=== PATIENT | male | born 1950 | race Caucasian/White ===

== ENCOUNTER 2016-08-10 19:35 | Emergency (ER) | payer MEDICARE, BC ==
[2016-08-10 21:35] VITALS: BP 105/64
--- NOTE | 2016-08-11 03:55 | ER ---
DATE SEEN: 08/10/2016 TIME SEEN: 2000 hours. REASON FOR VISIT: Dizziness. HISTORY OF PRESENT ILLNESS: This is a 66-year-old male, who [facility] after feeling dizzy. He states that he has been working out and went to the sauna, stayed there for few minutes. On the locker room, he felt dizzy and lightheaded, but did not faint. By the time I saw him after a few minutes of resting, he stated that he felt better. He denies any chest pain. PAST MEDICAL HISTORY: History of palpitations, hypertension, physical deconditioning. MEDICATIONS: Reviewed. Please see the electronic record. ALLERGIES: Reviewed. Please see the electronic record. PHYSICAL EXAMINATION: VITAL SIGNS: He had a blood pressure 122/96, initial temperature 97.8, pulse 121 beats per minute, oxygenation was 98% on room air. ENT: Negative. HEAD: Normal size. EYES: Normal. CHEST: Clear. CARDIOVASCULAR: Mild tachycardia. No murmurs. EXTREMITIES: No edema. MENTAL STATUS: Alert. Answers questions appropriately. LABORATORY DATA: White cell count was normal. Normal hemoglobin. Sodium 136, CO2 was 22. Electrolytes were normal. EKG: I reviewed the EKG that showed mild junctional tachycardia about 107 beats per minute. FINAL IMPRESSION: Exertion due to over exertion. PLAN: The patient was rested, had something to eat and drink. He felt better. Discharge to home to follow up p.r.n. with his PCP. /[id number] MIKE/TI
--- NOTE | 2016-08-22 05:29 | ER ---
DATE SEEN: 08/10/2016 ADDENDUM: IMPRESSION: Exhaustion due to physical over exertion. /[id number] MIKE/TI [place]
== END 2016-08-10 21:25 | disposition home or self-care (01) ==
LOC: FB.ED 19:35
DX: T73.3XXA Exhaustion due to excessive exertion, initial encounter (principal); I10 Essential (primary) hypertension
CPT/HCPCS: 36415; 80053; 84484; 85025; 93005; 99283; 99284

== ENCOUNTER 2016-08-16 20:01 | Emergency (ER) | payer MEDICARE, BC ==
[2016-08-16 20:54] VITALS: BP 124/69
--- NOTE | 2016-08-17 12:05 | CR ---
INDICATION: Transient chest pain. CHEST: Two AP views of the chest were obtained upright 08/16/2016 and compared with 06/25/2016 and 01/02/2016, revealing what appears to be some fibrotic change at the left costophrenic angle and/or atelectatic change in that area, with a prominent epicardial fat pad. It is difficult to entirely exclude minimal pneumonia in that area. The heart did not appear grossly enlarged, but appeared somewhat prominent. The aorta is tortuous with calcification in the arch. Overlying EKG leads are noted. The lungs appear to be hyperaerated, raising question of COPD. No definite consolidating pneumonia or effusion was seen. IMPRESSION: 1. Linear densities are again noted at the left costophrenic angle, with what appears to be a prominent epicardial fat pad. Findings may be on the basis of linear atelectasis and/or fibrosis in that area, but make it difficult to exclude minimal patchy pneumonia and minimal pleuritis in that area. 2. Probable COPD. 3. Probable ASHD with ASD aorta. MTDD
--- NOTE | 2016-08-21 09:54 | ER ---
DATE SEEN: 08/16/2016 TIME SEEN: The patient was seen at 2115 hours. CHIEF COMPLAINT: Chest pressure, aches, chest pain. The patient was out walking today and he noted that he did not feel good. When seen in the clinic, his blood pressure was 76/56 and was thought to be dehydrated. Dr. Cervantes gave him IV fluids at the clinic and sent him to the hospital for further evaluation. The patient is status post cardiac stent, one cardiac stent placed in 2012. Had atrial fibrillation resulting in ablation, 01/02/2016. His atrial fibrillation has resolved. He is obese and weighs 280 pounds, is now down to 269 pounds, 08/16/2015. On 08/11/2015, his weight was 265.8 pounds. He notes he participate in [place] exercise activity, wellness activity, and swims and walks. Swimming works better for him. He worked quite aggressively at swimming, in the last couple of days, With his swimming against the jets and notes more recently his heart rate has been up to 136 when he is working and swimming. He was seen on 08/10/2016 for nausea, fast heart rate, and had a normal EKG and no evidence for a myocardial infarction. OTHER SIGNIFICANT PAST MEDICAL HISTORY: In 2012, stent placement, 01/02/2016 atrial ablation, obesity, depression, penicillin allergy, hypothyroidism, GERD, dyslipidemia, alcoholism, and stopped drinking in 1983. He would drink up to a quart of Brick cesia a day and he stopped because he was falling daily and alcoholism was disrupting his life. He is able to maintain a job and still drinking excessive alcohol. He has had a gastric bypass. His weight has dropped with that and his meat eating has decreased. Since his laparoscopic bypass, he has lost approximately 50 pounds and he is also engaged in the Wellness exercise activity at the hospital, which involves swimming. Other surgery, he had marked degenerative hip changes abnormalities and because of this, hip was not replaced, but it was fused and he has 15 degrees of flexion, consequently has a waddle to his gait. He notes when he goes out and walks, he has discomfort in the upper body. I think that is what has happened today, it caused chest discomfort after he walked a mile. He is here to have further evaluation of chest discomfort per Dr. Cervantes. When he walks, he notes he has pain in the upper body, his arms, right shoulder which is greater than left shoulder discomfort, interscapular pain, and trapezial pain. Also, he has left parasternal and right inferior parasternal discomfort. MEDICATIONS: 1. Multivitamins. 2. Calcium with vitamin D. 3. Omeprazole 20 mg daily. 4. Metoprolol succinate one tablet at bedtime. 5. Thyroxine 112 mcg daily. 6. Lexapro 30 mg daily. 7. Simvastatin 20 mg daily. 8. Prednisone 20 mg as directed. REVIEW OF SYSTEMS: Negative except as noted above. He has chest discomfort and muscle aches. Denies gastrointestinal symptoms. Denies current issues about depression although he is on medication for his depression. Does not feel helpless or hopeless. GI: Weight gain. Status post gastric bypass (laparoscopic). Right hip fusion with difficulty with his gait. PHYSICAL EXAMINATION: VITAL SIGNS: Blood pressure 113/65, heart rate 106 and regular, respirations 18, oxygen saturation 98%. GENERAL: Alert markedly overweight man with marked increased AP chest mass and abdominal mass. HEENT: PERRLA intact. Pharynx without abnormality. The patient is alert, no acute distress presently. NECK: Without pain or discomfort. LUNGS: Clear to auscultation without rales, rhonchi, or wheezes. HEART: S1, S2. No murmur. No regularly regular rhythm (atrial fibrillation). ABDOMEN: Soft, increased abdominal girth. He has generalized abdominal discomfort, which he relates to his gastric bypass. No focal pain. No area of significant pain. Most of discomfort is mid epigastric and slightly to the left in the mid epigastric area. No CVA percussion tenderness. No back tenderness. Old scars, laparoscopic scars for his gastric bypass (gastric sleeve operation) noted. EXTREMITIES: Lower extremities without edema. His right lower extremity, he has extensive stasis dermatitis (secondary to unusual infection), he has had infection in his thigh, then he had infection in his right lower extremity, and there is a blue indurated stasis dermatitis and also firm hardened soft tissue without pedal edema. Hip scar is noted on the right. NEURO: Gait is abnormal. He walks and lurches slight, but he is able to manage despite the fact he has fusion of 15 degrees in right hip. LABORATORY FINDINGS: White count 6900, PMNs 55, lymphocytes 35, monos 8, platelets 205,000, hemoglobin 12.9. Indices normal. Complete metabolic panel: Normal except for BUN and creatinine ratio, shows dehydration at 25. Creatinine 0.8, BUN 20. Alkaline phosphatase low at 52, CPK is 98, troponin less than 0.01. Remainder of automated chemistry is normal. EKG; sinus bradycardia, first-degree AV block, SD 214 milliseconds. QT is normal at 89 for his age. Nonspecific intraventricular conduction defect, probable anteroseptal infarct with poor R-wave progression across the anterior precordium (lot of reflexes on previous stent placement.) He denies having myocardial infarction, but I think he did with the stent. Moderate cardiomegaly. This suggests an ectatic aorta, possible mild widening of the aorta and the shadow suggests approximately 4 cm. LABORATORY FINDINGS: As noted. ASSESSMENT: Dehydration. No evidence for myocardial infarction. Morbid obesity. Chest discomfort is musculoskeletal secondary to the pain that is reproduced by left parasternal, sternal chondral joints, T3 through T6-7, and also right parasternal discomfort T5-T6. Also interscapular discomfort, mostly trapezoid and rhomboid and also right upper lateral chest discomfort T2 through T4, mid clavicular line at least 10 cm on each side of the midclavicular line. The patient was convinced that his chest discomfort was secondary to walk induced muscle aches. He is dehydrated. Appears to be hydrated in the ED. He received 2 L of fluid. The patient dismissed to home. To follow up with doctor in 7 days or earlier if worse. No pain medications given to the patient. Continue his current medications. /[id number] FRANCISCA/TI PAY[place]
== END 2016-08-16 23:15 | disposition home or self-care (01) ==
LOC: FB.ED 20:01
DX: R07.9 Chest pain, unspecified (principal); E86.0 Dehydration; E66.01 Morbid (severe) obesity due to excess calories; I48.91 Unspecified atrial fibrillation; F32.9 Major depressive disorder, single episode, unspecified; E03.9 Hypothyroidism, unspecified; K21.9 Gastro-esophageal reflux disease without esophagitis; E78.5 Hyperlipidemia, unspecified; Z98.84 Bariatric surgery status; Z68.41 Body mass index [BMI] 40.0-44.9, adult; Z88.0 Allergy status to penicillin; Z88.2 Allergy status to sulfonamides
CPT/HCPCS: 36415; 71010; 80053; 82550; 84484; 85025; 93005; 99285; J7120; 96360; 99284

== ENCOUNTER 2016-09-20 21:52 | Emergency (ER) | payer MEDICARE, BC ==
[2016-09-20 23:27] VITALS: BP 110/70
--- NOTE | 2016-09-21 00:28 | EDM.PDOC ---
ED HPI GENERAL MEDICAL PROBLEM - General Chief Complaint: Cardiovascular Problem Stated Complaint: RAPID PULSE Time Seen by Provider: 09/20/16 22:05 Source of Information: Reports: Patient History Limitations: Reports: No Limitations - History of Present Illness INITIAL COMMENTS - FREE TEXT/NARRATIVE: c/o dizzy pt had gastric sleeve surgery 3m ago, down 52 lbs, was 317 3m ago, now 265 today c/o dizzy with walking to his vehicle, HR 140 transiently, tries to drink 64 oz daily has had a stent x 1 2012 without an WA, had cardioversion for afib 2012, has stayed in [facility] since ablation 12/20 no CP, just dizzy script supervisor is Dr De Leon at [facility], PCP has been Dr Chong who is retiring no alcohol since 1983 Treatments [employer]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 - Related Data Allergies Allergy/AdvReac Type Severity Reaction Status Date / Time Penicillins Allergy Seizure Verified 09/20/16 22:02 Sulfa (Sulfonamide Allergy Rash Verified 09/20/16 22:02 Antibiotics) Home Meds: Home Meds Escitalopram Oxalate 30 mg PO DAILY 03/07/13 [History] Levothyroxine Sodium 112 mcg PO DAILY 03/07/13 [History] Simvastatin 20 mg PO BEDTIME 06/11/13 [History] Metoprolol Succinate 1 tab PO BEDTIME 10/28/15 [History] Omeprazole 20 mg PO DAILY 06/25/16 [History] Calcium Carbonate/Vitamin D3 [Caltrate-600 with Vit D Tab] 1 each PO DAILY 08/16 [History] Multivitamin [Multi-Day Vitamins] 1 tab PO BID 08/16/16 [History] Past Medical History HEENT History: Reports: Impaired Vision Cardiovascular History: Reports: Arrhythmia, Blood Clots/VTE/DVT, Bypass, High Cholesterol, Hypertension, Stents Musculoskeletal History: Reports: Other (See Below) Other Musculoskeletal History: Fracture of right knee with steel and screw placed. 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 Fx or 3 ribs posterior left side. Fx of 3 ribs anterior left side. Psychiatric History: Reports: Anxiety Endocrine/Metabolic History: Reports: Hypothyroidism - Infectious Disease History Infectious Disease History: Reports: Chicken Pox, Measles - Past Surgical History Cardiovascular Surgical History: Reports: Other (See Below) GI Surgical History: Reports: Bariatric Procedure Social & Family History - Family History Family Medical History: Noncontributory - Tobacco Use Smoking Status *Q: Former Smoker Years of Tobacco use: 10 Used Tobacco, but Quit: Yes Month Tobacco Last Used: unknown Second Hand Smoke Exposure: No - Caffeine Use Caffeine Use: Reports: Coffee - Alcohol Use Days Per Week of Alcohol Use: 0 - Recreational Drug Use Recreational Drug Use: No ED ROS GENERAL - Review of Systems Review Of Systems: See Below Constitutional: Reports: No Symptoms HEENT: Reports: No Symptoms Respiratory: Reports: No Symptoms Cardiovascular: Reports: Palpitations Endocrine: Reports: No Symptoms GI/Abdominal: Reports: No Symptoms : Reports: No Symptoms Musculoskeletal: Reports: No Symptoms Skin: Reports: No Symptoms Neurological: Reports: No Symptoms Psychiatric: Reports: No Symptoms Hematologic/Lymphatic: Reports: No Symptoms Immunologic: Reports: No Symptoms ED EXAM, GENERAL - Physical Exam Exam: See Below Exam Limited By: No Limitations General Appearance: Alert, WD/WN, No Apparent Distress, Other (talkative, nonill ) Nose: Normal Inspection, Normal Mucosa, No Blood Throat/Mouth: Normal Inspection, Normal Lips, Normal Teeth, Normal Gums, Normal Oropharynx, Normal Voice, No Airway Compromise Head: Atraumatic, Normocephalic Neck: Normal Inspection, Supple, Non-Tender, Full Range of Motion Respiratory/Chest: No Respiratory Distress, Lungs Clear, Normal Breath Sounds, No Accessory Muscle Use Cardiovascular: Regular Rate, Rhythm, No Edema, No Gallop, No JVD, No Rub, Other (2/6 TASHA at LSB, occasional PB) GI/Abdominal: Normal Bowel Sounds, Soft, Non-Tender, No Distention Back Exam: Normal Inspection, Full Range of Motion, NT Extremities: Normal Inspection, Normal Range of Motion, Non-Tender, Other ( pretib inc'd pigment from VSD with trace edemat o knees b/l) Neurological: Alert, Oriented, CN II-XII Intact, Normal Cognition, No Motor/ Sensory Deficits Psychiatric: Normal Affect, Normal Mood Skin Exam: Warm, Dry, Intact, No Rash Lymphatic: No Adenopathy Course - Vital Signs Last Recorded V/S: Last Vital Signs Temp 36.7 C 09/20/16 23:26 Pulse 77 09/20/16 23:26 Resp 18 09/20/16 23:26 BP 110/70 09/20/16 23:26 Pulse Ox 97 09/20/16 23:26 - Orders/Labs/Meds Orders: Active Orders 24 hr Category Date Time Status EKG Documentation Completion [RC] ASDIRECTED Care 09/20/16 22:18 Active EKG Documentation Completion [RC] ASDIRECTED Care 09/20/16 22:23 Inactive Chest 2V [CR] Stat Exams 09/20/16 22:23 Taken EKG 12 Lead [EK] Routine Ther 09/20/16 22:18 Ordered EKG 12 Lead [EK] Routine Ther 09/20/16 22:22 Stop Req Labs: Laboratory Tests 09/20/16 09/20/16 09/20/16 Range/Units 22:35 22:35 22:35 WBC 6.1 (4.5-12.0) X10-3/uL RBC 4.49 (4.30-5.75) x10(6)uL Hgb 13.5 (11.5-15.5) g/dL Hct 40.7 (30.0-51.3) % MCV 90.5 (80-96) fL MCH 30.1 (27.7-33.6) pg MCHC 33.3 (32.2-35.4) g/dL RDW 12.4 (11.5-15.5) % Plt Count 224 (125-369) X10(3)uL MPV 7.2 L (7.4-10.4) fL Neut % (Auto) 51.1 (46-82) % Lymph % (Auto) 38.3 H (13-37) % [facility] % (Auto) 8.0 (4-12) % Eos % (Auto) 2 (1.0-5.0) % Baso % (Auto) 1 (0-2) % Neut # (Auto) 3.1 (1.6-8.3) # Lymph # (Auto) 2.3 (0.6-5.0) # [facility] # (Auto) 0.5 (0.0-1.3) # Eos # (Auto) 0.1 (0.0-0.8) # Baso # (Auto) 0.1 (0.0-0.2) # Sodium 138 (135-145) mmol/L Potassium 3.9 (3.5-5.3) mmol/L Chloride 104 (100-110) mmol/L Carbon Dioxide 25 (23-29) mmol/L BUN 17 (8-23) mg/dL Creatinine 0.8 (0.6-1.3) mg/dL Est Cr Clr Drug Dosing 91.25 mL/min Estimated GFR (MDRD) > 60 (>60) BUN/Creatinine Ratio 21.3 H (9-20) Glucose 89 (80-116) mg/dL Calcium 9.4 (8.6-10.2) mg/dL Total Bilirubin 0.6 (0.1-1.3) mg/dL AST 24 (5-27) IU/L ALT 21 D (14-26) IU/L Alkaline Phosphatase 63 (56-112) IU/L Troponin I < 0.01 L (0.02-0.06) NG/ML C-Reactive Protein < 0.5 (0.0-1.0) mg/dL B-Natriuretic Peptide (0-100) pg/mL Total Protein 7.2 (6.0-8.0) g/dL Albumin 4.0 (3.2-4.6) g/dL Globulin 3.2 g/dL Albumin/Globulin Ratio 1.3 // Range/Units 22:35 WBC (4.5-12.0) X10-3/uL RBC (4.30-5.75) x10(6)uL Hgb (11.5-15.5) g/dL Hct (30.0-51.3) % MCV (80-96) fL MCH (27.7-33.6) pg MCHC (32.2-35.4) g/dL RDW (11.5-15.5) % Plt Count (125-369) X10(3)uL MPV (7.4-10.4) fL Neut % (Auto) (46-82) % Lymph % (Auto) (13-37) % [facility] % (Auto) (4-12) % Eos % (Auto) (1.0-5.0) % Baso % (Auto) (0-2) % Neut # (Auto) (1.6-8.3) # Lymph # (Auto) (0.6-5.0) # [facility] # (Auto) (0.0-1.3) # Eos # (Auto) (0.0-0.8) # Baso # (Auto) (0.0-0.2) # Sodium (135-145) mmol/L Potassium (3.5-5.3) mmol/L Chloride (100-110) mmol/L Carbon Dioxide (23-29) mmol/L BUN (8-23) mg/dL Creatinine (0.6-1.3) mg/dL Est Cr Clr Drug Dosing mL/min Estimated GFR (MDRD) (>60) BUN/Creatinine Ratio (9-20) Glucose (80-116) mg/dL Calcium (8.6-10.2) mg/dL Total Bilirubin (0.1-1.3) mg/dL AST (5-27) IU/L ALT (14-26) IU/L Alkaline Phosphatase (56-112) IU/L Troponin I (0.02-0.06) NG/ML C-Reactive Protein (0.0-1.0) mg/dL B-Natriuretic Peptide 112 H (0-100) pg/mL Total Protein (6.0-8.0) g/dL Albumin (3.2-4.6) g/dL Globulin g/dL Albumin/Globulin Ratio - Re-Assessments/Exams Free Text/Narrative Re-Assessment/Exam: 09/21/16 00:29 w/u here is neg, sxs appear related to diet and weight loss and a heavy workout in the gym yesterday, no evidence of afib or cardiac issues Departure - Departure Time of Disposition: 00:32 Disposition: Home, Self-Care 01 Condition: good Clinical Impression: Palpitations Forms: ED Department Discharge Additional Instructions: Continue your current meds. Maintain fluids and your current diet. See your doctor later today or tomorrow. Return to ED if you are feeling worse. Call your Physician or Return to Emergency Department if: * Your condition worsens in any way. * You develop fever greater than 100.4. * You have vomitting that does not stop with medications. * You have pain that is not controlled with medications. - My Orders Last 24 Hours: My Active Orders 09/20/16 22:18 EKG Documentation Completion [RC] ASDIRECTED EKG 12 Lead [EK] Routine 09/20/16 22:22 EKG 12 Lead [EK] Routine 09/20/16 22:23 EKG Documentation Completion [RC] ASDIRECTED Chest 2V [CR] Stat - Assessment/Plan Last 24 Hours: My Active Orders 09/20/16 22:18 EKG Documentation Completion [RC] ASDIRECTED EKG 12 Lead [EK] Routine 09/20/16 22:22 EKG 12 Lead [EK] Routine 09/20/16 22:23 EKG Documentation Completion [RC] ASDIRECTED Chest 2V [CR] Stat
--- NOTE | 2016-09-22 09:06 | CR ---
INDICATION: Dizziness, tachycardia. CHEST: PA and lateral views of the chest with two PA views, 09/20/2016, were compared with 08/16/2016 and 06/25/2016, revealing evidence of ASHD with LVE. An anterior compression fracture of indeterminate age is noted at an upper middle thoracic level of mild degree. Diaphragm leaves are flattened with prominent AP diameter, suggesting the possibility of COPD. Linear density at the left lung base most likely is fibrotic in nature with epicardial fat pad adjacent in the lingula. A definite active infiltrate or effusion was not identified. Healed rib fractures are noted posteriorly on the right x4. IMPRESSION: 1. No definite acute process, but difficult to exclude patchy bronchopneumonia versus atelectasis versus scarring at the left lung base. 2. COPD. 3. ASHD with LVE. MTDD
== END 2016-09-21 00:50 | disposition home or self-care (01) ==
LOC: FB.ED 21:52
DX: R00.2 Palpitations (principal); I10 Essential (primary) hypertension; E78.00 Pure hypercholesterolemia, unspecified; E03.9 Hypothyroidism, unspecified; Z87.891 Personal history of nicotine dependence; Z98.890 Other specified postprocedural states; Z95.4 Presence of other heart-valve replacement; Z79.899 Other long term (current) drug therapy; Z88.0 Allergy status to penicillin; Z88.2 Allergy status to sulfonamides
CPT/HCPCS: 36415; 71020; 80053; 83880; 84484; 85025; 86140; 93005; 99283; 99285

== ENCOUNTER 2017-04-13 02:19 | Observation (INO) | payer MEDICARE, BC ==
--- NOTE | 2017-04-13 02:53 | EDM.PDOC ---
ED HPI GENERAL MEDICAL PROBLEM - General Chief Complaint: Neurological Problem Stated Complaint: SYNCOPY EPISODE Time Seen by Provider: 04/13/17 02:19 Source of Information: Reports: Patient History Limitations: Reports: No Limitations - History of Present Illness INITIAL COMMENTS - FREE TEXT/NARRATIVE: 66 years old w m with a h/o HTN came to the ed by EMS due to an episode of lightheadedness and dizziness unable to focus and dial a phone number. He may have passed out for a few sec or a minute. It was not witnessed. Pt was eating Dinner ( end of finishing the meal) and watching TV at that time. This kind of episode never happened before. No trauma, no N/V/D. He has a h/o Vertigo in the past. As a youngster, he had a lot of had traumas. Denied a h/o stroke. No other acute medical issues at this time. Pt take metoprolol for his Hypertension. BP 109/58 Temp 97.4 pulse 55 RR 14 Pulse ox 95% 0n RA Onset: Today Onset Date: 04/13/17 Onset Time: 01:00 Duration: Hour(s):, Improving Location: Reports: Head, Neck Quality: Reports: Other (dizzy) Severity: Mild Improves with: Reports: Rest Worsens with: Reports: Movement Context: Reports: Other (fellt dizzy while eating a meal and watching TV) - Related Data Allergies Allergy/AdvReac Type Severity Reaction Status Date / Time Penicillins Allergy Seizure Verified 04/13/17 02:30 Sulfa (Sulfonamide Allergy Rash Verified 04/13/17 02:30 Antibiotics) Home Meds: Home Meds Escitalopram Oxalate 30 mg PO DAILY 03/07/13 [History] Levothyroxine Sodium 112 mcg PO DAILY 03/07/13 [History] Simvastatin 20 mg PO BEDTIME 06/11/13 [History] Metoprolol Succinate 1 tab PO BEDTIME 10/28/15 [History] Calcium Carbonate/Vitamin D3 [Caltrate-600 with Vit D Tab] 2 each PO BID [History] Multivitamin [Multi-Day Vitamins] 1 tab PO BID 08/16/16 [History] Vitamin E 400 unit PO BEDTIME 04/13/17 [History] Past Medical History HEENT History: Reports: Impaired Vision Cardiovascular History: Reports: Arrhythmia, Blood Clots/VTE/DVT, Bypass, High Cholesterol, Hypertension, Stents Musculoskeletal History: Reports: Other (See Below) Other Musculoskeletal History: Fracture of right knee with steel and screw placed. 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 Fx or 3 ribs posterior left side. Fx of 3 ribs anterior left side. Psychiatric History: Reports: Anxiety Endocrine/Metabolic History: Reports: Hypothyroidism - Infectious Disease History Infectious Disease History: Reports: Chicken Pox, Measles - Past Surgical History Cardiovascular Surgical History: Reports: Other (See Below) GI Surgical History: Reports: Bariatric Procedure Social & Family History - Family History Family Medical History: Noncontributory - Tobacco Use Smoking Status *Q: Former Smoker Years of Tobacco use: 10 Used Tobacco, but Quit: Yes Month Tobacco Last Used: unknown Second Hand Smoke Exposure: No - Caffeine Use Caffeine Use: Reports: Coffee - Alcohol Use Days Per Week of Alcohol Use: 0 - Recreational Drug Use Recreational Drug Use: No ED ROS GENERAL - Review of Systems Review Of Systems: See Below Constitutional: Reports: No Symptoms HEENT: Reports: No Symptoms Respiratory: Reports: No Symptoms Cardiovascular: Reports: No Symptoms Endocrine: Reports: No Symptoms GI/Abdominal: Reports: No Symptoms : Reports: No Symptoms Musculoskeletal: Reports: No Symptoms Skin: Reports: No Symptoms Neurological: Reports: Dizziness Psychiatric: Reports: No Symptoms Hematologic/Lymphatic: Reports: No Symptoms Immunologic: Reports: No Symptoms ED EXAM, NEURO - Physical Exam Exam: See Below Exam Limited By: No Limitations General Appearance: Alert, WD/WN, No Apparent Distress, Obese Eye Exam: Bilateral Eye: EOMI, Nystagmus (bilateral), PERRL Ears: Normal External Exam Nose: Normal Inspection Throat/Mouth: Normal Inspection Head Exam: Atraumatic, Normocephalic Neck: Normal Inspection, Supple, Non-Tender Respiratory/Chest: No Respiratory Distress, Lungs Clear Cardiovascular: Normal Peripheral Pulses, Regular Rate, Rhythm, No Edema GI/Abdominal: Normal Bowel Sounds, Soft, Non-Tender, No Organomegaly (Male) Exam: Deferred Rectal (Males) Exam: Deferred Neurological: Alert, Normal Mood/Affect, CN II-XII Intact, Oriented x 3, Other ( Normal FGF and FN test, holds hand and legs up for more then 10 sec.) Back Exam: Normal Inspection, Full Range of Motion Extremities: Normal Inspection, Normal Range of Motion Psychiatric: Normal Affect, Normal Mood Skin Exam: Warm, Dry, Intact, Normal Color EKG INTERPRETATION EKG Date: 04/13/17 Time: 02:25 Rhythm: NSR Rate (Beats/Min): 56 [place]: LAD-Left [place] Deviation P-Wave: Present QRS: Normal ST-T: Normal QT: Normal Comparison: NA - No Prior EKG Course - Vital Signs Text/Narrative:: 66 years old w m with a h/o HTN came to the ed by EMS due to an episode of lightheadedness and dizziness unable to focus and dial a phone number. He may have passed out for a few sec or a minute. It was not witnessed. Pt was eating Dinner ( end of finishing the meal) and watching TV at that time. This kind of episode never happened before. No trauma, no N/V/D. He has a h/o Vertigo in the past. As a youngster, he had a lot of had traumas. Denied a h/o stroke. No other acute medical issues at this time. Pt take metoprolol for his Hypertension. BP 109/58 Temp 97.4 pulse 55 RR 14 Pulse ox 95% 0n RA PE: Dizzyness with bilateral Nystagmus, bradycardia, dry mucosal membrane Imaging: CT head: Mild defuse cortical atrophy, no acute infarct, hemorrhage ar mass effect. C Spine: No acute changes Labs: CBC and BMP were Nl except BUN was 25 and Cr was 0.8 Impression: TIA vs CVA vs postprandial syncope. H/O benign positional vertigo, Bradycardia, Dehydration (BUN/CR ratio elevated), bilat nystagmus Tx: Antivert, NS Reexam: Pt had no syncopal episode while here in the ed Plan: Hydration, carotis U/S, poss MRI of brain and neck Last Recorded V/S: Last Vital Signs Temp 36.3 C 04/13/17 02:19 Pulse 62 04/13/17 02:19 Resp 16 04/13/17 04:00 BP 112/55 L 04/13/17 04:00 Pulse Ox 98 04/13/17 04:00 Orthostatic Blood Pressure [ 124/67 Standing] Orthostatic Blood Pressure [ 115/71 Sitting] Orthostatic Blood Pressure [ 116/63 Supine] - Orders/Labs/Meds Orders: Active Orders 24 hr Category Date Time Status EKG Documentation Completion [RC] ASDIRECTED Care 04/13/17 02:47 Active Cervical Spine wo Cont [CT] Stat Exams 04/13/17 03:02 Taken Head wo Cont [CT] Stat Exams 04/13/17 03:02 Ordered EKG 12 Lead [EK] Routine Ther 04/13/17 02:46 Ordered Medication Orders Sodium Chloride (Normal Saline) 1,000 mls @ 125 mls/hr IV ASDIRECTED LYNNETTE Sodium Chloride (Saline Flush) 10 ml FLUSH ASDIRECTED PRN PRN Reason: Keep Vein Open Labs: Laboratory Tests 04/13/17 04/13/17 04/13/17 Range/Units 02:35 02:35 02:35 WBC 7.0 (4.5-12.0) X10-3/uL RBC 4.17 L (4.30-5.75) x10(6)uL Hgb 12.8 (11.5-15.5) g/dL Hct 37.7 (30.0-51.3) % MCV 90.4 (80-96) fL MCH 30.7 (27.7-33.6) pg MCHC 33.9 (32.2-35.4) g/dL RDW 12.1 (11.5-15.5) % Plt Count 257 (125-369) X10(3)uL MPV 6.7 L (7.4-10.4) fL Neut % (Auto) 52.8 (46-82) % Lymph % (Auto) 35.8 (13-37) % [place] % (Auto) 7.5 (4-12) % Eos % (Auto) 3 (1.0-5.0) % Baso % (Auto) 1 (0-2) % Neut # (Auto) 3.7 (1.6-8.3) # Lymph # (Auto) 2.5 (0.6-5.0) # [place] # (Auto) 0.5 (0.0-1.3) # Eos # (Auto) 0.2 (0.0-0.8) # Baso # (Auto) 0.1 (0.0-0.2) # PT (8.7-11.1) INR (0.89-1.13) Sodium 141 (135-145) mmol/L Potassium 4.2 (3.5-5.3) mmol/L Chloride 106 (100-110) mmol/L Carbon Dioxide 25 (21-32) mmol/L BUN 25 H (7-18) mg/dL Creatinine 0.8 (0.70-1.30) mg/dL Est Cr Clr Drug Dosing 91.25 mL/min Estimated GFR (MDRD) > 60 (>60) BUN/Creatinine Ratio 31.3 H (9-20) Glucose 107 (80-116) mg/dL Calcium 9.2 (8.6-10.2) mg/dL Total Bilirubin 0.4 (0.1-1.3) mg/dL AST 19 (5-25) IU/L ALT 28 (12-36) U/L Alkaline Phosphatase 68 (56-112) IU/L Troponin I < 0.017 L (<0.017-0.056) ng/mL NT-Pro-B Natriuret Pep (<=125) pg/mL Total Protein 7.1 (6.0-8.0) g/dL Albumin 3.5 (3.2-4.6) g/dL Globulin 3.6 g/dL Albumin/Globulin Ratio 1.0 04/13/17 04/13/17 Range/Units 02:35 02:35 WBC (4.5-12.0) X10-3/uL RBC (4.30-5.75) x10(6)uL Hgb (11.5-15.5) g/dL Hct (30.0-51.3) % MCV (80-96) fL MCH (27.7-33.6) pg MCHC (32.2-35.4) g/dL RDW (11.5-15.5) % Plt Count (125-369) X10(3)uL MPV (7.4-10.4) fL Neut % (Auto) (46-82) % Lymph % (Auto) (13-37) % [place] % (Auto) (4-12) % Eos % (Auto) (1.0-5.0) % Baso % (Auto) (0-2) % Neut # (Auto) (1.6-8.3) # Lymph # (Auto) (0.6-5.0) # [place] # (Auto) (0.0-1.3) # Eos # (Auto) (0.0-0.8) # Baso # (Auto) (0.0-0.2) # PT 10.4 (8.7-11.1) INR 1.03 (0.89-1.13) Sodium (135-145) mmol/L Potassium (3.5-5.3) mmol/L Chloride (100-110) mmol/L Carbon Dioxide (21-32) mmol/L BUN (7-18) mg/dL Creatinine (0.70-1.30) mg/dL Est Cr Clr Drug Dosing mL/min Estimated GFR (MDRD) (>60) BUN/Creatinine Ratio (9-20) Glucose (80-116) mg/dL Calcium (8.6-10.2) mg/dL Total Bilirubin (0.1-1.3) mg/dL AST (5-25) IU/L ALT (12-36) U/L Alkaline Phosphatase (56-112) IU/L Troponin I (<0.017-0.056) ng/mL NT-Pro-B Natriuret Pep 153 H (<=125) pg/mL Total Protein (6.0-8.0) g/dL Albumin (3.2-4.6) g/dL Globulin g/dL Albumin/Globulin Ratio Meds: Medications Generic Name Dose Route Start Last Admin Trade Name Freq PRN Reason Stop Dose Admin Sodium Chloride 1,000 mls @ 125 mls/hr 04/13/17 05:00 Normal Saline IV ASDIRECTED LYNNETTE Sodium Chloride 10 ml 04/13/17 04:22 Saline Flush FLUSH ASDIRECTED PRN Keep Vein Open Discontinued Medications Generic Name Dose Route Start Last Admin Trade Name Freq PRN Reason Stop Dose Admin Meclizine HCl 50 mg 04/13/17 03:03 Antivert PO 04/13/17 03:04 ONETIME STA Departure - Departure Time of Disposition: 04:48 Disposition: Refer to Observation Condition: Fair Clinical Impression: TIA (transient ischemic attack) Qualifiers: Transient cerebral ischemia type: unspecified Qualified Code(s): G45.9 - Transient cerebral ischemic attack, unspecified - Discharge Information - My Orders Last 24 Hours: My Active Orders 04/13/17 02:46 EKG 12 Lead [EK] Routine 04/13/17 02:47 EKG Documentation Completion [RC] ASDIRECTED 04/13/17 03:02 Cervical Spine wo Cont [CT] Stat Head wo Cont [CT] Stat - Assessment/Plan Last 24 Hours: My Active Orders 04/13/17 02:46 EKG 12 Lead [EK] Routine 04/13/17 02:47 EKG Documentation Completion [RC] ASDIRECTED 04/13/17 03:02 Cervical Spine wo Cont [CT] Stat Head wo Cont [CT] Stat
[2017-04-13] MEDS ORDERED: Meclizine 25 MG Tab PO STA (03:03)
[2017-04-13] MEDS ORDERED: Sodium Chloride 0.9% 10 ML Syringe FLUSH PRN (04:22)
[2017-04-13] MEDS ORDERED: Sodium Chloride 0.9% 1,000 ML IV SCH (05:00)
[2017-04-13] MEDS ORDERED: LEVOTHYROXINE SODIUM 112 MCG PO SCH (09:00)
[2017-04-13] MEDS ORDERED: Non-Formulary Medication 1 Each (Calcium Carbonate/Vitamin D3 [Caltrate 600 Plus D3 Tablet PO SCH (09:00)
[2017-04-13] MEDS ORDERED: ESCITALOPRAM OXALATE 30 MG PO SCH (09:00)
[2017-04-13] MEDS ORDERED: MULTIVITAMIN PO SCH (09:00)
--- NOTE | 2017-04-13 09:09 | PCM.HP ---
H&P History of Present Illness - General Date of Service: 04/13/17 Admit Problem/Dx: Admission Diagnosis/Problem Admission Diagnosis/Problem Dizziness Source of Information: Patient, EMS History Limitations: Reports: No Limitations - History of Present Illness Initial Comments - Free Text/Narative: This is a 66-year-old male patient was eating dinner at 11:30 last night. After he ate he felt dizzy and confused with blurred vision and double vision. He says he stood up and walked in the did not have abnormal coordination. This lasted for about 1-2 minutes. He is very scared because nothing like this has ever happened to him before. So he called 911. He says when he first tried to call 911 he couldn't see the phone for about 40 seconds. He came in by ambulance. He did not pass out or hit his head. He has no history of stroke or [place]. He has a history of A. fib with status post ablation. He denied dysphagia, aphasia, lateralizing weakness, paresthesias. Today he feels normal but a little weak. He felt weak after this incident also. - Related Data Allergies/Adverse Reactions: Allergies Allergy/AdvReac Type Severity Reaction Status Date / Time Penicillins Allergy Seizure Verified 04/13/17 02:30 Sulfa (Sulfonamide Allergy Rash Verified 04/13/17 02:30 Antibiotics) Home Medications: Home Meds Escitalopram Oxalate 30 mg PO DAILY 03/07/13 [History] Levothyroxine Sodium 112 mcg PO DAILY 03/07/13 [History] Simvastatin 20 mg PO BEDTIME 06/11/13 [History] Metoprolol Succinate 1 tab PO BEDTIME 10/28/15 [History] Calcium Carbonate/Vitamin D3 [Caltrate-600 with Vit D Tab] 2 each PO BID [History] Multivitamin [Multi-Day Vitamins] 1 tab PO BID 08/16/16 [History] Vitamin E 400 unit PO BEDTIME 04/13/17 [History] Past Medical History HEENT History: Reports: Impaired Vision Cardiovascular History: Reports: Afib, Arrhythmia, Blood Clots/VTE/DVT, High Cholesterol, Hypertension, Stents Other Cardiovascular History: hx a fib, had ablation, had 1 stent. Respiratory History: Reports: Asthma, Sleep Apnea Gastrointestinal History: Reports: GERD Musculoskeletal History: Reports: Other (See Below) Other Musculoskeletal History: Fracture of right knee with steel and screw placed. 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 Fx or 3 ribs posterior left side. Fx of 3 ribs anterior left side. Neurological History: Reports: Concussion, Vertigo Psychiatric History: Reports: Anxiety, Other (See Below) Other Psychiatric History: hx ETOH abuse Endocrine/Metabolic History: Reports: Hypothyroidism, Obesity/BMI 30+ Hematologic History: Reports: Anemia, Blood Transfusion(s), Transfusion Reaction - Infectious Disease History Infectious Disease History: Reports: Chicken Pox, Measles Other Infectious Disease History: hx osteomyelitis R hip. - Past Surgical History HEENT Surgical History: Reports: Oral Surgery, Tonsillectomy Cardiovascular Surgical History: Reports: Cardiac Ablation, Coronary Artery Stent, Other (See Below) Other Cardiovascular Surgeries/Procedures: afib GI Surgical History: Reports: Bariatric Procedure, Cholecystectomy, Hernia Repair/Other, Other (See Below) Other GI Surgeries/Procedures: stomach sleeve Neurological Surgical History: Reports: None Social & Family History - Family History Family Medical History: Noncontributory - Tobacco Use Smoking Status *Q: Never Smoker Years of Tobacco use: 10 Used Tobacco, but Quit: Yes Month Tobacco Last Used: unknown Second Hand Smoke Exposure: No - Caffeine Use Caffeine Use: Reports: None - Alcohol Use Days Per Week of Alcohol Use: 0 - Recreational Drug Use Recreational Drug Use: No H&P Review of Systems - Review of Systems: Review Of Systems: See Below General: Reports: Weakness HEENT: Reports: Other (See history of present illness) Pulmonary: Reports: No Symptoms Gastrointestinal: Reports: No Symptoms Genitourinary: Reports: No Symptoms Musculoskeletal: Reports: No Symptoms Skin: Reports: No Symptoms Psychiatric: Reports: No Symptoms Neurological: Reports: No Symptoms Hematologic/Lymphatic: Reports: No Symptoms Immunologic: Reports: No Symptoms Exam - Exam Exam: See Below - Vital Signs Vital Signs: Last Vital Signs Temp 97.5 F 04/13/17 08:05 Pulse 56 L 04/13/17 08:05 Resp 18 04/13/17 08:05 BP 115/68 04/13/17 08:05 Pulse Ox 94 L 04/13/17 08:05 Weight: 249 lb 14.4 oz - Exam General: Alert, Oriented, Cooperative HEENT: PERRLA, Conjunctiva Clear, EACs Clear, EOMI, Hearing Intact, Mucosa Moist & [place], Nares Patent, Normal Nasal Septum, Posterior Pharynx Clear, Pupils Equal, Pupils Reactive, TMs Clear, Other (Not able to visualize fundus bilateral) Neck: Supple, Trachea Midline, 2 Lungs: Clear to Auscultation, Normal Respiratory Effort. No: Crackles, Rales, Rhonchi Cardiovascular: Regular Rate, Regular Rhythm, Normal S1, Normal S2. No: Irregular Rhythm, Bradycardia, Tachycardia, Systolic Murmur, Diastolic Murmur GI/Abdominal Exam: Normal Bowel Sounds, Soft, Non-Tender, No Organomegaly, No Distention, No Abnormal Bruit, No Mass, Pelvis Stable Back Exam: Normal Inspection, Full Range of Motion, NT Extremities: No Pedal Edema Skin: Warm, Dry, Intact Neurological: Cranial Nerves Intact, Reflexes Equal Bilateral Neuro Extensive - Mental Status: Alert, Oriented x3, Normal Mood/Affect, Normal Cognition Neuro Extensive - Motor, Sensory, Reflexes: CN II-XII Intact, Normal Gait, Normal Reflexes DTR: 0: Achilles (L), Achilles (R), 1+: Bicep (L), Bicep (R), Tricep (L), Tricep (R), Patella (L), Patella (R) Psychiatric: Alert, Normal Affect, Normal Mood - Patient Data Result Diagrams: 04/13/17 02:35 04/13/17 02:35 *Q Meaningful Use (ADM) - VTE *Q VTE Criteria *Q: - Stroke *Q Stroke Criteria *Q: - AMI *Q AMI Criteria *Q: - Problem List (1) Palliative care status SNOMED Code(s): 406948258 ICD Code: Z51.5 - ENCOUNTER FOR PALLIATIVE CARE Status: Acute Current Visit: Yes (2) TIA (transient ischemic attack) SNOMED Code(s): 071181484 ICD Code: G45.9 - TRANSIENT CEREBRAL ISCHEMIC ATTACK, UNSPECIFIED Status: Acute Current Visit: Yes Qualifiers: Transient cerebral ischemia type: unspecified Qualified Code(s): G45.9 - Transient cerebral ischemic attack, unspecified Problem List Initiated/Reviewed/Updated: No Orders Last 24hrs: Active Orders 24 hr Category Date Time Status Brain wo Cont [MR] Routine Exams 04/13/17 09:00 Ordered Carotid Comp [US] Stat Exams 04/13/17 04:27 Ordered Aspirin Med 04/13/17 09:15 Ordered 81 mg PO DAILY Calcium Carbonate/Vitamin D3 [Caltrate 600 Plus D3 Med 04/13/17 09:00 Ordered Tablet] 2 each PO BID Escitalopram Oxalate [Escitalopram Oxalate] Med 04/13/17 09:00 Ordered 30 mg PO DAILY Levothyroxine Sodium [Levothyroxine Sodium] Med 04/13/17 09:00 Ordered 112 mcg PO DAILY Metoprolol Succinate [Metoprolol Succinate] Med 04/13/17 21:00 Ordered 1 tab PO BEDTIME Multivitamin [Multi-Day Vitamins] Med 04/13/17 09:00 Ordered 1 tab PO BID Simvastatin [Simvastatin] Med 04/13/17 21:00 Ordered 20 mg PO BEDTIME Vitamin E [Vitamin E] Med 04/13/17 21:00 Ordered 400 unit PO BEDTIME Convert IV to Saline Lock [OM.PC] Routine Oth 04/13/17 09:00 Ordered Medication Orders Aspirin (Aspirin) 81 mg PO DAILY LYNNETTE Non-Formulary Medication (Calcium Carbonate/Vitamin D3 [Caltrate 600 Plus D3 Tablet]) 2 each PO BID LYNNETTE Non-Formulary Medication (Escitalopram Oxalate [Escitalopram Oxalate]) 30 mg PO DAILY LYNNETTE Non-Formulary Medication (Levothyroxine Sodium [Levothyroxine Sodium]) 112 mcg PO DAILY LYNNETTE Non-Formulary Medication (Metoprolol Succinate [Metoprolol Succinate]) 1 tab PO BEDTIME LYNNETTE Non-Formulary Medication (Multivitamin [Multi-Day Vitamins]) 1 tab PO BID LYNNETTE Non-Formulary Medication (Simvastatin [Simvastatin]) 20 mg PO BEDTIME LYNNETTE Non-Formulary Medication (Vitamin E [Vitamin E]) 400 unit PO BEDTIME LYNNETTE Assessment/Plan Comment:: This a TIA until proven otherwise. He was monitored for his telemetry Lasix. Telemetry. Stop his IV fluids and give her regular diet. Carotid ultrasound has been ordered. We'll order an MRI outpatient. Patient can take his home medications and will start an 81 mg aspirin a day. Up ad tao.
[2017-04-13] MEDS ORDERED: Aspirin 81 MG Tab.Chew PO SCH (09:15)
--- NOTE | 2017-04-13 15:23 | US ---
INDICATION: CVA versus TIA. DUPLEX ULTRASOUND, CEREBRAL ARTERIES: Utilizing 2-D real time, duplex Doppler spectral analysis, and color flow imaging, examination of the cerebral arteries revealed antegrade vertebral artery flow bilaterally. Mild to moderate intimal thickening is noted, somewhat variable. Smooth, minimally calcified to mildly calcified plaques are noted in the mid to distal CCAs and especially at the bifurcations and branches. However, no significant appearing peak systolic velocity elevation was identified, with ICA/ CCA ratios felt to be in the range of 1-15% - likely toward the upper portion of that range. ICA/CCA ratios were 0.99 and 1.13 on the right and left respectively. IMPRESSION: 1. ICA stenosis is felt to be in the range of 1-15%, most likely at the upper portion of that range. 2. No ulcerations in plaques identified. 3. Antegrade vertebral artery flow is noted bilaterally. Report faxed to Dr. Hollingsworth on 04/13/2017 at 1525 hours. [facility]
[2017-04-13 17:09] VITALS: BP 127/74
--- NOTE | 2017-04-13 18:21 | PCM.SN ---
- Free Text/Narrative Note: Patient is asymptomatic. Carotid ultrasound shows less than 0-15% stenosis. Not able do MRI today. Discharge to home and have new MRI of brain outpatient and recheck.
--- NOTE | 2017-04-13 18:22 | PCM.DCSUM1 ---
Discharge Summary - Hospital Course Free Text/Narrative:: Hospital course-patient had telemetry and there is no reason for his dizzy episode with his heart. CT of the head showed no acute changes. Order the MRI but it's not available today. Did a carotid ultrasound showed 0-15% stenosis. Patient was asymptomatic here so we'll discharge to home and do an MRI outpatient follow-up with his primary provider. Brief History: This is a 66-year-old male patient was eating dinner at 11:30 last night. After he ate he felt dizzy and confused with blurred vision and double vision. He says he stood up and walked in the did not have abnormal coordination. This lasted for about 1-2 minutes. He is very scared because nothing like this has ever happened to him before. So he called 911. He says when he first tried to call 911 he couldn't see the phone for about 40 seconds. He came in by ambulance. He did not pass out or hit his head. He has no history of stroke or [place]. He has a history of A. fib with status post ablation. He denied dysphagia, aphasia, lateralizing weakness, paresthesias. Today he feels normal but a little weak. He felt weak after this incident also. - Discharge Data Discharge Date: 04/13/17 Discharge Disposition: Home, Self-Care 01 Condition: Good - Discharge Diagnosis/Problem(s) (1) Palliative care status SNOMED Code(s): 798025432 ICD Code: Z51.5 - ENCOUNTER FOR PALLIATIVE CARE Status: Acute (2) TIA (transient ischemic attack) SNOMED Code(s): 636002445 ICD Code: G45.9 - TRANSIENT CEREBRAL ISCHEMIC ATTACK, UNSPECIFIED Status: Acute Qualifiers: Transient cerebral ischemia type: unspecified Qualified Code(s): G45.9 - Transient cerebral ischemic attack, unspecified - Patient Instructions Diet: Heart Healthy Diet Activity: As Tolerated Driving: May Drive Today Showering/Bathing: May Shower Other/Special Instructions: 1. Recheck with primary provider in one week. 2. MRI outpatient which is only been ordered. - Discharge Plan Home Medications: Home Meds Escitalopram Oxalate 30 mg PO DAILY 03/07/13 [History] Levothyroxine Sodium 112 mcg PO DAILY 03/07/13 [History] Simvastatin 20 mg PO BEDTIME 06/11/13 [History] Metoprolol Succinate 1 tab PO BEDTIME 10/28/15 [History] Calcium Carbonate/Vitamin D3 [Caltrate 600 Plus D3 Tablet] 2 each PO BID [History] Multivitamin [Multi-Day Vitamins] 1 tab PO BID 08/16/16 [History] Aspirin 81 mg PO DAILY tab.chew 04/13/17 [Rx] Vitamin E 400 unit PO BEDTIME 04/13/17 [History] Forms: ED Department Discharge Referrals: Kesha Branch NP [Primary Care Provider] - - Discharge Summary/Plan Comment DC Time >30 min.: No - Patient Data Vitals - Most Recent: Last Vital Signs Temp 97.3 F 04/13/17 16:30 Pulse 48 L 04/13/17 16:30 Resp 20 04/13/17 16:30 BP 127/74 04/13/17 16:30 Pulse Ox 96 04/13/17 16:30 Weight - Most Recent: 249 lb 14.4 oz I&O - Last 24 hours: Intake & Output 04/13/17 04/13/17 04/13/17 06:59 14:59 22:59 Intake Total 518 Output Total 300 400 Balance -300 118 Med Orders - Current: Current Medications Discontinued Medications Aspirin (Aspirin) 81 mg PO DAILY [facility] Last Admin: 04/13/17 14:02 Dose: 81 mg Sodium Chloride (Normal Saline) 1,000 mls @ 125 mls/hr IV ASDIRECTED LYNNETTE Last Admin: 04/13/17 05:00 Dose: 125 mls/hr Meclizine HCl (Antivert) 50 mg PO ONETIME STA Stop: 04/13/17 03:04 Last Admin: 04/13/17 04:50 Dose: 50 mg Non-Formulary Medication (Calcium Carbonate/Vitamin D3 [Caltrate 600 Plus D3 Tablet]) 2 each PO BID LYNNETTE Non-Formulary Medication (Escitalopram Oxalate [Escitalopram Oxalate]) 30 mg PO DAILY LYNNETTE Non-Formulary Medication (Levothyroxine Sodium [Levothyroxine Sodium]) 112 mcg PO DAILY LYNNETTE Non-Formulary Medication (Metoprolol Succinate [Metoprolol Succinate]) 1 tab PO BEDTIME LYNNETTE Non-Formulary Medication (Multivitamin [Multi-Day Vitamins]) 1 tab PO BID LYNNETTE Non-Formulary Medication (Simvastatin [Simvastatin]) 20 mg PO BEDTIME LYNNETTE Non-Formulary Medication (Vitamin E [Vitamin E]) 400 unit PO BEDTIME LYNNETTE Sodium Chloride (Saline Flush) 10 ml FLUSH ASDIRECTED PRN PRN Reason: Keep Vein Open *Q Meaningful Use (DIS) - VTE *Q VTE Criteria *Q: - Stroke *Q Stroke Criteria *Q: - AMI *Q AMI Criteria *Q:
[2017-04-13] MEDS ORDERED: METOPROLOL SUCCINATE PO SCH (21:00)
[2017-04-13] MEDS ORDERED: Non-Formulary Medication 1 Each (Simvastatin [Simvastatin] 20 MG) PO SCH (21:00)
[2017-04-13] MEDS ORDERED: Non-Formulary Medication 1 Each (Vitamin E [Vitamin E] 400 UNIT) PO SCH (21:00)
== END 2017-04-13 17:15 | disposition home or self-care (01) ==
LOC: FB.ED 02:19 → FB.MS 04:22
PROVIDERS: ADMIT Family Medicine; ATTEND Family Medicine
DX: G45.9 Transient cerebral ischemic attack, unspecified (principal); Z51.5 Encounter for palliative care; E78.00 Pure hypercholesterolemia, unspecified; J45.909 Unspecified asthma, uncomplicated; G47.30 Sleep apnea, unspecified; K21.9 Gastro-esophageal reflux disease without esophagitis; F41.9 Anxiety disorder, unspecified; E03.9 Hypothyroidism, unspecified; E66.9 Obesity, unspecified; Z79.82 Long term (current) use of aspirin; Z79.899 Other long term (current) drug therapy; Z88.0 Allergy status to penicillin; Z88.2 Allergy status to sulfonamides; Z68.30 Body mass index [BMI] 30.0-30.9, adult; Z95.5 Presence of coronary angioplasty implant and graft; Z90.49 Acquired absence of other specified parts of digestive tract; Z98.84 Bariatric surgery status
CPT/HCPCS: 36415; 70450; 72125; 80053; 83880; 84484; 85025; 85610; 93005; 93880; 99285; A9270; G0378; J7040; 93010; 99236

== ENCOUNTER 2017-09-01 10:59 | Emergency (ER) | payer MEDICARE, BC ==
[2017-09-01 11:24] VITALS: BP 123/62
[2017-09-01] MEDS ORDERED: Meclizine 25 MG Tab PO ONE (11:41)
--- NOTE | 2017-09-01 11:46 | EDM.PDOC ---
ED HPI GENERAL MEDICAL PROBLEM - General Chief Complaint: General Stated Complaint: FEEL CRAMPY NAUSEOUS HEADACHE [id number] Time Seen by Provider: 09/01/17 11:00 Source of Information: Reports: Patient History Limitations: Reports: No Limitations - History of Present Illness INITIAL COMMENTS - FREE TEXT/NARRATIVE: 67 y.o.w.m with a h/o HTN came to the ed due to H/A ant ghanshyam and dizzy when he get up from a laying to a sitting or form a sitting to a standing position fast. Pts pulse is usually in the 50s. No trauma, no N/V/D or any other acute medical issues. Pt was seen initially at the urgent care clinic. BP 123/62 Pulse 51 Temp 98.1 O2 sat 98% on RA Onset Date: 08/27/17 Onset Time: 07:00 Duration: Day(s):, Getting Worse, Intermittent Location: Reports: Head, Generalized Quality: Reports: Ache, Dull, Pressure Severity: Mild Improves with: Reports: Rest Worsens with: Reports: Movement Context: Reports: Other Associated Symptoms: Reports: No Other Symptoms head, back of the neck, throat and mid abdomen Pain Score (Numeric/FACES): 5 - Related Data Allergies Allergy/AdvReac Type Severity Reaction Status Date / Time Penicillins Allergy Seizure Verified 09/01/17 11:21 Sulfa (Sulfonamide Allergy Rash Verified 09/01/17 11:21 Antibiotics) Home Meds: Home Meds Escitalopram Oxalate 30 mg PO DAILY 03/07/13 [History] Levothyroxine Sodium 112 mcg PO DAILY 03/07/13 [History] Simvastatin 20 mg PO BEDTIME 06/11/13 [History] Metoprolol Succinate 1 tab PO BEDTIME 10/28/15 [History] Calcium Carbonate/Vitamin D3 [Caltrate 600 Plus D3 Tablet] 2 each PO BID [History] Multivitamin [Multi-Day Vitamins] 2 cap PO BID 08/16/16 [History] Vitamin E 400 unit PO DAILY 04/13/17 [History] Aspirin 81 mg PO BEDTIME 09/01/17 [History] Past Medical History HEENT History: Reports: Impaired Vision Cardiovascular History: Reports: Afib, Arrhythmia, Blood Clots/VTE/DVT, High Cholesterol, Hypertension, Stents Other Cardiovascular History: hx a fib, had ablation, had 1 stent. Respiratory History: Reports: Asthma, Sleep Apnea Gastrointestinal History: Reports: GERD Musculoskeletal History: Reports: Other (See Below) Other Musculoskeletal History: Fracture of right knee with steel and screw placed. 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 Fx or 3 ribs posterior left side. Fx of 3 ribs anterior left side. Neurological History: Reports: Concussion, Vertigo Psychiatric History: Reports: Anxiety, Depression, Other (See Below) Other Psychiatric History: hx ETOH abuse Endocrine/Metabolic History: Reports: Hypothyroidism, Obesity/BMI 30+ Hematologic History: Reports: Anemia, Blood Transfusion(s), Transfusion Reaction - Infectious Disease History Infectious Disease History: Reports: Chicken Pox, Measles Other Infectious Disease History: hx osteomyelitis R hip. - Past Surgical History HEENT Surgical History: Reports: Oral Surgery, Tonsillectomy Cardiovascular Surgical History: Reports: Cardiac Ablation, Coronary Artery Stent, Other (See Below) Other Cardiovascular Surgeries/Procedures: afib GI Surgical History: Reports: Bariatric Procedure, Cholecystectomy, Hernia Repair/Other, Other (See Below) Other GI Surgeries/Procedures: stomach sleeve Neurological Surgical History: Reports: None Social & Family History - Family History Family Medical History: Noncontributory - Tobacco Use Smoking Status *Q: Never Smoker Years of Tobacco use: 10 Used Tobacco, but Quit: Yes Month/Year Tobacco Last Used: unknown Second Hand Smoke Exposure: No - Caffeine Use Caffeine Use: Reports: Coffee - Alcohol Use Days Per Week of Alcohol Use: 0 - Recreational Drug Use Recreational Drug Use: No ED ROS GENERAL - Review of Systems Review Of Systems: See Below Constitutional: Reports: No Symptoms HEENT: Reports: No Symptoms Respiratory: Reports: No Symptoms Cardiovascular: Reports: Lightheadedness (when getting up fast from a sitting to a standing position) Endocrine: Reports: No Symptoms GI/Abdominal: Reports: No Symptoms : Reports: No Symptoms Musculoskeletal: Reports: Neck Pain (chronic) Skin: Reports: Other (H/O cellulitis right lower leg) Neurological: Reports: No Symptoms Psychiatric: Reports: No Symptoms Hematologic/Lymphatic: Reports: No Symptoms Immunologic: Reports: No Symptoms ED EXAM, GENERAL - Physical Exam Exam: See Below Exam Limited By: No Limitations General Appearance: Alert, WD/WN, No Apparent Distress Eye Exam: Bilateral Eye: Normal Inspection Ears: Normal External Exam Ear Exam: Bilateral Ear: Auricle Normal Nose: Normal Inspection, Normal Mucosa Throat/Mouth: Normal Inspection, Normal Lips Head: Atraumatic, Normocephalic, Other (frontal head discomfort) Neck: Normal Inspection, Supple, Non-Tender, Full Range of Motion Respiratory/Chest: No Respiratory Distress, Lungs Clear, Normal Breath Sounds, No Accessory Muscle Use, Chest Non-Tender Cardiovascular: Normal Peripheral Pulses, Regular Rate, Rhythm, No Edema, No Gallop, No JVD, No Murmur, No Rub Peripheral Pulses: 1+: Radial (L) GI/Abdominal: Normal Bowel Sounds, Soft, Non-Tender, No Organomegaly, No Abnormal Bruit, No Mass (Male) Exam: No Hernia Rectal (Males) Exam: Deferred Back Exam: Normal Inspection, Full Range of Motion Extremities: Normal Inspection, Normal Range of Motion, Non-Tender, No Pedal Edema, Normal Capillary Refill Neurological: Alert, Oriented, CN II-XII Intact, Normal Cognition, Normal Gait, Normal Reflexes, No Motor/Sensory Deficits Psychiatric: Normal Affect, Normal Mood Skin Exam: Warm, Dry, Intact, Normal Color, No Rash Lymphatic: No Adenopathy Course - Vital Signs Text/Narrative:: 67 y.o.w.m with a h/o HTN came to the ed due to H/A ant ghanshyam and dizzy when he get up from a laying to a sitting or form a sitting to a standing position fast. Pts pulse is usually in the 50s. No trauma, no N/V/D or any other acute medical issues. Pt was seen initially at the urgent care clinic. BP 123/62 Pulse 51 Temp 98.1 O2 sat 98% on RA PE: 67 y.o.w.f came to the ed deu to dizziness with fast body movement and headache. vertigo (Nystagmus) Imaging: CT head: NAD Labs: WBC, H/H and electrolytes were nl BUN/CR was increased to 24.7 Orthostatics were neg as per clinic report Impression: Bradycardia (on Metoprolol), Vertigo, Dehydration Tx: Antivert, 1/2 does of Metoprorl was recommended Reexam: Improved. His BP was 106/67 and puls was 56 on D/C Plan: D/C with instructions Last Recorded V/S: Last Vital Signs Temp 36.7 C 09/01/17 11:00 Pulse 51 L 09/01/17 11:00 Resp 15 09/01/17 11:00 BP 123/62 04/28/18 11:00 Pulse Ox 98 09/01/17 11:00 - Orders/Labs/Meds Orders: Active Orders 24 hr Category Date Time Status Orthostatic Vital Signs [RC] ASDIRECTED Care 09/01/17 11:47 Active Head wo Cont [CT] Stat Exams 09/01/17 11:38 Taken UA W/MICROSCOPIC [URIN] Stat Lab 09/01/17 13:45 Ordered EKG 12 Lead [EK] Routine Ther 09/01/17 11:24 Ordered Labs: Laboratory Tests 09/01/17 09/01/17 09/01/17 Range/Units 11:46 11:46 11:46 WBC 5.5 (4.5-12.0) X10-3/uL RBC 4.22 L (4.30-5.75) x10(6)uL Hgb 13.3 (11.5-15.5) g/dL Hct 39.1 (30.0-51.3) % MCV 92.6 (80-96) fL MCH 31.5 (27.7-33.6) pg MCHC 34.0 (32.2-35.4) g/dL RDW 11.9 (11.5-15.5) % Plt Count 247 (125-369) X10(3)uL MPV 6.4 L (7.4-10.4) fL Neut % (Auto) 42.6 L (46-82) % Lymph % (Auto) 44.5 H (13-37) % [place] % (Auto) 8.8 (4-12) % Eos % (Auto) 3 (1.0-5.0) % Baso % (Auto) 1 (0-2) % Neut # (Auto) 2.3 (1.6-8.3) # Lymph # (Auto) 2.5 (0.6-5.0) # [place] # (Auto) 0.5 (0.0-1.3) # Eos # (Auto) 0.2 (0.0-0.8) # Baso # (Auto) 0.0 (0.0-0.2) # Sodium 139 (135-145) mmol/L Potassium 4.1 (3.5-5.3) mmol/L Chloride 103 (100-110) mmol/L Carbon Dioxide 29 (21-32) mmol/L BUN 17 (7-18) mg/dL Creatinine 0.8 (0.70-1.30) mg/dL Est Cr Clr Drug Dosing 89.98 mL/min Estimated GFR (MDRD) > 60 (>60) BUN/Creatinine Ratio 21.3 H (9-20) Glucose 91 (80-116) mg/dL Calcium 9.0 (8.6-10.2) mg/dL Creatine Kinase 108 (60-160) IU/L Troponin I < 0.017 L (<0.017-0.056) ng/mL NT-Pro-B Natriuret Pep 196 H (<=125) pg/mL Urine Color (YELLOW) Urine Appearance (CLEAR) Urine pH (5.0-6.5) Ur Specific [place] (1.010-1.025) Urine Protein (NEGATIVE) mg/dL Urine Glucose (UA) (NEGATIVE) mg/dL Urine Ketones (NEGATIVE) mg/dL Urine Occult Blood (NEGATIVE) Urine Nitrite (NEGATIVE) Urine Bilirubin (NEGATIVE) Urine Urobilinogen (NEGATIVE) mg/dL Ur Leukocyte Esterase (NEGATIVE) Urine RBC (0) Urine WBC (0) Ur Squamous Epith Cells (NS,R,O) Urine Bacteria (NS) Urine Mucus (NS) 09/01/17 Range/Units 13:45 WBC (4.5-12.0) X10-3/uL RBC (4.30-5.75) x10(6)uL Hgb (11.5-15.5) g/dL Hct (30.0-51.3) % MCV (80-96) fL MCH (27.7-33.6) pg MCHC (32.2-35.4) g/dL RDW (11.5-15.5) % Plt Count (125-369) X10(3)uL MPV (7.4-10.4) fL Neut % (Auto) (46-82) % Lymph % (Auto) (13-37) % [place] % (Auto) (4-12) % Eos % (Auto) (1.0-5.0) % Baso % (Auto) (0-2) % Neut # (Auto) (1.6-8.3) # Lymph # (Auto) (0.6-5.0) # [place] # (Auto) (0.0-1.3) # Eos # (Auto) (0.0-0.8) # Baso # (Auto) (0.0-0.2) # Sodium (135-145) mmol/L Potassium (3.5-5.3) mmol/L Chloride (100-110) mmol/L Carbon Dioxide (21-32) mmol/L BUN (7-18) mg/dL Creatinine (0.70-1.30) mg/dL Est Cr Clr Drug Dosing mL/min Estimated GFR (MDRD) (>60) BUN/Creatinine Ratio (9-20) Glucose (80-116) mg/dL Calcium (8.6-10.2) mg/dL Creatine Kinase (60-160) IU/L Troponin I (<0.017-0.056) ng/mL NT-Pro-B Natriuret Pep (<=125) pg/mL Urine Color Yellow (YELLOW) Urine Appearance Clear (CLEAR) Urine pH 5.0 (5.0-6.5) Ur Specific [place] 1.020 (1.010-1.025) Urine Protein Negative (NEGATIVE) mg/dL Urine Glucose (UA) Normal (NEGATIVE) mg/dL Urine Ketones Negative (NEGATIVE) mg/dL Urine Occult Blood Negative (NEGATIVE) Urine Nitrite Negative (NEGATIVE) Urine Bilirubin Negative (NEGATIVE) Urine Urobilinogen Normal (NEGATIVE) mg/dL Ur Leukocyte Esterase Negative (NEGATIVE) Urine RBC 0-5 (0) Urine WBC 0-5 (0) Ur Squamous Epith Cells Few H (NS,R,O) Urine Bacteria Few H (NS) Urine Mucus Few H (NS) Meds: Medications Discontinued Medications Generic Name Dose Route Start Last Admin Trade Name Freq PRN Reason Stop Dose Admin Meclizine HCl 50 mg 09/01/17 11:41 09/01/17 11:49 Antivert PO 09/01/17 11:42 50 mg ONETIME ONE Administration Departure - Departure Time of Disposition: 14:19 Disposition: Home, Self-Care 01 Condition: Good Clinical Impression: Dizziness, nonspecific, Bradycardia on ECG - Discharge Information Instructions: Meclizine tablets or capsules, Bradycardia, Adult, Dizziness, [id number] Referrals: Marlon Hollingsworth MD [Primary Care Provider] - Forms: ED Department Discharge Additional Instructions: Please take only 1/2 dose of metoprolol tonight and follow up with your PMD, come back if your symptoms worsen acutely - My Orders Last 24 Hours: My Active Orders 09/01/17 11:24 EKG 12 Lead [EK] Routine 09/01/17 11:38 Head wo Cont [CT] Stat 09/01/17 11:47 Orthostatic Vital Signs [RC] ASDIRECTED 09/01/17 13:45 UA W/MICROSCOPIC [URIN] Stat - Assessment/Plan Last 24 Hours: My Active Orders 09/01/17 11:24 EKG 12 Lead [EK] Routine 09/01/17 11:38 Head wo Cont [CT] Stat 09/01/17 11:47 Orthostatic Vital Signs [RC] ASDIRECTED 09/01/17 13:45 UA W/MICROSCOPIC [URIN] Stat
== END 2017-09-01 14:45 | disposition home or self-care (01) ==
LOC: FB.ED 10:59
DX: R00.1 Bradycardia, unspecified (principal); E86.0 Dehydration; I48.91 Unspecified atrial fibrillation; I10 Essential (primary) hypertension; E78.00 Pure hypercholesterolemia, unspecified; E03.9 Hypothyroidism, unspecified; Z88.0 Allergy status to penicillin; Z88.2 Allergy status to sulfonamides; Z79.899 Other long term (current) drug therapy
CPT/HCPCS: 36415; 70450; 80048; 81001; 82550; 83880; 84484; 85025; 93005; 99284; A9270

== ENCOUNTER 2018-01-14 06:24 | Day surgery (SDC) | payer MEDICARE, BC ==
[2018-01-14] MEDS ORDERED: Lactated Ringers 1,000 ML IV SCH (06:45)
[2018-01-14] MEDS ORDERED: Lidocaine 2% 100 MG/5 ML Syringe IVPUSH ONE (07:45)
[2018-01-14] MEDS ORDERED: Propofol 200 MG/20 ML SDV IV ONE (07:45)
[2018-01-14] MEDS ORDERED: Ondansetron 4 MG/2 ML SDV IVPUSH ONE (07:45)
--- NOTE | 2018-01-14 08:34 | PCM.OPNOTE ---
- General Post-Op/Procedure Note Date of Surgery/Procedure: 01/14/18 Operative Procedure(s): c scope with bx Findings: colon polyps ascending, transverse, descending. sigmoid diverticulosis Pre Op Diagnosis: hx of colon polyps Post-Op Diagnosis: colon polyps ascending, transverse, descending. sigmoid diverticulosis Anesthesia Technique: MAC Primary Surgeon: Timbo Morales Anesthesia Provider: Jono Saucedo Pathology: colon polyps ascending, transverse, descending. Complications: None Condition: Good Free Text/Narrative:: see dictation
[2018-01-14 09:48] VITALS: BP 118/58
--- NOTE | 2018-01-14 11:09 | PREOP ---
ADMISSION DATE: 01/14/2018 CHIEF COMPLAINT: History of colon polyps. HISTORY OF PRESENT ILLNESS: This 67-year-old white male due for followup colonoscopy and last one demonstrated adenomatous polyps of the colon. He is currently without complaints. PAST MEDICAL HISTORY: Significant for anxiety, arthritis, asthma, history of atrial fibrillation with ablation, cataract, chronic venous stasis dermatitis of the lower extremities, depression, diabetes with peripheral vascular disease, glaucoma, histoplasmosis, hyperlipidemia, hypertension, hypothyroidism, morbid obesity, obstructive sleep apnea, and posterior vitreous detachment. PAST SURGICAL HISTORY: Significant for laparoscopic cholecystectomy, coronary artery angioplasty, hernia repair, hydrocele repair, right tibia, laparoscopic sleeve gastrectomy, tonsillectomy. MEDICATIONS:: Include the following; 1. Lexapro 30 mg daily. 2. Levothyroxine 112 mcg daily. 3. Toprol 50 mg SR daily. 4. Zocor 20 mg daily. 5. Calcium. 6. Vitamin D. 7. Vitamin E. 8. Bariatric Advantage Multivitamin. 9. Viagra 100 mg on a p.r.n. basis. ALLERGIES: He is allergic to penicillin and sulfa. FAMILY HISTORY: Significant for heart disease and glaucoma. He is . He stopped smoking in 2001. Does not drink. REVIEW OF SYSTEMS: HEENT, constitutional, respiratory, cardiovascular, gastrointestinal are all negative. PHYSICAL EXAMINATION: VITAL SIGNS: Stable. He is afebrile. HEENT: Grossly within normal limits. LUNGS: Clear to auscultation. HEART: Regular rate and rhythm. ABDOMEN: Soft, nontender. ASSESSMENT: Due for a followup colonoscopy due to history of adenomatous colon polyps. PLAN: C-scope procedure and risks explained to the patient to include bleeding, perforation, and infection. The patient expressed understanding and asked us to proceed. /[id number] /MODL
--- NOTE | 2018-01-14 16:19 | OR ---
DATE OF OPERATION: 01/14/2018 SURGEON: Timbo Morales MD PROCEDURES PERFORMED: Colonoscopy with hot loop and cold forceps and cold loop biopsy. PREOPERATIVE DIAGNOSIS: Personal history of colon polyps. POSTOPERATIVE DIAGNOSES: Polyp of the ascending colon x2, transverse colon polyp in descending colon. INDICATIONS FOR PROCEDURE: This is a 67-year-old white male who presents for a followup colonoscopy. He has a personal history of colon polyps. He was offered and accepted same. DESCRIPTION OF OPERATION: After an excellent IV sedation was administered, digital rectal exam was performed. No marked abnormality was noted. Flexible colonoscope was inserted and advanced to the cecum without difficulty. The prep was excellent. The following findings were noted. Ascending colon, 1.5 cm sessile polyp was encountered, biopsied with a hot loop snare, and retrieved. Just distal to this, another 5 mm polyp, biopsied with cold forceps biopsies and sent for permanent. The base did have some bleeding, which was fulgurated with the tip of the biopsy loop snare. Transverse colon had a flat sessile polyp, which was also biopsied with cold forceps. Descending colon, a small polypoid lesion, biopsied with cold loop. Sigmoid was unremarkable. Rectum and anus, unremarkable. Colon was deflated. The scope was removed. The patient tolerated the procedure well and was taken to recovery in good condition. /[id number] /MARCO ANTONIOL
== END 2018-01-14 09:50 | disposition home or self-care (01) ==
LOC: FB.SDS 06:24
PROVIDERS: ATTEND Surgery
DX: Z12.11 Encounter for screening for malignant neoplasm of colon (principal); D12.2 Benign neoplasm of ascending colon; D12.3 Benign neoplasm of transverse colon; D12.4 Benign neoplasm of descending colon; M19.90 Unspecified osteoarthritis, unspecified site; I10 Essential (primary) hypertension; J45.909 Unspecified asthma, uncomplicated; E11.51 Type 2 diabetes mellitus with diabetic peripheral angiopathy without gangrene; E78.5 Hyperlipidemia, unspecified; E03.9 Hypothyroidism, unspecified; E66.01 Morbid (severe) obesity due to excess calories; Z68.38 Body mass index [BMI] 38.0-38.9, adult; G47.33 Obstructive sleep apnea (adult) (pediatric); Z99.89 Dependence on other enabling machines and devices; F41.9 Anxiety disorder, unspecified; Z79.899 Other long term (current) drug therapy; Z88.0 Allergy status to penicillin; Z88.2 Allergy status to sulfonamides; Z86.010 Personal history of colon polyps; Z87.891 Personal history of nicotine dependence
CPT/HCPCS: 00812; 45380; 45385; 88305; J2001; J2405; J2704; J7120

== ENCOUNTER 2018-01-17 23:18 | Emergency (ER) | payer MEDICARE, BC ==
--- NOTE | 2018-01-17 23:45 | EDM.PDOC ---
ED HPI GENERAL MEDICAL PROBLEM - General Stated Complaint: LEFT SHOULDER PAIN Time Seen by Provider: 01/17/18 23:30 - History of Present Illness INITIAL COMMENTS - FREE TEXT/NARRATIVE: Mr. Rodolfo Valle comes in because of injury to the left shoulder. He was fishing when he accidentally fell his note and supported himself with the left arm. He had minimal pain and feels like he has no power on the arm.He denies any head injury. - Related Data Allergies Allergy/AdvReac Type Severity Reaction Status Date / Time Penicillins Allergy Seizure Verified 01/17/18 23:29 Sulfa (Sulfonamide Allergy Hives Verified 01/17/18 23:29 Antibiotics) Home Meds: Home Meds Escitalopram Oxalate 30 mg PO DAILY 03/07/13 [History] Levothyroxine Sodium 112 mcg PO DAILY 03/07/13 [History] Simvastatin 20 mg PO BEDTIME 06/11/13 [History] Calcium Carbonate/Vitamin D3 [Caltrate 600 Plus D3 Tablet] 1 each PO BID [History] Multivitamin [Multi-Day Vitamins] 1 cap PO BID 08/16/16 [History] Sildenafil Citrate [Sildenafil] 100 mg PO ASDIRECTED PRN 10/02/17 [History] Vitamin E 1,000 unit PO DAILY 01/11/18 [History] Past Medical History HEENT History: Reports: Cataract, Glaucoma, Impaired Vision, Other (See Below) Other HEENT History: DRY EYES, POSTERIOR VITREOUS DETACHMENT Cardiovascular History: Reports: Afib, Arrhythmia, Blood Clots/VTE/DVT, CAD, High Cholesterol, Hypertension, Stents, Other (See Below) Other Cardiovascular History: hx a fib, had ablation, had 1 stent. ASHD, DIABETIC PERIPHERAL VASCULAR DISEASE Respiratory History: Reports: Asthma, Pneumonia, Recurrent, Sleep Apnea, Other ( See Below) Other Respiratory History: HISTOPLASMOSIS PNEUMONIA Gastrointestinal History: Reports: Colon Polyp, GERD Genitourinary History: Reports: None, Urinary Incontinence Musculoskeletal History: Reports: Arthritis, Osteoarthritis, Other (See Below) Other Musculoskeletal History: Fracture of right knee with steel and screw placed. 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 Fx or 3 ribs posterior left side. Fx of 3 ribs anterior left side. Neurological History: Reports: Concussion, Vertigo Psychiatric History: Reports: Anxiety, Depression, Other (See Below) Other Psychiatric History: hx ETOH abuse, DELUSIONAL DISORDER Endocrine/Metabolic History: Reports: Hypothyroidism, Obesity/BMI 30+ Hematologic History: Reports: Anemia, Blood Transfusion(s), Transfusion Reaction Immunologic History: Reports: None Oncologic (Cancer) History: Reports: None Dermatologic History: Reports: Cellulitis, Venous Stasis Dermatitis - Infectious Disease History Infectious Disease History: Reports: Chicken Pox, Measles, Mumps Other Infectious Disease History: hx osteomyelitis R hip. - Past Surgical History Head Surgeries/Procedures: Reports: None HEENT Surgical History: Reports: Adenoidectomy, Oral Surgery, Tonsillectomy Cardiovascular Surgical History: Reports: Cardiac Ablation, Coronary Artery Stent, Other (See Below) Other Cardiovascular Surgeries/Procedures: afib, CORONARY ANGIOPLASTY Respiratory Surgical History: Reports: None GI Surgical History: Reports: Bariatric Procedure, Cholecystectomy, Hernia Repair/Other, Other (See Below) Other GI Surgeries/Procedures: STOMACH SLEEVE Male Surgical History: Reports: Other (See Below) Other Male Surgeries/Procedures: LEFT HYDROCELE SPERMATOCELE Endocrine Surgical History: Reports: None Neurological Surgical History: Reports: None Musculoskeletal Surgical History: Reports: Hip Replacement, ORIF Other Musculoskeletal Surgeries/Procedures:: R hip replacement & fusion. R knee pinning. Fracture of right knee with steel and screw placed. RIGHT TIBIA REPAIR Oncologic Surgical History: Reports: None Social & Family History - Family History Family Medical History: Noncontributory GI: Reports: None - Caffeine Use Caffeine Use: Reports: Coffee, Soda Review of Systems - Review of Systems Review Of Systems: ROS reveals no pertinent complaints other than HPI. ED EXAM, GENERAL - Physical Exam Exam: See Below Free Text/Narrative:: No obvious deformity of the shoulder noted. He has full range of motion. A mildly positive impingement sign. Peripheral pulses are present and strong. Exam Limited By: No Limitations General Appearance: Alert, WD/WN Ears: Normal External Exam Nose: Normal Inspection Respiratory/Chest: No Respiratory Distress Departure - Departure Time of Disposition: 23:44 Disposition: Home, Self-Care 01 Clinical Impression: Injury of shoulder region - Discharge Information Referrals: Marlon Hollingsworth MD [Primary Care Provider] - - Problem List & Annotations (1) Injury of shoulder region SNOMED Code(s): 928384522 Code(s): S49.90XA - UNSP INJURY OF SHOULDER AND UPPER ARM, UNSP ARM, INIT ENCNTR Status: Acute Current Visit: Yes - Problem List Review Problem List Initiated/Reviewed/Updated: Yes - Assessment/Plan Plan: Using [place] Rules,I recommend no imaging. Reassured patient and sent home .Follow up PRN
[2018-01-18 02:57] VITALS: BP 142/82
== END 2018-01-17 23:48 | disposition home or self-care (01) ==
LOC: FB.ED 23:18
DX: S49.92XA Unspecified injury of left shoulder and upper arm, initial encounter (principal); I48.91 Unspecified atrial fibrillation; I25.10 Atherosclerotic heart disease of native coronary artery without angina pectoris; E78.00 Pure hypercholesterolemia, unspecified; I10 Essential (primary) hypertension; Z88.0 Allergy status to penicillin; Z88.2 Allergy status to sulfonamides; Z79.899 Other long term (current) drug therapy; Z87.891 Personal history of nicotine dependence; W18.30XA Fall on same level, unspecified, initial encounter
CPT/HCPCS: 99283

== ENCOUNTER 2018-01-28 18:12 | Emergency (ER) | payer MEDICARE, BC ==
[2018-01-28] MEDS ORDERED: Sodium Chloride 0.9% 10 ML Syringe FLUSH PRN (18:25)
[2018-01-28] MEDS ORDERED: Aspirin 81 MG Tab.Chew PO ONE (18:39)
[2018-01-28] MEDS ORDERED: Morphine 2 MG/ML Syringe IVPUSH ONE (18:43)
--- NOTE | 2018-01-28 18:46 | EDM.PDOC ---
ED HPI GENERAL MEDICAL PROBLEM - General Chief Complaint: Chest Pain Stated Complaint: CHEST PRESSURE Time Seen by Provider: 01/28/18 18:40 Source of Information: Reports: Patient History Limitations: Reports: No Limitations - History of Present Illness INITIAL COMMENTS - FREE TEXT/NARRATIVE: Complains of right sided chest pressure since 0 last night radiating to right jaw associated with generalized weakness and chills. History of coronary stent 06/2012 @[place]. Noncompliant with medications, takes aspirin sporadically. Denies SOB. Onset Date: 01/27/18 Onset Time: 19:00 Location: Reports: Chest Quality: Reports: Pressure Severity: Mild Associated Symptoms: Reports: Weakness, Other (chills) right side of the chest Pain Score (Numeric/FACES): 5 - Related Data Allergies Allergy/AdvReac Type Severity Reaction Status Date / Time Penicillins Allergy Seizure Verified 01/28/18 18:40 Sulfa (Sulfonamide Allergy Hives Verified 01/28/18 18:40 Antibiotics) Home Meds: Home Meds Levothyroxine Sodium 112 mcg PO DAILY 03/07/13 [History] Calcium Carbonate/Vitamin D3 [Caltrate 600 Plus D3 Tablet] 1 each PO BID [History] Multivitamin [Multi-Day Vitamins] 1 cap PO BID 08/16/16 [History] buPROPion [buPROPion XL] 150 mg PO BEDTIME 01/28/18 [History] Past Medical History HEENT History: Reports: Cataract, Glaucoma, Impaired Vision, Other (See Below) Other HEENT History: DRY EYES, POSTERIOR VITREOUS DETACHMENT Cardiovascular History: Reports: Afib, Arrhythmia, Blood Clots/VTE/DVT, CAD, High Cholesterol, Hypertension, Stents, Other (See Below) Other Cardiovascular History: hx a fib, had ablation, had 1 stent. ASHD, DIABETIC PERIPHERAL VASCULAR DISEASE Respiratory History: Reports: Asthma, Pneumonia, Recurrent, Sleep Apnea, Other ( See Below) Other Respiratory History: HISTOPLASMOSIS PNEUMONIA Gastrointestinal History: Reports: Colon Polyp, GERD Genitourinary History: Reports: None, Urinary Incontinence Musculoskeletal History: Reports: Arthritis, Osteoarthritis, Other (See Below) Other Musculoskeletal History: Fracture of right knee with steel and screw placed. 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 Fx or 3 ribs posterior left side. Fx of 3 ribs anterior left side. Neurological History: Reports: Concussion, Vertigo Psychiatric History: Reports: Anxiety, Depression, Other (See Below) Other Psychiatric History: hx ETOH abuse, DELUSIONAL DISORDER Endocrine/Metabolic History: Reports: Hypothyroidism, Obesity/BMI 30+ Hematologic History: Reports: Anemia, Blood Transfusion(s), Transfusion Reaction Immunologic History: Reports: None Oncologic (Cancer) History: Reports: None Dermatologic History: Reports: Cellulitis, Venous Stasis Dermatitis - Infectious Disease History Infectious Disease History: Reports: Chicken Pox, Measles, Mumps Other Infectious Disease History: hx osteomyelitis R hip. - Past Surgical History Head Surgeries/Procedures: Reports: None HEENT Surgical History: Reports: Adenoidectomy, Oral Surgery, Tonsillectomy Cardiovascular Surgical History: Reports: Cardiac Ablation, Coronary Artery Stent, Other (See Below) Other Cardiovascular Surgeries/Procedures: afib, CORONARY ANGIOPLASTY Respiratory Surgical History: Reports: None GI Surgical History: Reports: Bariatric Procedure, Cholecystectomy, Hernia Repair/Other, Other (See Below) Other GI Surgeries/Procedures: STOMACH SLEEVE Male Surgical History: Reports: Other (See Below) Other Male Surgeries/Procedures: LEFT HYDROCELE SPERMATOCELE Endocrine Surgical History: Reports: None Neurological Surgical History: Reports: None Musculoskeletal Surgical History: Reports: Hip Replacement, ORIF Other Musculoskeletal Surgeries/Procedures:: R hip replacement & fusion. R knee pinning. Fracture of right knee with steel and screw placed. RIGHT TIBIA REPAIR Oncologic Surgical History: Reports: None Social & Family History - Family History Family Medical History: Noncontributory GI: Reports: None - Tobacco Use Smoking Status *Q: Former Smoker - Caffeine Use Caffeine Use: Reports: Coffee, Soda - Alcohol Use Alcohol Use History: No ED ROS GENERAL - Review of Systems Review Of Systems: ROS reveals no pertinent complaints other than HPI. ED EXAM, GENERAL - Physical Exam Exam: See Below Exam Limited By: No Limitations General Appearance: Alert, WD/WN, No Apparent Distress Ears: Normal External Exam Nose: Normal Inspection Throat/Mouth: No Airway Compromise Head: Atraumatic, Normocephalic Neck: Full Range of Motion Respiratory/Chest: No Respiratory Distress, Lungs Clear, Normal Breath Sounds Cardiovascular: Regular Rate, Rhythm, No Murmur GI/Abdominal: Normal Bowel Sounds, Soft, Non-Tender, No Distention Back Exam: Full Range of Motion Extremities: Normal Range of Motion Neurological: Alert, Oriented, Normal Cognition, No Motor/Sensory Deficits Psychiatric: Normal Affect, Normal Mood Skin Exam: Warm, Dry, Intact EKG INTERPRETATION EKG Date: 01/28/18 Time: 18:20 Rhythm: NSR Rate (Beats/Min): 75 [place]: Normal P-Wave: Present QRS: LBBB ST-T: Depressed Comparison: Change From Previous EKG (04/13/17) Course - Vital Signs Last Recorded V/S: Last Vital Signs Temp 36.3 C 01/28/18 18:20 Pulse 70 01/28/18 19:00 Resp 13 01/28/18 19:00 BP 111/69 01/28/18 19:00 Pulse Ox 96 01/28/18 19:00 - Orders/Labs/Meds Orders: Active Orders 24 hr Category Date Time Status EKG Documentation Completion [RC] ASDIRECTED Care 01/28/18 18:23 Active CXR [Chest 1V Frontal] [CR] Stat Exams 01/28/18 18:24 Taken CULTURE BLOOD [BC] Urgent Lab 01/28/18 18:39 Received CULTURE BLOOD [BC] Urgent Lab 01/28/18 18:44 Received PTT,PARTIAL THROMBOPLSTIN TIME [COAG] Stat Lab 01/28/18 18:44 Received Heparin Sodium/0.45% NaCl [Heparin 25,000 Units in 1/2 Med 01/28/18 19:45 Ordered NS 500 ML] 500 ml IV ASDIRECTED Sodium Chloride 0.9% [Saline Flush] Med 01/28/18 18:25 Active 10 ml FLUSH ASDIRECTED PRN Blood Culture x2 Reflex Set [OM.PC] Urgent Oth 01/28/18 18:27 Ordered Saline Lock Insert [OM.PC] Routine Oth 01/28/18 18:25 Ordered EKG 12 Lead [EK] Stat Ther 01/28/18 18:23 Ordered Medication Orders Heparin Sodium/Sodium Chloride (Heparin 25,000 Units In 1/2 Ns 500 Ml) 500 mls @ 20 mls/hr IV ASDIRECTED L[place]; Protocol Sodium Chloride (Saline Flush) 10 ml FLUSH ASDIRECTED PRN PRN Reason: Keep Vein Open Labs: Laboratory Tests 01/28/18 01/28/18 01/28/18 Range/Units 18:44 18:44 18:44 WBC 5.3 (4.5-12.0) X10-3/uL RBC 4.09 L (4.30-5.75) x10(6)uL Hgb 13.0 (11.5-15.5) g/dL Hct 38.0 (30.0-51.3) % MCV 92.9 (80-96) fL MCH 31.8 (27.7-33.6) pg MCHC 34.2 (32.2-35.4) g/dL RDW 12.4 (11.5-15.5) % Plt Count 320 (125-369) X10(3)uL MPV 6.8 L (7.4-10.4) fL Neut % (Auto) 52.8 (46-82) % Lymph % (Auto) 36.8 (13-37) % [place] % (Auto) 7.8 (4-12) % Eos % (Auto) 2 (1.0-5.0) % Baso % (Auto) 1 (0-2) % Neut # (Auto) 2.8 (1.6-8.3) # Lymph # (Auto) 2.0 (0.6-5.0) # [place] # (Auto) 0.4 (0.0-1.3) # Eos # (Auto) 0.1 (0.0-0.8) # Baso # (Auto) 0.0 (0.0-0.2) # PT (8.7-11.1) INR (0.89-1.13) D-Dimer, Quantitative (0.0-0.59) mg/LFEU Sodium 138 (135-145) mmol/L Potassium 4.1 (3.5-5.3) mmol/L Chloride 102 (100-110) mmol/L Carbon Dioxide 30 (21-32) mmol/L BUN 16 (7-18) mg/dL Creatinine 0.9 (0.70-1.30) mg/dL Est Cr Clr Drug Dosing TNP Estimated GFR (MDRD) > 60 (>60) BUN/Creatinine Ratio 17.8 (9-20) Glucose 92 (80-116) mg/dL Lactic Acid (0.4-2.2) mmol/L Calcium 9.2 (8.6-10.2) mg/dL Total Bilirubin 0.3 (0.1-1.3) mg/dL AST 25 D (5-25) IU/L ALT 27 (12-36) U/L Alkaline Phosphatase 62 (56-112) IU/L Troponin I 0.307 H* (<0.017-0.056) ng/mL Total Protein 7.1 (6.0-8.0) g/dL Albumin 3.2 (3.2-4.6) g/dL Globulin 3.9 g/dL Albumin/Globulin Ratio 0.8 Urine Color (YELLOW) Urine Appearance (CLEAR) Urine pH (5.0-6.5) Ur Specific [place] (1.010-1.025) Urine Protein (NEGATIVE) mg/dL Urine Glucose (UA) (NEGATIVE) mg/dL Urine Ketones (NEGATIVE) mg/dL Urine Occult Blood (NEGATIVE) Urine Nitrite (NEGATIVE) Urine Bilirubin (NEGATIVE) Urine Urobilinogen (NEGATIVE) mg/dL Ur Leukocyte Esterase (NEGATIVE) Urine RBC (0) Urine WBC (0) Ur Squamous Epith Cells (NS,R,O) Urine Bacteria (NS) 01/28/18 01/28/18 01/28/18 Range/Units 18:44 18:44 18:49 WBC (4.5-12.0) X10-3/uL RBC (4.30-5.75) x10(6)uL Hgb (11.5-15.5) g/dL Hct (30.0-51.3) % MCV (80-96) fL MCH (27.7-33.6) pg MCHC (32.2-35.4) g/dL RDW (11.5-15.5) % Plt Count (125-369) X10(3)uL MPV (7.4-10.4) fL Neut % (Auto) (46-82) % Lymph % (Auto) (13-37) % [place] % (Auto) (4-12) % Eos % (Auto) (1.0-5.0) % Baso % (Auto) (0-2) % Neut # (Auto) (1.6-8.3) # Lymph # (Auto) (0.6-5.0) # [place] # (Auto) (0.0-1.3) # Eos # (Auto) (0.0-0.8) # Baso # (Auto) (0.0-0.2) # PT 10.2 (8.7-11.1) INR 1.05 (0.89-1.13) D-Dimer, Quantitative 0.52 (0.0-0.59) mg/LFEU Sodium (135-145) mmol/L Potassium (3.5-5.3) mmol/L Chloride (100-110) mmol/L Carbon Dioxide (21-32) mmol/L BUN (7-18) mg/dL Creatinine (0.70-1.30) mg/dL Est Cr Clr Drug Dosing Estimated GFR (MDRD) (>60) BUN/Creatinine Ratio (9-20) Glucose (80-116) mg/dL Lactic Acid 1.4 (0.4-2.2) mmol/L Calcium (8.6-10.2) mg/dL Total Bilirubin (0.1-1.3) mg/dL AST (5-25) IU/L ALT (12-36) U/L Alkaline Phosphatase (56-112) IU/L Troponin I (<0.017-0.056) ng/mL Total Protein (6.0-8.0) g/dL Albumin (3.2-4.6) g/dL Globulin g/dL Albumin/Globulin Ratio Urine Color Yellow (YELLOW) Urine Appearance Clear (CLEAR) Urine pH 7.0 H (5.0-6.5) Ur Specific [place] 1.015 (1.010-1.025) Urine Protein Negative (NEGATIVE) mg/dL Urine Glucose (UA) Normal (NEGATIVE) mg/dL Urine Ketones Negative (NEGATIVE) mg/dL Urine Occult Blood Negative (NEGATIVE) Urine Nitrite Negative (NEGATIVE) Urine Bilirubin Negative (NEGATIVE) Urine Urobilinogen Normal (NEGATIVE) mg/dL Ur Leukocyte Esterase Negative (NEGATIVE) Urine RBC 0-5 (0) Urine WBC 0-5 (0) Ur Squamous Epith Cells Rare (NS,R,O) Urine Bacteria Few H (NS) Meds: Medications Generic Name Dose Route Start Last Admin Trade Name Freq PRN Reason Stop Dose Admin Heparin Sodium/Sodium Chloride 500 mls @ 20 mls/hr 01/28/18 19:45 Heparin 25,000 Units In 1/2 Ns 500 Ml IV ASDIRECTED LYNNETTE Protocol Sodium Chloride 10 ml 01/28/18 18:25 Saline Flush FLUSH ASDIRECTED PRN Keep Vein Open Discontinued Medications Generic Name Dose Route Start Last Admin Trade Name Freq PRN Reason Stop Dose Admin Aspirin 324 mg 01/28/18 18:39 01/28/18 19:26 Aspirin PO 01/28/18 18:40 324 mg ONETIME ONE Administration Heparin Sodium (Porcine) 4,000 units 01/28/18 19:35 01/28/18 19:42 Heparin Sodium IVPUSH 01/28/18 19:36 4,000 units ONETIME ONE Administration Morphine Sulfate 2 mg 01/28/18 18:43 01/28/18 19:27 Morphine IVPUSH 01/28/18 18:44 Not Given ONETIME ONE - Radiology Interpretation Free Text/Narrative:: CXR: NAD - Re-Assessments/Exams Free Text/Narrative Re-Assessment/Exam: 01/28/18 19:45 Dr. Mejias (water and fire technician @ [facility]) reviewed the EKG and found no evidence for ST elevation. Dr. Infante accepts patient to [facility] ED per [place] [facility]. 01/28/18 19:48 Chest pain 0/10, patient refused Morphine. Departure - Departure Time of Disposition: 19:48 Disposition: DC/Tfer to Acute Hospital 02 Reason for Transfer *Q: Primary PCI Indicated Condition: Serious Clinical Impression: Non-STEMI (non-ST elevated myocardial infarction) Referrals: Marlon Hollingsworth MD [Primary Care Provider] - Forms: ED Department Discharge - My Orders Last 24 Hours: My Active Orders 01/28/18 18:23 EKG Documentation Completion [RC] ASDIRECTED EKG 12 Lead [EK] Stat 01/28/18 18:24 CXR [Chest 1V Frontal] [CR] Stat 01/28/18 18:25 Sodium Chloride 0.9% [Saline Flush] 10 ml FLUSH ASDIRECTED PRN Saline Lock Insert [OM.PC] Routine 01/28/18 18:27 Blood Culture x2 Reflex Set [OM.PC] Urgent 01/28/18 18:39 CULTURE BLOOD [BC] Urgent 01/28/18 18:44 CULTURE BLOOD [BC] Urgent PTT,PARTIAL THROMBOPLSTIN TIME [COAG] Stat 01/28/18 19:45 Heparin Sodium/0.45% NaCl [Heparin 25,000 Units in 1/2 NS 500 ML] 500 ml IV ASDIRECTED - Assessment/Plan Last 24 Hours: My Active Orders 01/28/18 18:23 EKG Documentation Completion [RC] ASDIRECTED EKG 12 Lead [EK] Stat 01/28/18 18:24 CXR [Chest 1V Frontal] [CR] Stat 01/28/18 18:25 Sodium Chloride 0.9% [Saline Flush] 10 ml FLUSH ASDIRECTED PRN Saline Lock Insert [OM.PC] Routine 01/28/18 18:27 Blood Culture x2 Reflex Set [OM.PC] Urgent 01/28/18 18:39 CULTURE BLOOD [BC] Urgent 01/28/18 18:44 CULTURE BLOOD [BC] Urgent PTT,PARTIAL THROMBOPLSTIN TIME [COAG] Stat 01/28/18 19:45 Heparin Sodium/0.45% NaCl [Heparin 25,000 Units in 1/2 NS 500 ML] 500 ml IV ASDIRECTED
[2018-01-28] MEDS ORDERED: Heparin Sodium 5,000 Units/ML Vial IVPUSH ONE (19:35)
[2018-01-28 19:40] VITALS: BP 111/69
[2018-01-28] MEDS ORDERED: Heparin Sodium/0.45% NaCl 500 ML IV SCH (19:45)
--- NOTE | 2018-01-29 15:17 | CR ---
INDICATION: Chest pain. CHEST: An AP upright portable view of the chest was obtained 01/28/2018 and compared with 09/20/2016 and 08/16/2016. There is an appearance suggesting exogenous obesity. The heart is emphasized by relatively poor inspiration and may be at the upper limits of normal in size or minimally enlarged. The aorta is tortuous with calcification in the arch. Overlying EKG leads are noted. An active infiltrate or effusion was not identified. There is somewhat prominent upper lung field pulmonary vasculature, raising question of a mild degree of CHF or early CHF. This should be correlated clinically. Density at the left costophrenic angle - heart border is most likely an unusual epicardial fat pad. IMPRESSION: Probable ASHD. Possibly mild or early CHF. MTDD
--- OUTSIDE RECORDS SUMMARY | 2018-01-31 08:27 | XMSREPORT | Summary of Care ---
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 Reason for Visit Reason Comments Chest Pain Arrives with [facility]. Pt was fishing yesterday when he began to experience tightness/ pressure in the chest. Pain subsided later in the night. Today pain returned to upper right chest. EKG with mild elevation per EMS. Positve trop. Transferred to [facility]. Received 324 ASA from previous facility. Hx ablation done December 2015. Auth/Cert Status Reason Specialty Diagnoses / Procedures Referred By Contact Referred To Contact Encounter Details Date Type Department Care Team Description 01/28/2018 - Hospital Encounter [facility], Emergency Department [address] [place] [address] [phone] NSTEMI (non-ST 01/30/[address] [place] [address] Mason Vasques MD elevated myocardial [address] Franc Hull MD infarction) [place] [address] Jim Kay MD [phone] Allergies Active Allergy Reactions Severity Noted Date Comments Penicillin Other (Specify in 12/15/2011 Convulsions (age 3, per Comments) pt's mother) Sulfa Drugs Hives (High), Rash High 12/15/2011 Allergy as a child per patient's mother. as of this encounter Medications Prescription Sig. Disp. Refills Start End Date Status Date levothyroxine 112 Take 1 tablet (112 90 tablet 3 Active mcg mcg) by mouth 1 8 tabletIndications: time per day Hypothyroidism due to acquired atrophy of thyroid aspirin 81 mg Take 1 tablet (81 30 tablet 0 Active enteric coated mg) by mouth 1 8 tabletIndications: time per day Coronary artery disease involving [place] coronary artery of [place] heart without angina pectoris buPROPion Take 1 tablet (150 90 tablet 1 Active (WELLBUTRIN XL) 150 mg) by mouth 1 8 mg tablet (24 time per day hr)Indications: Other depression latanoprost Place 1 drop into 1 Bottle 3 Active (XALATAN) 0.005 % both eyes every 8 ophthalmic night at bedtime solutionIndications : Primary open angle glaucoma (POAG) of both eyes, mild stage acetaminophen Take 500-1,000 mg Active (TYLENOL) 500 mg by mouth every 6 tablet hours as needed for mild pain, fever > (indicate temp) or headache DO NOT EXCEED 3000 mg of acetaminophen containing products in any 24 hour period. calcium Take 2 tablets by Active citrate-vitamin D mouth 2 times a (CITRACAL + VIT D) day 315 mg-250 unit tablet HYDROcodone-acetami Take 1 tablet by Active nophen (NORCO) mouth every 6 8 5-325 mg tablet hours as needed for moderate pain atorvaSTATin Take 1 tablet (40 90 tablet 4 02/05/20 Active (LIPITOR) 40 mg mg) by mouth every 8 19 tabletIndications: night at bedtime Dilated cardiomyopathy, Chronic systolic CHF (congestive heart failure), NSTEMI (non-ST elevated myocardial infarction) carVEDilol (COREG) Take 1 tablet 180 tablet 4 02/05/20 Active 3.125 mg (3.125 mg) by 8 19 tabletIndications: mouth 2 times a Dilated day with meals cardiomyopathy, Chronic systolic CHF (congestive heart failure), NSTEMI (non-ST elevated myocardial infarction) nitroglycerin Dissolve 1 tablet 15 tablet 0 02/05/20 Active (NITROSTAT) 0.4 mg (0.4 mg) under the 8 19 sublingual tongue Every 5 tabletIndications: minutes as needed Dilated for chest pain May cardiomyopathy, repeat every 5 Chronic systolic minutes for a CHF (congestive total of 3 doses. heart failure), NSTEMI (non-ST elevated myocardial infarction) sildenafil (VIAGRA) Take 1 tablet (100 6 tablet 1 Active 100 MG mg) by mouth 1 8 tabletIndications: time a day as Drug-induced needed for other erectile (Specify) (as dysfunction needed) Take 1 hour prior to sexual activity. ticagrelor Take 1 tablet (90 60 tablet 11 Active (BRILINTA) 90 mg mg) by mouth 2 8 tabletIndications: times a day Dilated cardiomyopathy, Chronic systolic CHF (congestive heart failure), NSTEMI (non-ST elevated myocardial infarction) furosemide (LASIX) Take 1 tablet (20 30 tablet 0 03/02/20 Active 20 mg mg) by mouth 1 8 18 tabletIndications: time per day Dilated cardiomyopathy, Chronic systolic CHF (congestive heart failure), NSTEMI (non-ST elevated myocardial infarction) sildenafil (VIAGRA) Take 1 tablet by 6 tablet 1 01/31/20 Suspended 100 MG mouth 1 time a day 5 18 tabletIndications: as needed for Drug-induced other (Specify) erectile (as needed). Take dysfunction 1 hour prior to sexual activity. bariatric advantage Take 1 tablet by 0 01/31/20 Suspended advanced multi EA mouth 2 times a 7 18 chewable day multivitaminIndicat ions: Post-operative state vitamin E 1000 Take 1,000 Units 01/29/20 Discontinued UNITS capsule by mouth 1 time 18 per day simvastatin (ZOCOR) Take 1 tablet (20 90 tablet 0 01/31/20 Suspended 20 mg mg) by mouth every 8 18 tabletIndications: night at bedtime Mixed hyperlipidemia levoFLOXacin Take 1 tablet (500 10 tablet 0 01/31/20 Suspended (LEVAQUIN) 500 mg mg) by mouth 1 8 18 tabletIndications: time per day Lower abdominal pain, S/P colonoscopy with polypectomy metroNIDAZOLE Take 1 tablet (500 30 tablet 0 01/31/20 Suspended (FLAGYL) 500 mg mg) by mouth 3 8 18 tabletIndications: times a day Lower abdominal pain, S/P colonoscopy with polypectomy HYDROcodone-acetami Take 1-2 tablets 10 tablet 0 01/29/20 Discontinued nophen (NORCO) by mouth every 4 8 18 5-325 mg to 6 hours as tabletIndications: needed for Lower abdominal moderate pain pain, S/P colonoscopy with polypectomy as of this encounter Active Problems Problem Noted Date NSTEMI (non-ST elevated myocardial infarction) 01/29/2018 Delusional disorder, persecutory type 04/27/2017 Myopia 11/20/2016 Regular astigmatism of both eyes 11/20/2016 Presbyopia 11/20/2016 ASHD (arteriosclerotic heart disease) 10/30/2016 Overview: 2013 Stent to RCA Morbid obesity 05/25/2016 Primary open angle glaucoma of both eyes 01/22/2016 Cataracts, bilateral - Both 01/22/2016 Posterior vitreous detachment 01/22/2016 Anxiety 09/21/2015 CRAIG on CPAP 04/07/2015 Overview: CPAP 14 cmH2O, EPR 3/AHI 38.3 Maladaptive health behaviors affecting medical condition 02/23/2015 Chronic venous stasis dermatitis of both lower extremities 12/15/2014 Open leg wound 12/07/2014 Cellulitis of leg, right 12/07/2014 Overview: improving Morbid obesity with BMI of 45.0-49.9, adult 12/07/2014 Overview: 12/21/2014-BMI 47.65 Encounter for long-term (current) use of other medications 06/18/2013 Atrial fibrillation, persistent 06/21/2012 Overview: Persistent atrial fibrillation in 2016 Ablation for atrial fibrillation 2015 Dr ROMAN NSR to sinus bradycardia Essential hypertension 02/17/2010 Special screening for malignant neoplasms, colon 11/10/2009 Hypothyroidism 10/05/2009 Localized osteoarthrosis, lower leg 05/18/2005 Depression, major, recurrent, moderate 01/23/2003 Hyperlipemia Tear film insufficiency as of this encounter Resolved Problems Problem Noted Date Resolved Date Diabetic peripheral vascular disease 12/15/2014 06/24/2015 as of this encounter Immunizations Name Dates Previously Given Next Due FLU VACCINE TRIVALENT 04/07/2013 MULTIDOSE(Fluvirin,Afluria) FLU VACCINE HIGH DOSE 65YR+ 02/13/2017, 01/31/2016, 02/08/2015, 02/17/2014 Influenza Trivalent w/preserv 04/07/2013, 02/01/2012, 02/01/2012, 01/17/2011, 05/21/2003, 05/21/2003 Influenza Vaccine,unspecified 01/16/2018, 01/20/2009, 05/18/2005, 04/10/2001 Pneumococcal Conj PCV13 05/04/2016 Pneumococcal Polysaccharide PPSV23 09/11/2017, 01/17/2011 TDAP 12/01/2014 Zoster Live(Zostavax) 10/01/2012 as of this encounter Social History Tobacco Use Types Packs/Day Years Used Date Former Smoker Pipe 0 Quit: 02/23/2002 Smokeless Tobacco: Never Used Comments: smoked a pipe but quit in 2001 Alcohol Use Drinks/Week oz/Week Comments No 0.0 Quit in 1983 Sex Assigned at Date Recorded Not on file as of this encounter Last Filed Vital Signs Vital Sign Reading Time Taken Blood Pressure 103/80 01/30/2018 8:27 AM CDT Pulse 61 01/30/2018 8:27 AM CDT Temperature 37.1 C (98.8 F) 01/30/2018 8:27 AM CDT Respiratory Rate 16 01/30/2018 8:27 AM CDT Oxygen Saturation 96% 01/30/2018 8:27 AM CDT Inhaled Oxygen Concentration - - Weight 110.9 kg (244 lb 8 oz) 01/30/2018 6:00 AM CDT Height 177.8 cm (5' 10") 01/29/2018 1:26 AM CDT Body Mass Index 35.08 01/30/2018 6:00 AM CDT in this encounter Functional Status Functional Status Response Date of Assessment Is the person deaf or does he/she have serious difficulty No 01/29/2018 hearing? Is this person blind or does he/she have difficulty No 01/29/2018 seeing even when wearing glasses? Do you have difficulty with walking, balance, climbing No 01/29/2018 stairs, or had a fall in the last 3 months? Does the patient have difficulty dressing or bathing? No 01/29/2018 Because of a physical, mental, or emotional condition; No 01/29/2018 does this person have difficulty doing errands alone such as visiting a doctor's office or shopping? Cognitive Status Response Date of Assessment Because of a physical, mental, or emotional condition; No 01/29/2018 does this person have serious difficulty concentrating, remembering, or making decisions? as of this encounter Discharge Instructions Jeanne Hightower RN - 01/30/2018Hold off on taking any Viagra for the next month. Readdress this at the heart failure clinic The following attachments cannot be sent through Care Everywhere.HEART ATTACK OR ANGINA, RECOGNIZING A ([place])HEART ATTACK, DISCHARGE INSTRUCTIONS FOR ( [place])HEART FAILURE, DISCHARGE INSTRUCTIONS FOR ([place])in this encounter Progress Notes Rachael Bhakta RPh - 01/30/2018 11:11 AM CDTMedication Education by Pharmacy Medication education was completed by pharmacy. The mechanism of action, efficacy, side effects, risks, and monitoring of aspirin, ticagrelor, atorvastatin, sublingual nitroglycerin, carvedilol, furosemide were reviewed with the patient. All questions were answered, and the patient verbalized understanding. Please call #[phone] with any questions. Respectfully, Rachael Bhakta [facility] [phone] Ney Carrizales RPh - 01/28/2018 11:34 PM CDTFormatting of this note may be different from the original. 01/28/2018 23:34 - Patient was seen by pharmacy on the [facility] unit. HOME MEDICATIONS have been reconciled and updated to match the patient's home usage. Ney Carrizales RPh Prior to Admission Medications Prescriptions Last Dose Informant Patient Reported? Taking? HYDROcodone-acetaminophen (NORCO) 5-325 mg tablet Past Week at Unknown time Self Yes Yes Sig: Take 1 tablet by mouth every 6 hours as needed for moderate pain acetaminophen (TYLENOL) 500 mg tablet Past Week at Unknown time Self Yes Yes Sig: Take 500-1,000 mg by mouth every 6 hours as needed for mild pain, fever &gt ; (indicate temp) orheadache DO NOT EXCEED 3000 mg of acetaminophen containing products in any 24 hour period. aspirin 81 mg enteric coated tablet 01/27/2018 at PM Self No Yes Sig: Take 1 tablet (81 mg) by mouth 1 time per day bariatric advantage advanced multi EA chewable multivitamin 01/28/2018 at AM Self No Yes Sig: Take 1 tablet by mouth 2 times a day Patient taking differently: Take 2 tablets by mouth 2 times a day buPROPion (WELLBUTRIN XL) 150 mg tablet (24 hr) 01/28/2018 at AM Self No Yes Sig: Take 1 tablet (150 mg) by mouth 1 time per day calcium citrate-vitamin D (CITRACAL + VIT D) 315 mg-250 unit tablet 01/28/2018 at AM Self Yes Yes Sig: Take 2 tablets by mouth 2 times a day latanoprost (XALATAN) 0.005 % ophthalmic solution 01/27/2018 at PM Self No Yes Sig: Place 1 drop into both eyes every night at bedtime levoFLOXacin (LEVAQUIN) 500 mg tablet 01/28/2018 at AM Self No Yes Sig: Take 1 tablet (500 mg) by mouth 1 time per day levothyroxine 112 mcg tablet 01/27/2018 at AM Self No Yes Sig: Take 1 tablet (112 mcg) by mouth 1 time per day metroNIDAZOLE (FLAGYL) 500 mg tablet 01/28/2018 at AM Self No Yes Sig: Take 1 tablet (500 mg) by mouth 3 times a day sildenafil (VIAGRA) 100 MG tablet Past month at Unknown time Self No Yes Sig: Take 1 tablet by mouth 1 time a day as needed for other (Specify) (as needed). Take 1 hour prior to sexual activity. simvastatin (ZOCOR) 20 mg tablet Past month at Unknown time Self No Yes Sig: Take 1 tablet (20 mg) by mouth every night at bedtime Facility-Administered Medications: None in this encounter Plan of Treatment Date Type Specialty Care Team Description 01/30/2018 Office Visit Neurology Iris Vaca MD [address] [place] [address] [phone] 02/21/2018 Office Visit Neurology Krista Delgadillo, PHD [address] [place] [address] 02/21/2018 Clinical Support Visit Neurology 03/01/2018 Office Visit Ophthalmology Cesar Snow MD [address] [place] [address] [phone] Name Priority Associated Diagnoses Date/Time EKG Routine 01/29/2018 5:04 PM CDT Name Priority Associated Diagnoses Order Schedule URINE DIP, REFLEX TO Routine Once for 1 Occurrences MICROSCOPIC, REFLEX TO starting 01/30/2018 until CULTURE 01/30/2018 Name Priority Associated Diagnoses Order Schedule CLINIC REFERRAL HEART FAILURE Routine Takotsubo cardiomyopathy Ordered: PROGRAM ONE CHART Health Maintenance Due Date Last Done Comments Abdominal Aortic Aneurysm 2013 Screening [facility] 2013 Directive document Zoster Vaccine (2 of 3 - 10/24/2018 10/01/2012 Postponed from Mixed Series (ZVL first) - 12/01/2012 (Patient RZV,Shingrix) Refused) Colonoscopy 01/14/2019 01/14/2018, 06/12/2013 Lipid Screening 01/29/2019 01/29/2018, 09/17/2017, 05/17/2016, Additional history exists Diabetes Screening 01/28/2021 01/28/2018, 01/28/2018, 01/15/2018, Additional history exists Tetanus Vaccine 12/01/2024 12/01/2014 Hepatitis C Screening Completed 02/13/2017 Pneumococcal 65yr+ Low/Med Completed 09/11/2017, 05/04/2016, Risk 01/17/2011 Influenza Vaccine Completed 01/16/2018, 02/13/2017, 01/31/2016, Additional history exists as of this encounter Procedures Procedure Name Priority Date/Time Associated Comments Diagnosis BRAIN NATRIURETIC Routine 01/30/2018 10:41 Results for this PEPTIDE AM CDT procedure are in the results section. PTT Timed Routine 01/30/2018 10:40 Results for this AM CDT procedure are in the results section. PTT Timed Routine 01/30/2018 5:33 Results for this AM CDT procedure are in the results section. COMPLETE BLOOD COUNT Routine 01/30/2018 5:33 Results for this WITHOUT DIFFERENTIAL AM CDT procedure are in the results section. RENAL FUNCTION PANEL Routine 01/30/2018 5:33 Results for this AM CDT procedure are in the results section. PTT Timed Routine 01/29/2018 11:49 Results for this PM CDT procedure are in the results section. PTT CARI 01/29/2018 3:54 Results for this PM CDT procedure are in the results section. PTT Timed Routine 01/29/2018 10:07 Results for this AM CDT procedure are in the results section. TROPONIN I Timed Routine 01/29/2018 10:07 Results for this AM CDT procedure are in the results section. TROPONIN I Timed Routine 01/29/2018 6:55 Results for this AM CDT procedure are in the results section. LIPID PANEL Routine 01/29/2018 4:37 Results for this AM CDT procedure are in the results section. PTT Timed Routine 01/29/2018 4:37 Results for this AM CDT procedure are in the results section. TROPONIN I Timed Routine 01/29/2018 4:37 Results for this AM CDT procedure are in the results section. LAB ONLY-COMPLETE STAT 01/28/2018 10:11 Results for this BLOOD COUNT WITH PM CDT procedure are in DIFFERENTIAL the results section. COLLECT AND HOLD STAT 01/28/2018 10:11 Results for this LAVENDER (EDTA) TOP PM CDT procedure are in TUBE the results section. PTT STAT 01/28/2018 10:11 Results for this PM CDT procedure are in the results section. PROTIME/INR STAT 01/28/2018 10:11 Results for this PM CDT procedure are in the results section. GLYCATED HEMOGLOBIN STAT 01/28/2018 10:11 Results for this PM CDT procedure are in the results section. TROPONIN I STAT 01/28/2018 10:11 Results for this PM CDT procedure are in the results section. MAGNESIUM STAT 01/28/2018 10:11 Results for this PM CDT procedure are in the results section. RENAL FUNCTION PANEL STAT 01/28/2018 10:11 Results for this PM CDT procedure are in the results section. COMPLETE BLOOD COUNT STAT 01/28/2018 10:11 Results for this WITH DIFFERENTIAL PM CDT procedure are in the results section. in this encounter Results BRAIN NATRIURETIC PEPTIDE (01/30/2018 10:41 AM) Component Value Ref Range BNP 368 (H) 0 - 100 pg/mL Specimen Performing Laboratory Blood [place] [address] [address] [address] PTT (01/30/2018 10:40 AM) Component Value Ref Range APTT 67 (H) 24 - 35 secs Specimen Performing Laboratory Blood [address] [address] XRAY CHEST PORTABLE - (01/30/2018 9:09 AM) Specimen Performing Laboratory PS360 Narrative Patient Name: FRANTZ GARCIA Date of :1950 Procedure: XRAY CHEST PORTABLE Date of Service: 01/30/2018 EXAM: XRAY CHEST PORTABLE INDICATION:temp, r/o pulm COMPARISON(S): 01/28/2018 most recent FINDINGS: Lungs clear with granulomatous changes. Heart not enlarged. Tortuous aorta. No pneumothorax. IMPRESSION: 1. No acute process. Finalized by: Jono Calero MD on 01/30/2018 10:25 AM Patient/Procedure Information: [facility] MRN/MARCELINO: [id number] Order Number: [id number] Accession Number: [id number] Ordering Provider: ANAM STANTON Authorizing Provider: JIM KYA Procedure Note Interface, Radiantres - 01/30/2018 10:27 AM CDT Patient Name: FRANTZ GARCIA Date of : 1950 Procedure: XRAY CHEST PORTABLE Date of Service: 01/30/2018 EXAM: XRAY CHEST PORTABLE INDICATION:temp, r/o pulm COMPARISON(S): 01/28/2018 most recent FINDINGS: Lungs clear with granulomatous changes. Heart not enlarged. Tortuous aorta. No pneumothorax. IMPRESSION: 1. No acute process. Finalized by: Jono Calero MD on 01/30/2018 10:25 AM Patient/Procedure Information: [facility] MRN/MARCELINO: [id number] Order Number: [id number] Accession Number: [id number] Ordering Provider: ANAM STANTON Authorizing Provider: JIM KAY PTT (01/30/2018 5:33 AM) Component Value Ref Range APTT 86 (H) 24 - 35 secs Specimen Performing Laboratory Blood [address] [place] [address] RENAL FUNCTION PANEL (01/30/2018 5:33 AM) Component Value Ref Range Glucose 98 70 - 100 mg/dL BUN 10 6 - 22 mg/dL Creatinine 0.70 (L) 0.80 - 1.30 mg/dL BUN/Creatinine Ratio 14.3 10.0 - 25.0 Sodium 139 135 - 145 meq/L Potassium 4.1 3.5 - 5.3 meq/L Chloride 109 99 - 110 meq/L CO2 24 20 - 29 meq/L Anion Gap with K 10 6 - 20 meq/L Calcium 9.1 8.5 - 10.5 mg/dL Phosphorus 3.9 2.5 - 4.5 mg/dL Albumin 3.5 3.5 - 5.0 g/dL Corrected Calcium 9.5 8.5 - 10.5 mg/dL Age 67 Years eGFR Non- >90 >=60 mL/min/1.73m2 eGFR >90 >=60 mL/min/1.73m2 Specimen Performing Laboratory Blood [address] [address] COMPLETE BLOOD COUNT WITHOUT DIFFERENTIAL (01/30/2018 5:33 AM) Component Value Ref Range WBC 7.9 4.0 - 11.0 K/uL RBC 3.86 (L) 4.40 - 5.80 M/uL Hemoglobin 12.0 (L) 13.5 - 17.5 g/dL Hematocrit 35.9 (L) 40.0 - 50.0 % MCV 93.0 80.0 - 98.0 fL MCH 31.1 25.5 - 34.0 pg MCHC 33.4 31.5 - 36.5 g/dL RDW-CV 12.4 11.5 - 15.5 % RDW-SD 42.0 35.5 - 50.0 fl Platelet Count 232 140 - 400 K/uL MPV 8.6 8.5 - 12.0 fL Specimen Performing Laboratory Blood [address] [address] PTT (01/29/2018 11:49 PM) Component Value Ref Range APTT 73 (H) 24 - 35 secs Specimen Performing Laboratory Blood [address] [address] PTT (01/29/2018 3:54 PM) Component Value Ref Range APTT 30 24 - 35 secs Specimen Performing Laboratory Blood [address] [address] ECHO ADULT COMPLETE (01/29/2018 3:29 PM) Narrative Patient: FRANTZ GARCIA MR#: [id number] Exam Date: 01/29/2018 Transthoracic Echocardiogram [address] : 113 /71 mmHg HR:60 bpm : 1950Exam Location:Bedside Height:70.00 "(177.8 cm) Age: 67 year(s)Patient Room: Exam37 37 Weight:244 lbs.(110.68 kg ) Gender:MalePatient Status: Inpatient BSA: 2.27 m2 [employer] Instructor: BRYCE MARTINO RDCS Reading Physician: JOAQUIM COBURN MD Ordering Physician:KRISTA BAEZ CNP Procedure Indication(s):Heart failure Examination:TTE Complete 2D(m-mode) , Complete Spectral Doppler, Color Doppler Conclusions Left Ventricle: Moderately reduced left ventricular systolic function. There is global hypokinesis with sparing of the basal segments. Doppler parameters are consistent with high left ventricular filling pressure. Aortic Valve: Mild aortic regurgitation. Right Ventricle: Normal right ventricular systolic function. Pulmonary Artery: The tricuspid jet envelope definition is inadequate for estimation of RV systolic pressure. Comparison Study Comparison Date: 07/30/2012 Comparison Study: Transthoracic Echocardiogram New RWMA's noted on today's exam, LV overall function has decreased from 55%-35 %, Aortic regurgitation has worsened Findings Left Ventricle: Normal left ventricular size. Normal left ventricular wall thickness. Moderately reduced left ventricular systolic function. The ejection fraction is visually estimated to be 35 %. There is global hypokinesis with sparing of the basal segments. Doppler parameters are consistent with high left ventricular filling pressure. There are left ventricular apical trabeculae. Left Atrium: Jynh-td-lvkjtpcszy dilated left atrium. Aortic Valve: The aortic valve is tricuspid. Mild aortic cuspal thickening. Aortic sclerosis is present. Mild aortic regurgitation. No aortic stenosis. Aorta: The sinus of valsalva is normal in size. Mitral Valve: Mild mitral leaflet thickening. Trivial mitral regurgitation. No mitral stenosis. IAS: No gross evidence of shunt flow seen; however the possibility of a PFO cannot be completely ruled out. Right Ventricle: Normal right ventricular size. Normal right ventricular systolic function. Normal right ventricular wall thickness. TAPSE measures 15 mm. Tricuspid valve lateral annulus peak systolic velocity is 12.3 cm/sec. Pulmonary Artery: The tricuspid jet envelope definition is inadequate for estimation of RV systolic pressure. Right Atrium: The right atrium was upper normal in size. Tricuspid Valve: Normal tricuspid valve structure. Trivial tricuspid regurgitation. Pulmonic Valve: Normal pulmonary valve structure. Mild pulmonary regurgitation. IVC: Normal IVC size with normal respirophasic changes. Pericardium: No significant pericardial effusion. Measurements Left Ventricle Aortic Valve LabelValueNormal Value LabelValueNormal Value LVDd, 2D50.3 mmLVOT Vmax 110 cm/s LVDs, 2D26.6 mmAV Vmax 162 cm/s IVSd, 2D13.9 mmLVOTd 26 mm LVPWd, 2D 9.5 mm LVOT VTI25.4 cm FS, 2D47.12 %LVOT PGmax5 mmHg Cardiac Output8.1 L/minAV Vqdpg291 cm/s Cardiac Index 3.57 AV VTI35.5 cm L/min/m-sq AV PGmax10 mmHg Right Ventricle AV PGmean 6 mmHg LabelValueNormal Value ARIANE (Vmax)3.6 cm-sq TAPSE 15 mmAR Vmax 374 cm/s S' Tissue Doppler 12.3 AR Slope1.5 m/s-sq cm/sec AR PDN356 ms Left Atrium AV Vmax, Dhuarow480 cm/s LabelValueNormal Value Mitral Valve LADs Long.65 mmLabel ValueNormal Value Aorta MV E Vmax 113 cm/s LabelValueNormal Value MV A Vmax 36 cm/s Ao Sinus, MM38 mmMV E/A3.14 Great Vessels MV E/E' lateral 11.1 LabelValueNormal Value MV E/E' deeszg56.4 PVein S 53 cm/sMV Dec Time 150 ms PVein D 70 cm/sMV E' septal0.1 cm/s S/D Ratio 0.8 MV E' lateral 0.1 cm/s Heart Rate Pulmonic Valve LabelValueNormal Value LabelValueNormal Value Heart Rate60 bpm PV Vmax 86 cm/s PV PGmax3 mmHg (No Signature Object) Procedure Note Interface, Inc Results No Pull Forward - 01/29/2018 4:40 PM CDT Patient: FRANTZ GARCIA MR#: [id number] Exam Date: 01/29/2018 Transthoracic Echocardiogram [facility] [address] [place] [address] BP: 113/71 mmHg HR: 60 bpm : 1950 Exam Location: Bedside Height: 70.00 "(177.8 cm) Age: 67 year(s) Patient Room: Exam37 37 Weight: 244 lbs.(110.68 kg) Gender: Male Patient Status: Inpatient BSA: 2.27 m2 Office Systems Technology Instructor: BRYCE MARTINO RDCS Reading Physician: JOAQUIM COBURN MD Ordering Physician: KRISTA BAEZ CNP Procedure Indication(s): Heart failure Examination: TTE Complete 2D(m-mode), Complete Spectral Doppler, Color Doppler Conclusions Left Ventricle: Moderately reduced left ventricular systolic function. There is global hypokinesis with sparing of the basal segments. Doppler parameters are consistent with high left ventricular filling pressure. Aortic Valve: Mild aortic regurgitation. Right Ventricle: Normal right ventricular systolic function. Pulmonary Artery: The tricuspid jet envelope definition is inadequate for estimation of RV systolic pressure. Comparison Study Comparison Date: 07/30/2012 Comparison Study: Transthoracic Echocardiogram New RWMA's noted on today's exam, LV overall function has decreased from 55%-35 %, Aortic regurgitation has worsened Findings Left Ventricle: Normal left ventricular size. Normal left ventricular wall thickness. Moderately reduced left ventricular systolic function. The ejection fraction is visually estimated to be 35 %. There is global hypokinesis with sparing of the basal segments. Doppler parameters are consistent with high left ventricular filling pressure. There are left ventricular apical trabeculae. Left Atrium: Rzmr-ps-wiltcpkpsw dilated left atrium. Aortic Valve: The aortic valve is tricuspid. Mild aortic cuspal thickening. Aortic sclerosis is present. Mild aortic regurgitation. No aortic stenosis. Aorta: The sinus of valsalva is normal in size. Mitral Valve: Mild mitral leaflet thickening. Trivial mitral regurgitation. No mitral stenosis. IAS: No gross evidence of shunt flow seen; however the possibility of a PFO cannot be completely ruled out. Right Ventricle: Normal right ventricular size. Normal right ventricular systolic function. Normal right ventricular wall thickness. TAPSE measures 15 mm. Tricuspid valve lateral annulus peak systolic velocity is 12.3 cm/sec. Pulmonary Artery: The tricuspid jet envelope definition is inadequate for estimation of RV systolic pressure. Right Atrium: The right atrium was upper normal in size. Tricuspid Valve: Normal tricuspid valve structure. Trivial tricuspid regurgitation. Pulmonic Valve: Normal pulmonary valve structure. Mild pulmonary regurgitation. IVC: Normal IVC size with normal respirophasic changes. Pericardium: No significant pericardial effusion. Measurements Left Ventricle Aortic Valve Label Value Normal Value Label Value Normal Value LVDd, 2D 50.3 mm LVOT Vmax 110 cm/s LVDs, 2D 26.6 mm AV Vmax 162 cm/s IVSd, 2D 13.9 mm LVOTd 26 mm LVPWd, 2D 9.5 mm LVOT VTI 25.4 cm FS, 2D 47.12 % LVOT PGmax 5 mmHg Cardiac Output 8.1 L/min AV Vmean 112 cm/s Cardiac Index 3.57 AV VTI 35.5 cm L/min/m-sq AV PGmax 10 mmHg Right Ventricle AV PGmean 6 mmHg Label Value Normal Value ARIANE (Vmax) 3.6 cm-sq TAPSE 15 mm AR Vmax 374 cm/s S' Tissue Doppler 12.3 AR [place] 1.5 m/s-sq cm/sec AR PHT 744 ms Left Atrium AV Vmax, Caliper 162 cm/s Label Value Normal Value Mitral Valve LADs Long. 65 mm Label Value Normal Value Aorta MV E Vmax 113 cm/s Label Value Normal Value MV A Vmax 36 cm/s Ao Sinus, MM 38 mm MV E/A 3.14 Great Vessels MV E/E' lateral 11.1 Label Value Normal Value MV E/E' septal 17.4 PVein S 53 cm/s MV Dec Time 150 ms PVein D 70 cm/s MV E' septal 0.1 cm/s S/D Ratio 0.8 MV E' lateral 0.1 cm/s Heart Rate Pulmonic Valve Label Value Normal Value Label Value Normal Value Heart Rate 60 bpm PV Vmax 86 cm/s PV PGmax 3 mmHg (No Signature Object) TROPONIN I (01/29/2018 10:07 AM) Component Value Ref Range Troponin I 0.217 (H) 0.000 - 0.028 ng/mL Specimen Performing Laboratory Blood [facility] [facility] [address] [place] [address] PTT (01/29/2018 10:07 AM) Component Value Ref Range APTT >150 (HH) 24 - 35 secs Specimen Performing Laboratory Blood [address] [address] ECHO ADULT LIMITED (01/29/2018 9:11 AM) Narrative Patient: FRANTZ GARCIA MR#:[id number] Exam Date:01/29/2018 Transthoracic Echocardiogram [address] :115/ 70 mmHg HR: : 1950Exam Location: Cath LabHeight: 70.00 "(177.8 cm) Age: 67 year(s)Patient Room:Exam37 37 Weight: 244 lbs.(110.68 kg) Gender:MalePatient Status:Inpatient BSA: 2.27 m2 [employer] Technology Instructor:NICK SAWYER Reading Physician:KRISTI CERVANTES MD Ordering Physician: KRISTI CERVANTES MD Procedure Indication(s): Pericardial effusion Examination: TTE 2D Limited without Contrast Conclusions Left Ventricle: The ejection fraction is visually estimated to be 35 %. There is global hypokinesis with sparing of the basal segments. Pericardium: No significant pericardial effusion. Comparison Study Comparison Study: No previous echo was available for comparison Findings Left Ventricle: Markedly reduced left ventricular systolic function. The ejection fraction is visually estimated to be 35 %. There is global hypokinesis with sparing of the basal segments. Pericardium: No significant pericardial effusion. (No Signature Object) Procedure Note Interface, Inc Results No Pull Forward - 01/29/2018 3:37 PM CDT Patient: FRANTZ GARCIA MR#: [id number] Exam Date: 01/29/2018 Transthoracic Echocardiogram [address] [address] BP: 115/70 mmHg HR: : 1950 Exam Location: Senior Consultant Height: 70.00 "(177.8 cm) Age: 67 year(s) Patient Room: Exam37 37 Weight: 244 lbs.(110.68 kg) Gender: Male Patient Status: Inpatient BSA: 2.27 m2 [employer] Technology Instructor: NICK SAWYER Reading Physician: KRISTI CERVANTES MD Ordering Physician: KRISTI CERVANTES MD Procedure Indication(s): Pericardial effusion Examination: TTE 2D Limited without Contrast Conclusions Left Ventricle: The ejection fraction is visually estimated to be 35 %. There is global hypokinesis with sparing of the basal segments. Pericardium: No significant pericardial effusion. Comparison Study Comparison Study: No previous echo was available for comparison Findings Left Ventricle: Markedly reduced left ventricular systolic function. The ejection fraction is visually estimated to be 35 %. There is global hypokinesis with sparing of the basal segments. Pericardium: No significant pericardial effusion. (No Signature Object) Cardiac Cath Possible Angioplasty Stent Senior Consultant - Left (01/29/2018 8:55 AM) Narrative Patient: FRANTZ GARCIA [facility] Exam Date: 01/29/[address]am Time:08:55 AM -09:24 AM (29 [place] [address] min.) Department of Interventional Cardiology Diagnostic Left Heart Catheterization Report :1950Height: 70.08 "(178.0 cm) Patient Status: InpatientAge:67 year(s)Weight:244.49 lbs.( 110.90 kg) Patient Room: Pool Room-NONE Gender: MaleBSA: 2.28 m2 Fluoro Time: 9.8 min.Cath Status: Diagnostic Nc Machinist:KRISTI CERVANTES MD Java Golden Gate Developer:KRISTI CERVANTES MD Indication:Angina/[place]: myocardial infarction without ST elevation (NSTEMI). Diagnostic Conclusions: - There is moderate single vessel coronary artery disease involving LAD which was not significant on IFR. Interventional Conclusions: Interventional Summary Proximal left anterior descending: A successful Pressure Wire was performed using a [employer] VERRATA FFR. Procedures Performed: Fluoro 0.1-60 Minutes. Medication/Infusion/Drip. Art Access - R radial artery. Selective Lt Coronary Angiography. Selective Rt Coronary Angiography. Left Heart Cath No Ventriculogram. Art Access - R femoral artery*. Barb Femoral Artery Injected for Closure Place. Pressure Wire Procedure. Echocardiogram. Hemostasis w/ Angioseal. Radial Artery Compression Device. Diagnostic Findings: Coronary Angiography The coronary circulation is right dominant. Left Main Left main artery: The segment is large. Angiography shows no disease. Left Anterior Descending Left anterior descending artery: The segment is large. Proximal left anterior descending: There is a 30 % stenosis. First diagonal: The segment is moderately sized. Angiography shows no disease. Circumflex Circumflex artery: The segment is moderately sized. There is a 30 % stenosis in the ostial portion of the segment. Right Coronary Right coronary artery: The segment is large. Mid right coronary artery: There is a 30 % stenosis. Right posterior descending artery: The segment is moderately sized. Angiography shows no disease. Right Posterolateral Segment: The segment is moderately sized. Angiography shows no disease. Ramus Ramus intermedius: The segment is large. Angiography shows no disease. Left Heart Cath Left ventricular function was not assessed. Ejection fraction was not calculated. The left ventricular end diastolic pressure was 17 mmHg. Interventional Findings: Interventional Details Proximal left anterior descending: The initial stenosis was 30 %. Instant wave- free ratio was performed using a [employer] VERRATA FFR with a calculated value pre-intervention of 0.92. A successful Pressure Wire was performed using a BMW HC .014 J 190CM [id number] HC during setup, and a [employer]OL[employer] VERRATA FFR During Procedure. The total number of attempt(s) was 1. Procedure Narrative: Access Right radial artery: The puncture site was infiltrated with 1.0 ml of 1% Lidocaine. Vascular access was obtained using modified seldinger technique and a 6FR GLIDESHEATH SLENDER .021 SHORT was advanced into the vessel. Hemostasis/Sheath Status: Hemostasis was successful using mechanical compression (RADIAL TR BAND). Right femoral artery: The puncture site was infiltrated with 5.0 ml of 1% Lidocaine. Vascular access was obtained and a 6FR ACT ULTIMUM 12CM [id number] was advanced into the vessel. Hemostasis/Sheath Status: Hemostasis was successful using a sealant (ANGIO-SEAL VASCULAR CLOSURE DEVICE 6F ). Coronary Angiography Left Coronary System: A catheter was positioned into the Vessel Ostium under fluoroscopic guidance. Contrast injections were performed using hand injection. Angiograms were obtained in multiple views. Right Coronary System: A catheter was positioned into the Vessel Ostium under fluoroscopic guidance. Contrast injections were performed using hand injection. Angiograms were obtained in multiple views. Hemodynamic Impressions General Impressions: Hemodynamic assessment demonstrates No systemic hypertension, Left ventricular end diastolic pressure is mildly elevated. Hemodynamic Findings Pressures: Baseline: LVpressure 103mmHg, EDP 17.Baseline: AO pressure 107/56mmHg, mean 77. Hemodynamic Pressures-Phase: Baseline Location : LV Pressure s : 103 mmHg Pressure ed : 17 mmHg HR : 62 bpm Hemodynamic Pressures-Phase: Baseline Location : Ao Pressure s : 107 mmHg Pressure d : 56 mmHg Pressure m : 77 mmHg HR : 57 bpm Flow Calculations, Phase: Baseline VO2: 284.4 ml/min Shunts Acute complication: No complications Contrast: Description DoseUnit HIS No. Reference No. Serial No. Lot No. [id number] Ordering Physician:KRISTA BAEZ DIRECTOR EDUCATIONAL RADIO CCL Milk Bottling Machine Operator:KAITLIN PALENCIA RN Scrub: [facility] Monitor: MICHELLE FAITH Chief Medical Officer: NICKY SHERIDAN RT(R) Primary Nc Machinist:KRISTI CERVANTES MD Diagnostic Physician Signature: (No Signature Object) Interventional Physician Signature: (No Signature Object) Procedure Note Interface, Inc Results No Pull Forward - 01/29/2018 3:10 PM CDT Patient: FRANTZ GARCIA [facility] Exam Date: 01/29/[address] Exam Time: 08:55 AM-09:24 AM (29 [place] [address] min.) Department of Interventional Cardiology Diagnostic Left Heart Catheterization Report : 1950 Height: 70.08 "(178.0 cm) Patient Status: Inpatient Age: 67 year(s) Weight: 244.49 lbs.(110.90 kg) Patient Room: Superior Room-NONE Gender: Male BSA: 2.28 m2 Fluoro Time: 9.8 min. Cath Status: Diagnostic Nc Machinist: KRISTI CERVANTES MD Java Golden Gate Developer: KRISTI CERVANTES MD Indication: Angina/[place]: myocardial infarction without ST elevation (NSTEMI). Diagnostic Conclusions: - There is moderate single vessel coronary artery disease involving LAD which was not significant on IFR. Interventional Conclusions: Interventional Summary Proximal left anterior descending: A successful Pressure Wire was performed using a SwatchcloudRATA FFR. Procedures Performed: Fluoro 0.1-60 Minutes. Medication/Infusion/Drip. Art Access - R radial artery. Selective Lt Coronary Angiography. Selective Rt Coronary Angiography. Left Heart Cath No Ventriculogram. Art Access - R femoral artery*. Barb Femoral Artery Injected for Closure Place. Pressure Wire Procedure. Echocardiogram. Hemostasis w/ Angioseal. Radial Artery Compression Device. Diagnostic Findings: Coronary Angiography The coronary circulation is right dominant. Left Main Left main artery: The segment is large. Angiography shows no disease. Left Anterior Descending Left anterior descending artery: The segment is large. Proximal left anterior descending: There is a 30 % stenosis. First diagonal: The segment is moderately sized. Angiography shows no disease. Circumflex Circumflex artery: The segment is moderately sized. There is a 30 % stenosis in the ostial portion of the segment. Right Coronary Right coronary artery: The segment is large. Mid right coronary artery: There is a 30 % stenosis. Right posterior descending artery: The segment is moderately sized. Angiography shows no disease. Right Posterolateral Segment: The segment is moderately sized. Angiography shows no disease. Ramus Ramus intermedius: The segment is large. Angiography shows no disease. Left Heart Cath Left ventricular function was not assessed. Ejection fraction was not calculated. The left ventricular end diastolic pressure was 17 mmHg. Interventional Findings: Interventional Details Proximal left anterior descending: The initial stenosis was 30 %. Instant wave- free ratio was performed using a VOLCANO VERRATA FFR with a calculated value pre-intervention of 0.92. A successful Pressure Wire was performed using a BMW HC .014 J 190CM [id number] HC during setup, and a VOLCANO VERRATA FFR During Procedure. The total number of attempt(s) was 1. Procedure Narrative: Access Right radial artery: The puncture site was infiltrated with 1.0 ml of 1% Lidocaine. Vascular access was obtained using modified seldinger technique and a 6FR GLIDESHEATH SLENDER .021 SHORT was advanced into the vessel. Hemostasis/Sheath Status: Hemostasis was successful using mechanical compression (RADIAL TR BAND). Right femoral artery: The puncture site was infiltrated with 5.0 ml of 1% Lidocaine. Vascular access was obtained and a 6FR ACT ULTIMUM 12CM [id number] was advanced into the vessel. Hemostasis/Sheath Status: Hemostasis was successful using a sealant (ANGIO- SEAL VASCULAR CLOSURE DEVICE 6F ). Coronary Angiography Left Coronary System: A catheter was positioned into the Vessel Ostium under fluoroscopic guidance. Contrast injections were performed using hand injection. Angiograms were obtained in multiple views. Right Coronary System: A catheter was positioned into the Vessel Ostium under fluoroscopic guidance. Contrast injections were performed using hand injection. Angiograms were obtained in multiple views. Hemodynamic Impressions General Impressions: Hemodynamic assessment demonstrates No systemic hypertension, Left ventricular end diastolic pressure is mildly elevated. Hemodynamic Findings Pressures: Baseline: LV pressure 103mmHg, EDP 17. Baseline: AO pressure 107/ 56mmHg, mean 77. Hemodynamic Pressures-Phase: Baseline Location : LV Pressure s : 103 mmHg Pressure ed : 17 mmHg HR : 62 bpm Hemodynamic Pressures-Phase: Baseline Location : Ao Pressure s : 107 mmHg Pressure d : 56 mmHg Pressure m : 77 mmHg HR : 57 bpm Flow Calculations, Phase: Baseline VO2: 284.4 ml/min Shunts Acute complication: No complications Contrast: Description Dose Unit HIS No. Reference No. Serial No. Lot No. Omnipaque [id number] [id number] Ordering Physician: KRISTA BAEZ CNP CCL Milk Bottling Machine Operator: KAITLIN PALENCIA RN Scrub: NICK MANZANO Monitor: MICHELLE FAITH Chief Medical Officer: NICKY SHERIDAN RT(R) Primary Nc Machinist: KRISTI CERVANTES MD Diagnostic Physician Signature: (No Signature Object) Interventional Physician Signature: (No Signature Object) TROPONIN I (01/29/2018 6:55 AM) Component Value Ref Range Troponin I 0.260 (H) 0.000 - 0.028 ng/mL Specimen Performing Laboratory Blood [address] [address] TROPONIN I (01/29/2018 4:37 AM) Component Value Ref Range Troponin I 0.309 (H) 0.000 - 0.028 ng/mL Specimen Performing Laboratory Blood [address] [address] PTT (01/29/2018 4:37 AM) Component Value Ref Range APTT 86 (H) 24 - 35 secs Specimen Performing Laboratory Blood [address] [address] LIPID PANEL (01/29/2018 4:37 AM) Component Value Ref Range Cholesterol 149 100 - 200 mg/dL Triglyceride 90 50 - 150 mg/dL HDL 48 40 - 80 mg/dL LDL 83 0 - 129 mg/dL Specimen Performing Laboratory Blood [facility] [address] [facility] [place] [address] EKG 12 LEAD (01/29/2018 4:20 AM)Only the most recent of2 resultswithin the time period is included. Component Value Ref Range EKG WAVEFORM Sinus bradycardia with sinus arrhythmia with 1st degree A-V block Left axis deviation Left bundle branch block Abnormal ECG When compared with ECG of 28-JAN-2018 20:55, Premature atrial complexes are no longer Present T wave inversion more evident in Anterior leads Ventricular Rate: 54 BPM Atrial Rate: 54 BPM P-R Interval: 230 ms QRS Duration: 144 ms Q-T Interval: 524 ms QTc Calculation(Bazett): 496 ms Calculated P [place]: 73 degrees Calculated R [place]: -73 degrees Calculated T [place]: -92 degrees PROTIME/INR (01/28/2018 10:11 PM) Component Value Ref Range Protime 14.2 12.0 - 14.5 secs INR 1.1 (L) 2.0 - 3.5 Specimen Performing Laboratory Blood [address] [address] Narrative Normal INR reference range (patients not on oral anticoagulants)0.9-1.1. INR Standard Intensity=(2.0 - 3.0) INR Higher Intensity=(2.5 - 3.5) MAGNESIUM (01/28/2018 10:11 PM) Component Value Ref Range Magnesium 2.4 1.8 - 2.4 mg/dL Specimen Performing Laboratory Blood [address] [address] COLLECT AND HOLD LAVENDER (EDTA) TOP TUBE (01/28/2018 10:11 PM) Component Value Ref Range Collect and Hold Specimen Status Comment: RECEIVED Specimen Performing Laboratory Blood [address] [address] LAB ONLY-COMPLETE BLOOD COUNT WITH DIFFERENTIAL (01/28/2018 10:11 PM) Component Value Ref Range WBC 6.2 4.0 - 11.0 K/uL RBC 4.04 (L) 4.40 - 5.80 M/uL Hemoglobin 12.6 (L) 13.5 - 17.5 g/dL Hematocrit 37.6 (L) 40.0 - 50.0 % MCV 93.1 80.0 - 98.0 fL MCH 31.2 25.5 - 34.0 pg MCHC 33.5 31.5 - 36.5 g/dL RDW-CV 12.2 11.5 - 15.5 % RDW-SD 41.5 35.5 - 50.0 fl Platelet Count 269 140 - 400 K/uL MPV 8.6 8.5 - 12.0 fL Seg Neut Absolute 2.7 1.8 - 8.0 K/uL Lymphocytes Absolute 2.8 0.8 - 4.1 K/uL Monocytes Absolute 0.5 0.0 - 1.0 K/uL Eosinophils Absolute 0.2 0.0 - 0.7 K/uL Basophil Absolute 0.0 0.0 - 0.2 K/uL Immature Granulocyte Absolute 0.02 0.00 - 0.06 K/uL Neutrophils Abs. (Segs and Bands) 2700 /uL Neutrophils Percent 44.5 % Lymphocytes Percent 45.0 % Monocytes Percent 7.5 % Immature Granulocyte Percent 0.3 % Eosinophils Percent 2.4 % Basophil Percent 0.6 % Specimen Performing Laboratory Blood [address] [address] [facility] [place], [place] [address] GLYCATED HEMOGLOBIN (01/28/2018 10:11 PM) Component Value Ref Range Hgb A1C 5.3 <5.7 % Estimated Average Glucose 105 mg/dL Specimen Performing Laboratory Blood [facility] [address] [place] [address] Narrative ADA Interpretive Guidelines When Using HbA1c for Diagnosis, Prediabetes 5.7 - 6.4% Diabetes >=6.5% When Using HbA1c for Monitoring of Known Diabetics, < 7% is a reasonable goal for many non adults. ADA Standards of Medical Care in Diabetes - 2018 COMPLETE BLOOD COUNT WITH DIFFERENTIAL (01/28/2018 10:11 PM) Specimen Performing Laboratory Blood Narrative The following orders were created for panel order COMPLETE BLOOD COUNT WITH DIFFERENTIAL. Procedure Abnormality Status --------- ------ LAB ONLY-COMPLETE BLOOD ...[[id number]]AbnormalFinal result Please view results for these tests on the individual orders. PTT (01/28/2018 10:11 PM) Component Value Ref Range APTT 42 (H) 24 - 35 secs Specimen Performing Laboratory Blood [address] [address] TROPONIN I (01/28/2018 10:11 PM) Component Value Ref Range Troponin I 0.279 (H) 0.000 - 0.028 ng/mL Specimen Performing Laboratory Blood [address] [address] RENAL FUNCTION PANEL (01/28/2018 10:11 PM) Component Value Ref Range Glucose 86 70 - 100 mg/dL BUN 14 6 - 22 mg/dL Creatinine 0.71 (L) 0.80 - 1.30 mg/dL BUN/Creatinine Ratio 19.7 10.0 - 25.0 Sodium 138 135 - 145 meq/L Potassium 4.1 3.5 - 5.3 meq/L Chloride 105 99 - 110 meq/L CO2 24 20 - 29 meq/L Anion Gap with K 13 6 - 20 meq/L Calcium 9.4 8.5 - 10.5 mg/dL Phosphorus 3.5 2.5 - 4.5 mg/dL Albumin 3.8 3.5 - 5.0 g/dL Corrected Calcium 9.6 8.5 - 10.5 mg/dL Age 67 Years eGFR Non- >90 >=60 mL/min/1.73m2 eGFR >90 >=60 mL/min/1.73m2 Specimen Performing Laboratory Blood [address] [address] in this encounter Visit Diagnoses Diagnosis Non-ST elevation [place] (NSTEMI) - Primary Acute myocardial infarction, unspecified site, episode of care unspecified 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 Dilated cardiomyopathy Other primary cardiomyopathies Chronic systolic CHF (congestive heart failure) Chronic systolic heart failure NSTEMI (non-ST elevated myocardial infarction) Acute myocardial infarction, subendocardial infarction, episode of care unspecified Takotsubo cardiomyopathy Takotsubo syndrome in this encounter Administered Medications Medication Order MAR Action Action Date Dose Rate Site acetaminophen (TYLENOL) tablet 650 mg Given 01/29/2018 01:59 CDT 650 mg 650 mg, Oral, Every four hours prn, Starting 01/28/18 at 2203, Until Discontinued, mild pain, If inadequate response in 60 minutes, may proceed to next choice option or if no other options, contact provider. Given 01/29/2018 18:05 CDT 650 mg Given 01/30/2018 03:09 CDT 650 mg aspirin enteric coated tablet 81 mg Given 01/29/2018 20:38 CDT 81 mg 81 mg, Oral, Bedtime, First dose on Sun01/29/18 at 2100, Until Discontinued, Tablet should be swallowed whole and not be divided, crushed or chewed. atorvaSTATin (LIPITOR) tablet 40 mg Given 01/29/2018 00:44 CDT 40 mg 40 mg, Oral, Bedtime, First dose on Sun01/28/18 at 2215, Until Discontinued Given 01/29/2018 20:38 CDT 40 mg buPROPion (WELLBUTRIN XL) tablet (24 hr) 150 mg Given 01/29/2018 12:33 CDT 150 mg 150 mg, Oral, DAILY, First dose on Sun01/29/18 at 0900, Until Discontinued, Tablet should not be crushed or chewed. Given 01/30/2018 08:30 CDT 150 mg carVEDilol (COREG) tablet 3.125 mg Given 01/30/2018 08:30 CDT 3.125 mg 3.125 mg, Oral, Two times a day with meals, First dose on Sun01/30/18 at 0800, Until Discontinued, Take with food. latanoprost (XALATAN) 0.005 % ophthalmic Given 01/29/2018 01:16 CDT 1 drop solution 1 drop 1 drop, Both eyes, Bedtime, First dose on Sun01/28/18 at 2210, Until Discontinued, 2.5 mL Given 01/29/2018 20:39 CDT 1 drop levothyroxine tablet 112 mcg Given 01/30/2018 06:26 CDT 112 mcg 112 mcg, Oral, DAILY, First dose on Sun01/29/18 at 0700, Until Discontinued nitroglycerin (NITROSTAT) sublingual tablet 0.4 Given 01/29/2018 04:30 CDT 0.4 mg mg 0.4 mg, Sublingual, Every five minutes prn, Starting Sun01/28/18 at 2211, Until Discontinued, chest pain, Sublingual as needed for chest pain every 5 minutes polyethylene glycol (MIRALAX) packet 1 packet Given 01/30/2018 08:30 CDT 1 packet 1 packet, Oral, Daily, First dose on Sun01/30/18 at 0900, Until Discontinued, Dissolve in 8 ounces of water, juice, soda, coffee, tea. senna-docusate sodium (SENOKOT-S;PERICOLACE) Given 01/30/2018 06:26 CDT 2 tablets tablet 2 tablet 2 tablet, Oral, Two times a day prn, Starting Sun01/28/18 at 2204, Until Discontinued, constipation, Use FIRST for constipation unless patient cannot take oral medications. sodium chloride 0.9% flush (adult) 10 mL Given 01/29/2018 00:36 CDT 10 mL 10 mL, IV, Two times a day and prn, First dose on Sun01/28/18 at 2120, Until Discontinued, 10 mL, Flush IV line as scheduled and as often as necessary before and after meds. sodium chloride 0.9% IV solution New Bag 01/29/2018 00:43 CDT 60 mL/hr IV, at 60 mL/hr, Continuous, Starting Sun01/28/18 at 2315, Until Discontinued, 1,000 mL New Bag 01/29/2018 13:18 CDT 60 mL/hr New Bag 01/30/2018 04:13 CDT 60 mL/hr ticagrelor (BRILINTA) tablet 90 mg Given 01/29/2018 12:33 CDT 90 mg 90 mg, Oral, Two times a day, First dose on Sun01/29/18 at 1200, Until Discontinued, Administer first dose 12 hours after Brilinta 180 mg loading dose. If medication is crushed, must be mixed with water for administration. Given 01/29/2018 20:39 CDT 90 mg Given 01/30/2018 08:30 CDT 90 mg Medication Order MAR Action Action Date Dose Rate Site aspirin tablet 325 mg Given 01/29/2018 08:10 CDT 325 mg 325 mg, Oral, One time, 1 dose, Sun01/29/18 at 0855, Prep Orders (Cath) if inpatient - floor RN to release, Patient to receive 325 mg aspirin prior to procedure If patient currently taking aspirin at home and has not taken their dose today prior to procedure: hold this dose and administer 325 mg atropine sulfate (1 mg/10mL) injection solution Given 01/29/2018 09:04 CDT 0.5 mg 0-1 mg 0-1 mg, IV, Administer in Cardiac Senior [facility], 1 dose, Sun01/29/18 at 0910, 10 mL, Under the direction of the provider in CCL. Do not give on the floor. fentaNYL 100 mcg/2 mL preservative free Given 01/29/2018 08:47 CDT 50 mcg injection solution 25-300 mcg 25-300 mcg, IV, PRN per parameter, Starting Sun01/29/18 at 0757, Until Sun01/29/18 at 0950, other (Specify), sedation for cardiac catheterization, 6 mL, Pre-Procedure (Cath), procedural area to release, For sedation under direction provider privileged to perform sedation. Do not give on the floor. Given 01/29/2018 09:08 CDT 50 mcg Given 01/29/2018 09:40 CDT 50 mcg hEParin (50 units/mL) in D5W New Bag 01/28/2018 22:45 CDT 15 Units/kg/hr 33.3 mL/hr premixed IV solution (STANDARD-weight based) 0-50 Units/kg/hr 110.9 kg (0-110.9 mL/hr), IV, at 0-110.9 mL/hr, Titrate, Starting Sun01/28/18 at 2235, Until Sun01/29/18 at 1242, 500 mL, Start initial infusion at 15 units/kg/hr. Notify physician if initial infusion exceeds 1,500 units/hr. Adjust heparin infusion based on sliding scale: aPTT less than 60 sec ------ Give 70 units/kg IV bolus and add 4 units/kg/hr to current rate aPTT 60-69.9 sec Give 35 units/kg IV bolus and add 2 units/kg/hr to current rate aPTT 70-120.9 sec No change (therapeutic) aPTT 121-135.9 sec Subtract 2 units/kg/hr from current rate aPTT 136-149.9 sec --------- Hold heparin for 1 hour and subtract 3 units/kg/hr from current rate aPTT 150 sec or greater - Redraw STAT aPTT and hold heparin. Draw STAT aPTT hourly until less than 150 sec, then restart heparin infusion at 3 units/kg/hr less than previous rate. AFTER PROCEDURE: When restarting infusion after it's been held for a procedure, restart infusion at "starting" dose of 15 units/kg/hr and follow titration orders. IF infusion was running at less than 15 units/kg/hr prior to procedure, restart at that rate and follow titration orders. Rate Verify 01/29/2018 05:32 CDT 15 Units/kg/hr 33.3 mL/hr hEParin (50 units/mL) in D5W New Bag 01/30/2018 06:32 CDT 15 Units/kg/hr 33.3 mL/hr premixed IV solution (STANDARD-weight based) 0-50 Units/kg/hr 110.9 kg (0-110.9 mL/hr), IV, at 0-110.9 mL/hr, Titrate, Starting 01/29/18 at 1645, Until Sun01/30/18 at 0942, 500 mL, Start initial infusion at 15 units/kg/hr. Notify physician if initial infusion exceeds 1,500 units/hr. Adjust heparin infusion based on sliding scale: aPTT less than 60 sec ------ Give 70 units/kg IV bolus and add 4 units/kg/hr to current rate aPTT 60-69.9 sec Give 35 units/kg IV bolus and add 2 units/kg/hr to current rate aPTT 70-120.9 sec No change (therapeutic) aPTT 121-135.9 sec Subtract 2 units/kg/hr from current rate aPTT 136-149.9 sec --------- Hold heparin for 1 hour and subtract 3 units/kg/hr from current rate aPTT 150 sec or greater - Redraw STAT aPTT and hold heparin. Draw STAT aPTT hourly until less than 150 sec, then restart heparin infusion at 3 units/kg/hr less than previous rate. AFTER PROCEDURE: When restarting infusion after it's been held for a procedure, restart infusion at "starting" dose of 15 units/kg/hr and follow titration orders. IF infusion was running at less than 15 units/kg/hr prior to procedure, restart at that rate and follow titration orders. Rate Verify 01/30/2018 06:33 CDT 15 Units/kg/hr 33.3 mL/hr Rate Verify 01/30/2018 07:33 CDT 15 Units/kg/hr 33.3 mL/hr heparin (porcine) injection solution Given 01/29/2018 09:14 CDT 3,000 Units 0-12,000 Units 0-12,000 Units, IV, Administer in Cardiac Senior Consultant, 1 dose, 01/29/18 at 0920, 12 mL, Under the direction of the provider in CCL. Do not give on the floor. iohexol (OMNIPAQUE) 350 mg/mL solution 170 mL Given 01/29/2018 09:33 CDT 170 mL 170 mL, Intra-arterial, One time, 1 dose, 01/29/18 at 0935, 200 mL metoprolol tartrate (LOPRESSOR) tablet 12.5 mg Given 01/29/2018 20:39 CDT 12.5 mg 12.5 mg, Oral, Two times a day, First dose on e 01/29/18 at 2100, Until Discontinued, Hold for SBP less than 100 Hold for HR less than 60 midazolam (VERSED) injection solution 1-20 mg Given 01/29/2018 08:47 CDT 1 mg 1-20 mg, IV, PRN per parameter, Starting e 01/29/18 at 0757, Until 01/29/18 at 0950, other (Specify), sedation for cardiac catheterization, 20 mL, Pre-Procedure (Cath), procedural area to release, For sedation under direction provider privileged to perform sedation Do not give on the floor morphine injection solution (conc: 2 mg/mL) 1 mg Given 01/29/2018 06:22 CDT 1 mg 1 mg, IV, Now, 1 dose, e 01/29/18 at 0620, 1 mL ondansetron (ZOFRAN) injection solution 0-4 mg Given 01/29/2018 09:19 CDT 4 mg 0-4 mg, IV, Administer in Cardiac Senior Consultant, 1 dose, e 01/29/18 at 0920, 2 mL, Under the direction of the provider in CCL. Do not give on the floor. sodium chloride 0.9% IV solution Rate Change 01/29/2018 08:00 CDT 75 mL/hr IV, at 75 mL/hr, Continuous, Starting Sun01/29/18 at 0800, Until Sun01/29/18 at 0950, 1,000 mL, Prep Orders (Cath) if inpatient - floor RN to release sodium chloride 0.9% IV solution Already Infusing 01/29/2018 09:57 CDT 150 mL/hr IV, at 150 mL/hr, Continuous, Starting Sun01/29/18 at 1000, Until Sun01/29/18 at 1159, 1,000 mL, Post-Procedure (Cath) ticagrelor (BRILINTA) tablet 180 mg Given 01/29/2018 00:44 CDT 180 mg 180 mg, Oral, One time, 1 dose, 01/28/18 at 2345, If medication is crushed, must be mixed with water for administration. in this encounter
== END 2018-01-28 20:55 ==
LOC: FB.ED 18:12
DX: I21.4 Non-ST elevation (NSTEMI) myocardial infarction (principal); I10 Essential (primary) hypertension; E11.69 Type 2 diabetes mellitus with other specified complication; E66.9 Obesity, unspecified; Z88.0 Allergy status to penicillin; Z88.2 Allergy status to sulfonamides; Z79.899 Other long term (current) drug therapy; Z87.891 Personal history of nicotine dependence
CPT/HCPCS: 36415; 71045; 80053; 81001; 83605; 84484; 85025; 85379; 85610; 85730; 87040; 93005; 93010; 96374; 96375; 99285; A9270-GY; J1644

== ENCOUNTER 2018-02-01 13:45 | Emergency (ER) | payer MEDICARE, BC ==
--- NOTE | 2018-02-01 14:06 | EDM.PDOC ---
ED HPI GENERAL MEDICAL PROBLEM - General Stated Complaint: CHEST PAIN Time Seen by Provider: 02/01/18 13:45 Source of Information: Reports: Patient History Limitations: Reports: No Limitations - History of Present Illness INITIAL COMMENTS - FREE TEXT/NARRATIVE: c/o twinge of CP pt with afib tx'ed with cardioversion in 2011 and ablation in 2014 had stent x 1 in 2011 had CP 4d ago with trop 0.3 here, dx NSTEMI, sent to [facility], cath done showing 30% blockage one vessel per pt, no stent needed pt given 4 new cardiac meds is supposed to f/u with both cardiology and HF clinic, he is waiting a call with apt times did not take meds today, watching political news on TV this AM and became upset , had several twinges of CP in R upper chest lasting a few seconds took NTG x 2 feels fine now, no other sxs comes via EMS lives with - Related Data Allergies Allergy/AdvReac Type Severity Reaction Status Date / Time Penicillins Allergy Seizure Verified 01/28/18 18:40 Sulfa (Sulfonamide Allergy Hives Verified 01/28/18 18:40 Antibiotics) Home Meds: Home Meds Levothyroxine Sodium 112 mcg PO DAILY 03/07/13 [History] Calcium Carbonate/Vitamin D3 [Caltrate 600 Plus D3 Tablet] 1 each PO BID [History] Multivitamin [Multi-Day Vitamins] 1 cap PO BID 08/16/16 [History] buPROPion [buPROPion XL] 150 mg PO BEDTIME 01/28/18 [History] Past Medical History HEENT History: Reports: Cataract, Glaucoma, Impaired Vision, Other (See Below) Other HEENT History: DRY EYES, POSTERIOR VITREOUS DETACHMENT Cardiovascular History: Reports: Afib, Arrhythmia, Blood Clots/VTE/DVT, CAD, High Cholesterol, Hypertension, Stents, Other (See Below) Other Cardiovascular History: hx a fib, had ablation, had 1 stent. ASHD, DIABETIC PERIPHERAL VASCULAR DISEASE Respiratory History: Reports: Asthma, Pneumonia, Recurrent, Sleep Apnea, Other ( See Below) Other Respiratory History: HISTOPLASMOSIS PNEUMONIA Gastrointestinal History: Reports: Colon Polyp, GERD Genitourinary History: Reports: None, Urinary Incontinence Musculoskeletal History: Reports: Arthritis, Osteoarthritis, Other (See Below) Other Musculoskeletal History: Fracture of right knee with steel and screw placed. 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 Fx or 3 ribs posterior left side. Fx of 3 ribs anterior left side. Neurological History: Reports: Concussion, Vertigo Psychiatric History: Reports: Anxiety, Depression, Other (See Below) Other Psychiatric History: hx ETOH abuse, DELUSIONAL DISORDER Endocrine/Metabolic History: Reports: Hypothyroidism, Obesity/BMI 30+ Hematologic History: Reports: Anemia, Blood Transfusion(s), Transfusion Reaction Immunologic History: Reports: None Oncologic (Cancer) History: Reports: None Dermatologic History: Reports: Cellulitis, Venous Stasis Dermatitis - Infectious Disease History Infectious Disease History: Reports: Chicken Pox, Measles, Mumps Other Infectious Disease History: hx osteomyelitis R hip. - Past Surgical History Head Surgeries/Procedures: Reports: None HEENT Surgical History: Reports: Adenoidectomy, Oral Surgery, Tonsillectomy Cardiovascular Surgical History: Reports: Cardiac Ablation, Coronary Artery Stent, Other (See Below) Other Cardiovascular Surgeries/Procedures: afib, CORONARY ANGIOPLASTY Respiratory Surgical History: Reports: None GI Surgical History: Reports: Bariatric Procedure, Cholecystectomy, Hernia Repair/Other, Other (See Below) Other GI Surgeries/Procedures: STOMACH SLEEVE Male Surgical History: Reports: Other (See Below) Other Male Surgeries/Procedures: LEFT HYDROCELE SPERMATOCELE Endocrine Surgical History: Reports: None Neurological Surgical History: Reports: None Musculoskeletal Surgical History: Reports: Hip Replacement, ORIF Other Musculoskeletal Surgeries/Procedures:: R hip replacement & fusion. R knee pinning. Fracture of right knee with steel and screw placed. RIGHT TIBIA REPAIR Oncologic Surgical History: Reports: None Social & Family History - Family History Family Medical History: Noncontributory GI: Reports: None - Caffeine Use Caffeine Use: Reports: Coffee, Soda ED ROS GENERAL - Review of Systems Review Of Systems: See Below Constitutional: Reports: No Symptoms HEENT: Reports: No Symptoms Respiratory: Reports: No Symptoms Cardiovascular: Reports: Chest Pain Endocrine: Reports: No Symptoms GI/Abdominal: Reports: No Symptoms : Reports: No Symptoms Musculoskeletal: Reports: No Symptoms Skin: Reports: No Symptoms Neurological: Reports: No Symptoms Psychiatric: Reports: No Symptoms Hematologic/Lymphatic: Reports: No Symptoms Immunologic: Reports: No Symptoms ED EXAM, GENERAL - Physical Exam Exam: See Below Exam Limited By: No Limitations General Appearance: Alert, WD/WN, No Apparent Distress Ears: Normal External Exam Nose: Normal Inspection, Normal Mucosa, No Blood Throat/Mouth: Normal Inspection, Normal Lips, Normal Voice, No Airway Compromise Head: Atraumatic, Normocephalic Neck: Normal Inspection, Supple, Non-Tender, Full Range of Motion Respiratory/Chest: No Respiratory Distress, Lungs Clear, Normal Breath Sounds, Chest Non-Tender Cardiovascular: Regular Rate, Rhythm, No Edema, No Gallop, No JVD, No Rub, Other (2/6 TASHA at LSB) GI/Abdominal: Soft, Non-Tender, No Distention Back Exam: Normal Inspection, Full Range of Motion, NT Extremities: Normal Inspection, Normal Range of Motion, Non-Tender, Other ( trace pretib edema b/l) Neurological: Alert, Oriented, CN II-XII Intact, Normal Cognition, No Motor/ Sensory Deficits Psychiatric: Normal Affect, Normal Mood Skin Exam: Warm, Dry, Intact, Normal Color, No Rash Lymphatic: No Adenopathy Course - Orders/Labs/Meds Orders: Active Orders 24 hr Category Date Time Status EKG 12 Lead [EK] Routine Ther 02/01/18 13:58 Ordered Labs: Laboratory Tests 02/01/18 02/01/18 02/01/18 Range/Units 14:20 14:20 14:20 WBC 5.3 (4.5-12.0) X10-3/uL RBC 3.92 L (4.30-5.75) x10(6)uL Hgb 12.7 (11.5-15.5) g/dL Hct 36.4 (30.0-51.3) % MCV 92.8 (80-96) fL MCH 32.3 (27.7-33.6) pg MCHC 34.8 (32.2-35.4) g/dL RDW 12.2 (11.5-15.5) % Plt Count 253 (125-369) X10(3)uL MPV 7.0 L (7.4-10.4) fL Neut % (Auto) 63.9 (46-82) % Lymph % (Auto) 24.3 (13-37) % [place] % (Auto) 8.2 (4-12) % Eos % (Auto) 3 (1.0-5.0) % Baso % (Auto) 1 (0-2) % Neut # (Auto) 3.5 (1.6-8.3) # Lymph # (Auto) 1.3 (0.6-5.0) # [place] # (Auto) 0.4 (0.0-1.3) # Eos # (Auto) 0.1 (0.0-0.8) # Baso # (Auto) 0.0 (0.0-0.2) # Sodium 138 (135-145) mmol/L Potassium 3.6 (3.5-5.3) mmol/L Chloride 103 (100-110) mmol/L Carbon Dioxide 25 (21-32) mmol/L BUN 18 (7-18) mg/dL Creatinine 0.8 (0.70-1.30) mg/dL Est Cr Clr Drug Dosing TNP Estimated GFR (MDRD) > 60 (>60) BUN/Creatinine Ratio 22.5 H (9-20) Glucose 107 (80-116) mg/dL Calcium 9.0 (8.6-10.2) mg/dL Total Bilirubin 0.4 (0.1-1.3) mg/dL AST 27 H (5-25) IU/L ALT 43 H D (12-36) U/L Alkaline Phosphatase 61 (56-112) IU/L Troponin I 0.342 H* (<0.017-0.056) ng/mL Total Protein 7.1 (6.0-8.0) g/dL Albumin 3.0 L (3.2-4.6) g/dL Globulin 4.1 g/dL Albumin/Globulin Ratio 0.7 - Re-Assessments/Exams Free Text/Narrative Re-Assessment/Exam: 02/01/18 16:08 labs neg, trop still inc'd 0.342, c/w prior NSTEMI d/w Dr Rodriguez, [place] [facility] who had cared for pt, pt had trop in [place] of 0.3, 0.2 and 0.2. Continuing current meds recommended. No clinical evidence of a new event. Pt reports he had been more active than he should have been the past 2 weeks, including pulling a boat 1/2 mile through chest deep water. He is planning on not mowing his grass for 3m, as per recommendation of Dr Rodriguez. Departure - Departure Time of Disposition: 16:11 Disposition: Home, Self-Care 01 Condition: Good Clinical Impression: Non-cardiac chest pain Instructions: Chest Wall Pain Additional Instructions: Your heart is doing well. Continue current meds which help protect the heart and increase the circulation of blood to the heart. See Dr Hollingsworth in the next 3-5 days. Call the [facility] in 3 days if you have not heard from them regarding your followup appointment. - My Orders Last 24 Hours: My Active Orders 02/01/18 13:58 EKG 12 Lead [EK] Routine - Assessment/Plan Last 24 Hours: My Active Orders 02/01/18 13:58 EKG 12 Lead [EK] Routine
[2018-02-01 17:05] VITALS: BP 152/82
== END 2018-02-01 16:15 | disposition home or self-care (01) ==
LOC: FB.ED 13:45
DX: R07.89 Other chest pain (principal); I10 Essential (primary) hypertension; I48.91 Unspecified atrial fibrillation; E03.9 Hypothyroidism, unspecified; E66.9 Obesity, unspecified; Z88.0 Allergy status to penicillin; Z88.2 Allergy status to sulfonamides
CPT/HCPCS: 36415; 80053; 84484; 85025; 93005; 99285

== ENCOUNTER 2018-07-23 05:45 | Emergency (ER) | payer MEDICARE, BC ==
[2018-07-23] MEDS ORDERED: Meclizine 25 MG Tab PO ONE (08:32)
--- NOTE | 2018-07-23 09:15 | EDM.PDOC ---
ED HPI GENERAL MEDICAL PROBLEM - General Chief Complaint: Neuro Symptoms/Deficits Stated Complaint: DIZZINESS Time Seen by Provider: 07/23/18 06:10 Source of Information: Reports: Patient - History of Present Illness INITIAL COMMENTS - FREE TEXT/NARRATIVE: pt c/o dizziness everytime he changes his position, this last for few seconds and then resolves on its own , this has been going on for 2 days, pt denies HAs , chest pain neck stiffness, SOB, or any other associated neuro or CV or Resp Sx or Hx of similar problems. pt has Hx of ablationsand cardiac arrhythmia , CAD , stents , denies ear pain or ringing sensation, denies recent medication . Posterior headache Pain Score (Numeric/FACES): 2 - Related Data Allergies Allergy/AdvReac Type Severity Reaction Status Date / Time Penicillins Allergy Seizure Verified 07/23/18 05:54 Sulfa (Sulfonamide Allergy Hives Verified 07/23/18 05:54 Antibiotics) Home Meds: Home Meds Levothyroxine Sodium 112 mcg PO DAILY 03/07/13 [History] Calcium Carbonate/Vitamin D3 [Caltrate 600 Plus D3 Tablet] 2 each PO BID [History] Multivitamin [Multi-Day Vitamins] 2 cap PO BID 08/16/16 [History] buPROPion [buPROPion XL] 150 mg PO DAILY 01/28/18 [History] .Slidenafil 100 mg PO DAILY PRN 02/01/18 [History] Aspirin [Lo-Dose Aspirin EC] 81 mg PO DAILY 02/01/18 [History] Carvedilol [Coreg] 12.5 mg PO BID 02/01/18 [History] Furosemide [Lasix] 20 mg PO DAILY 02/01/18 [History] Nitroglycerin 0.4 mg SL ASDIRECTED PRN 02/01/18 [History] atorvaSTATin [Lipitor] 40 mg PO BEDTIME 02/01/18 [History] traMADol [Ultram] 50 mg PO Q6H PRN 07/23/18 [History] Past Medical History HEENT History: Reports: Cataract, Glaucoma, Impaired Vision, Other (See Below) Other HEENT History: DRY EYES, POSTERIOR VITREOUS DETACHMENT Cardiovascular History: Reports: Afib, Arrhythmia, Blood Clots/VTE/DVT, CAD, High Cholesterol, Hypertension, [place], Stents, Other (See Below) Other Cardiovascular History: hx a fib, had ablation, had 1 stent. ASHD, DIABETIC PERIPHERAL VASCULAR DISEASE Respiratory History: Reports: Asthma, Pneumonia, Recurrent, Sleep Apnea, Other ( See Below) Other Respiratory History: HISTOPLASMOSIS PNEUMONIA Gastrointestinal History: Reports: Colon Polyp, GERD Genitourinary History: Reports: None, Urinary Incontinence Musculoskeletal History: Reports: Arthritis, Osteoarthritis, Other (See Below) Other Musculoskeletal History: Fracture of right knee with steel and screw placed. 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 Fx or 3 ribs posterior left side. Fx of 3 ribs anterior left side. Neurological History: Reports: Concussion, Headaches, Chronic, Vertigo Psychiatric History: Reports: Anxiety, Depression, Panic Attack, Psych Hospitalization(s), Other (See Below) Other Psychiatric History: hx ETOH abuse, DELUSIONAL DISORDER Endocrine/Metabolic History: Reports: Hypothyroidism, Obesity/BMI 30+ Hematologic History: Reports: Anemia, Blood Transfusion(s), Transfusion Reaction Immunologic History: Reports: None Oncologic (Cancer) History: Reports: None Dermatologic History: Reports: Cellulitis, Venous Stasis Dermatitis - Infectious Disease History Infectious Disease History: Reports: Chicken Pox, Measles, Mumps Other Infectious Disease History: hx osteomyelitis R hip. - Past Surgical History Head Surgeries/Procedures: Reports: None HEENT Surgical History: Reports: Adenoidectomy, Laser Surgery, Oral Surgery, Tonsillectomy Other HEENT Surgeries/Procedures: laser surg on tear ducts bilat, Cardiovascular Surgical History: Reports: Cardiac Ablation, Coronary Artery Stent, Other (See Below) Other Cardiovascular Surgeries/Procedures: afib, CORONARY ANGIOPLASTY Respiratory Surgical History: Reports: None GI Surgical History: Reports: Bariatric Procedure, Cholecystectomy, Colonoscopy , Hernia Repair/Other, Other (See Below) Other GI Surgeries/Procedures: STOMACH SLEEVE Male Surgical History: Reports: Other (See Below) Other Male Surgeries/Procedures: LEFT HYDROCELE SPERMATOCELE Endocrine Surgical History: Reports: None Neurological Surgical History: Reports: None Musculoskeletal Surgical History: Reports: Hip Replacement, ORIF Other Musculoskeletal Surgeries/Procedures:: R hip replacement & fusion. R knee pinning. Fracture of right knee with steel and screw placed. RIGHT TIBIA REPAIR Oncologic Surgical History: Reports: None Social & Family History - Family History Family Medical History: Noncontributory GI: Reports: None - Tobacco Use Smoking Status *Q: Former Smoker Years of Tobacco use: 15 Used Tobacco, but Quit: Yes Month/Year Tobacco Last Used: 2011 - Caffeine Use Caffeine Use: Reports: Coffee, Soda - Recreational Drug Use Recreational Drug Use: No ED ROS GENERAL - Review of Systems Review Of Systems: See Below Constitutional: Denies: Fever, Chills, Fatigue HEENT: Reports: No Symptoms Respiratory: Reports: No Symptoms Cardiovascular: Reports: No Symptoms GI/Abdominal: Reports: No Symptoms Musculoskeletal: Reports: No Symptoms Neurological: Reports: Dizziness. Denies: Confusion, Headache, Pre-Existing Deficit, Seizure, Trouble Speaking, Difficulty Walking, Weakness Psychiatric: Reports: No Symptoms ED EXAM, GENERAL - Physical Exam Exam: See Below Exam Limited By: No Limitations General Appearance: Alert, No Apparent Distress Ears: Normal TMs Nose: Normal Inspection Throat/Mouth: Normal Inspection, Normal Oropharynx Head: Atraumatic Neck: Normal Inspection, Supple, Non-Tender Respiratory/Chest: No Respiratory Distress, Lungs Clear, Normal Breath Sounds Cardiovascular: Normal Peripheral Pulses, Regular Rate, Rhythm GI/Abdominal: Normal Bowel Sounds, Soft, Non-Tender Neurological: Alert, Oriented, CN II-XII Intact, Normal Cognition Psychiatric: Normal Affect Course - Vital Signs Text/Narrative:: EKG shows ectopic atrial rhythm and premature complexes , his vitals are WNL , and pt feels better after antivert. unremarkable labs /CT results were explained to pt . there are no orthostatic changes . pt has benign positional vertigo , antivert and supportive mng were recommended. pt to follow with PCP in 2 days for re-check Last Recorded V/S: Last Vital Signs Temp 36.6 C 07/23/18 05:50 Pulse 83 07/23/18 05:50 Resp 18 07/23/18 05:50 BP 135/69 07/23/18 05:50 Pulse Ox 96 07/23/18 05:50 Orthostatic Blood Pressure [ 128/72 Standing] Orthostatic Blood Pressure [ 105/58 Sitting] Orthostatic Blood Pressure [ 119/59 Supine] - Orders/Labs/Meds Orders: Active Orders 24 hr Category Date Time Status EKG Documentation Completion [RC] ASDIRECTED Care 07/23/18 06:37 Active Head wo Cont [CT] Stat Exams 07/23/18 06:37 Taken EKG 12 Lead [EK] Routine Ther 07/23/18 06:37 Ordered Labs: Laboratory Tests 07/23/18 07/23/18 07/23/18 Range/Units 06:43 06:43 06:43 WBC 6.6 (4.5-12.0) X10-3/uL RBC 4.21 L (4.30-5.75) x10(6)uL Hgb 13.0 L (13.5-17.8) g/dL Hct 39.2 (30.0-51.3) % MCV 93.1 (80-96) fL MCH 31.0 (27.7-33.6) pg MCHC 33.3 (32.2-35.4) g/dL RDW 12.8 (11.5-15.5) % Plt Count 258 (125-369) X10(3)uL MPV 6.6 L (7.4-10.4) fL Neut % (Auto) 55.1 (46-82) % Lymph % (Auto) 34.6 (13-37) % Thomas % (Auto) 7.9 (4-12) % Eos % (Auto) 2 (1.0-5.0) % Baso % (Auto) 1 (0-2) % Neut # (Auto) 3.7 (1.6-8.3) # Lymph # (Auto) 2.3 (0.6-5.0) # Thomas # (Auto) 0.5 (0.0-1.3) # Eos # (Auto) 0.1 (0.0-0.8) # Baso # (Auto) 0.0 (0.0-0.2) # Sodium 141 (135-145) mmol/L Potassium 3.7 (3.5-5.3) mmol/L Chloride 103 (100-110) mmol/L Carbon Dioxide 28 (21-32) mmol/L BUN 23 H (7-18) mg/dL Creatinine 0.8 (0.70-1.30) mg/dL Est Cr Clr Drug Dosing 88.72 mL/min Estimated GFR (MDRD) > 60 (>60) BUN/Creatinine Ratio 28.8 H (9-20) Glucose 139 H (80-116) mg/dL Calcium 9.3 (8.6-10.2) mg/dL Total Bilirubin 0.4 (0.1-1.3) mg/dL AST 36 H D (5-25) IU/L ALT 63 H D (12-36) U/L Alkaline Phosphatase 69 (56-112) IU/L Troponin I < 0.017 L (<0.017-0.056) ng/mL Total Protein 6.8 (6.0-8.0) g/dL Albumin 3.6 (3.2-4.6) g/dL Globulin 3.2 g/dL Albumin/Globulin Ratio 1.1 Urine Color (YELLOW) Urine Appearance (CLEAR) Urine pH (5.0-6.5) Ur Specific [place] (1.010-1.025) Urine Protein (NEGATIVE) mg/dL Urine Glucose (UA) (NORMAL) mg/dL Urine Ketones (NEGATIVE) mg/dL Urine Occult Blood (NEGATIVE) Urine Nitrite (NEGATIVE) Urine Bilirubin (NEGATIVE) Urine Urobilinogen (NEGATIVE) mg/dL Ur Leukocyte Esterase (NEGATIVE) Urine WBC (0-5) Ur Squamous Epith Cells (NS,R,O) Urine Bacteria (NS) 07/23/18 Range/Units 07:28 WBC (4.5-12.0) X10-3/uL RBC (4.30-5.75) x10(6)uL Hgb (13.5-17.8) g/dL Hct (30.0-51.3) % MCV (80-96) fL MCH (27.7-33.6) pg MCHC (32.2-35.4) g/dL RDW (11.5-15.5) % Plt Count (125-369) X10(3)uL MPV (7.4-10.4) fL Neut % (Auto) (46-82) % Lymph % (Auto) (13-37) % Thomas % (Auto) (4-12) % Eos % (Auto) (1.0-5.0) % Baso % (Auto) (0-2) % Neut # (Auto) (1.6-8.3) # Lymph # (Auto) (0.6-5.0) # Thomas # (Auto) (0.0-1.3) # Eos # (Auto) (0.0-0.8) # Baso # (Auto) (0.0-0.2) # Sodium (135-145) mmol/L Potassium (3.5-5.3) mmol/L Chloride (100-110) mmol/L Carbon Dioxide (21-32) mmol/L BUN (7-18) mg/dL Creatinine (0.70-1.30) mg/dL Est Cr Clr Drug Dosing mL/min Estimated GFR (MDRD) (>60) BUN/Creatinine Ratio (9-20) Glucose (80-116) mg/dL Calcium (8.6-10.2) mg/dL Total Bilirubin (0.1-1.3) mg/dL AST (5-25) IU/L ALT (12-36) U/L Alkaline Phosphatase (56-112) IU/L Troponin I (<0.017-0.056) ng/mL Total Protein (6.0-8.0) g/dL Albumin (3.2-4.6) g/dL Globulin g/dL Albumin/Globulin Ratio Urine Color Yellow (YELLOW) Urine Appearance Clear (CLEAR) Urine pH 6.0 (5.0-6.5) Ur Specific [place] 1.020 (1.010-1.025) Urine Protein Negative (NEGATIVE) mg/dL Urine Glucose (UA) Normal (NORMAL) mg/dL Urine Ketones Negative (NEGATIVE) mg/dL Urine Occult Blood Negative (NEGATIVE) Urine Nitrite Negative (NEGATIVE) Urine Bilirubin Negative (NEGATIVE) Urine Urobilinogen Normal (NEGATIVE) mg/dL Ur Leukocyte Esterase Negative (NEGATIVE) Urine WBC 0-5 (0-5) Ur Squamous Epith Cells Few H (NS,R,O) Urine Bacteria Few H (NS) Meds: Medications Discontinued Medications Generic Name Dose Route Start Last Admin Trade Name Freq PRN Reason Stop Dose Admin Meclizine HCl 25 mg 07/23/18 08:32 07/23/18 08:39 Antivert PO 07/23/18 08:33 25 mg ONETIME ONE Administration Departure - Departure Time of Disposition: 09:22 Disposition: Home, Self-Care 01 Clinical Impression: Positional vertigo - Discharge Information Referrals: Marlon Hollingsworth MD [Primary Care Provider] - - My Orders Last 24 Hours: My Active Orders 07/23/18 06:37 EKG Documentation Completion [RC] ASDIRECTED Head wo Cont [CT] Stat EKG 12 Lead [EK] Routine - Assessment/Plan Last 24 Hours: My Active Orders 07/23/18 06:37 EKG Documentation Completion [RC] ASDIRECTED Head wo Cont [CT] Stat EKG 12 Lead [EK] Routine
[2018-07-23 10:52] VITALS: BP 111/77
== END 2018-07-23 09:45 | disposition home or self-care (01) ==
LOC: FB.ED 05:45
DX: H81.10 Benign paroxysmal vertigo, unspecified ear (principal); I10 Essential (primary) hypertension; E78.00 Pure hypercholesterolemia, unspecified; F41.9 Anxiety disorder, unspecified; F32.9 Major depressive disorder, single episode, unspecified; I48.91 Unspecified atrial fibrillation; E03.9 Hypothyroidism, unspecified; Z87.891 Personal history of nicotine dependence; Z79.82 Long term (current) use of aspirin; Z79.899 Other long term (current) drug therapy; Z88.0 Allergy status to penicillin; Z88.2 Allergy status to sulfonamides
CPT/HCPCS: 36415; 70450; 80053; 81001; 84484; 85025; 93005; 99284; A9270

== ENCOUNTER 2019-01-30 07:20 | Day surgery (SDC) | payer MEDICARE, BC ==
[2019-01-30] MEDS ORDERED: Lidocaine 2% 100 MG/5 ML Syringe IVPUSH ONE (07:21)
[2019-01-30] MEDS ORDERED: Propofol 200 MG/20 ML SDV IV ONE (07:21)
[2019-01-30] MEDS ORDERED: Lactated Ringers 1,000 ML IV SCH (07:30)
[2019-01-30] MEDS ORDERED: Sodium Chloride 0.9% 10 ML Syringe FLUSH PRN (07:30)
--- NOTE | 2019-01-30 09:00 | PCM.OPNOTE ---
- General Post-Op/Procedure Note Date of Surgery/Procedure: 01/30/19 Operative Procedure(s): c scope with biopsy Findings: transverse colon and rectal polyp sigmoid diverticulosis Pre Op Diagnosis: hx of colon polyps Post-Op Diagnosis: as above Anesthesia Technique: MAC Primary Surgeon: Timbo Morales Anesthesia Provider: Jeanne Pizano Pathology: colon polyps Complications: None Condition: Good Free Text/Narrative:: see dictation
[2019-01-30 10:45] VITALS: BP 146/69; PULSE 52
--- NOTE | 2019-01-30 14:44 | OR ---
DATE OF OPERATION: 01/30/2019 SURGEON: Timbo Morales MD PROCEDURE PERFORMED: Colonoscopy with cold forceps biopsy. PREOPERATIVE DIAGNOSIS: Personal history of colon polyps. POSTOPERATIVE DIAGNOSES: Polyp of the transverse and rectum as well as sigmoid diverticulosis. INDICATIONS FOR PROCEDURE: Mr. Garcia is an individual who underwent a colonoscopy last year, had some adenomatous polyps removed. Due to the number, it was recommended that he followup at this time. DESCRIPTION OF OPERATION: After an excellent IV sedation was administered, digital rectal exam was performed. No marked abnormality was noted. Flexible colonoscope was inserted and advanced to cecum. Prep was excellent. Following findings were noted. Ascending colon, unremarkable. Transverse, small polyp, biopsy was taken. It was about 2 mm in size and had the appearance of hyperplasia. Descending colon, unremarkable. Sigmoid, mild diverticulosis. Rectum, small adenomatous-appearing polyp, again about 3 mm in size, biopsied and sent for permanent. The colon was deflated. Scope was removed. The patient tolerated the procedure well and was taken to recovery room in good condition. Results by letter. /[id number] /MODL
== END 2019-01-30 10:22 | disposition home or self-care (01) ==
LOC: FB.SDS 07:20
PROVIDERS: ATTEND Surgery
DX: D12.3 Benign neoplasm of transverse colon (principal); D12.8 Benign neoplasm of rectum; K57.30 Diverticulosis of large intestine without perforation or abscess without bleeding; K21.9 Gastro-esophageal reflux disease without esophagitis; I25.10 Atherosclerotic heart disease of native coronary artery without angina pectoris; I11.0 Hypertensive heart disease with heart failure; I50.9 Heart failure, unspecified; I48.1 Persistent atrial fibrillation; I25.2 Old myocardial infarction; E03.9 Hypothyroidism, unspecified; E66.9 Obesity, unspecified; J45.909 Unspecified asthma, uncomplicated; F33.9 Major depressive disorder, recurrent, unspecified; F41.9 Anxiety disorder, unspecified; G47.33 Obstructive sleep apnea (adult) (pediatric); H40.1130 Primary open-angle glaucoma, bilateral, stage unspecified; Z88.0 Allergy status to penicillin; Z88.2 Allergy status to sulfonamides; Z68.36 Body mass index [BMI] 36.0-36.9, adult; Z95.5 Presence of coronary angioplasty implant and graft; Z86.010 Personal history of colon polyps; Z79.82 Long term (current) use of aspirin; Z79.02 Long term (current) use of antithrombotics/antiplatelets; Z79.899 Other long term (current) drug therapy
CPT/HCPCS: 00812; 45380; 88305; J2001; J2704; J7120

== ENCOUNTER 2019-08-07 17:32 | Emergency (ER) | payer MEDICARE, BC ==
--- NOTE | 2019-08-07 19:45 | EDM.PDOC ---
ED HPI GENERAL MEDICAL PROBLEM - General Chief Complaint: General Stated Complaint: Chest pain Time Seen by Provider: 08/07/19 17:50 Source of Information: Reports: Patient History Limitations: Reports: No Limitations - History of Present Illness INITIAL COMMENTS - FREE TEXT/NARRATIVE: Patient presented to the ED because of left ant chest pain which occurred at 0930. the pain is sharp and lasted for 5 minutes. there is no associated, Dyspnea,N/V. He is worried that he has a heart attack because he has a stent in 06/2012. - Related Data Allergies Allergy/AdvReac Type Severity Reaction Status Date / Time Penicillins Allergy Seizure Verified 01/30/19 08:04 Sulfa (Sulfonamide Allergy Hives Verified 01/30/19 08:04 Antibiotics) Home Meds: Home Meds Levothyroxine Sodium 112 mcg PO DAILY 03/07/13 [History] Calcium Carbonate/Vitamin D3 [Caltrate 600 Plus D3 Tablet] 2 each PO BID [History] Multivitamin [Multi-Day Vitamins] 1 cap PO DAILY 08/16/16 [History] buPROPion [buPROPion XL] 150 mg PO DAILY 01/28/18 [History] Aspirin [Lo-Dose Aspirin EC] 81 mg PO DAILY 02/01/18 [History] Carvedilol [Coreg] 12.5 mg PO BIDMEALS 02/01/18 [History] Furosemide [Lasix] 20 mg PO DAILY 02/01/18 [History] atorvaSTATin [Lipitor] 40 mg PO BEDTIME 02/01/18 [History] Clopidogrel [Plavix] 75 mg PO DAILY 01/29/19 [History] Ketorolac [Acular 0.5% Ophth Soln] 1 drop OP ASDIRECTED 01/29/19 [History] Mirtazapine [Remeron] 30 mg PO BEDTIME 01/29/19 [History] Ofloxacin [Ocuflox 0.3% Ophth Soln] 1 drop OP ASDIRECTED 01/29/19 [History] prednisoLONE acetate [Pred Forte 1% Ophth Susp] 1 drop OP ASDIRECTED 01/29/19 [ History] Past Medical History HEENT History: Reports: Cataract, Glaucoma, Impaired Vision, Other (See Below) Other HEENT History: DRY EYES, POSTERIOR VITREOUS DETACHMENT Cardiovascular History: Reports: Afib, Arrhythmia, Blood Clots/VTE/DVT, CAD, Heart Failure, High Cholesterol, Hypertension, [place], Stents, Other (See Below) Other Cardiovascular History: hx a fib, had ablation, had 1 stent. ASHD, DIABETIC PERIPHERAL VASCULAR DISEASE. N-STEMI. AV IDALMIS RE-ENTRY TACHY. HYPOTENSION. Stent paced 2012 Respiratory History: Reports: Asthma, Pneumonia, Recurrent, Sleep Apnea, Other ( See Below) Other Respiratory History: HISTOPLASMOSIS PNEUMONIA Gastrointestinal History: Reports: Colon Polyp, GERD Genitourinary History: Reports: Urinary Incontinence Musculoskeletal History: Reports: Arthritis, Osteoarthritis, Other (See Below) Other Musculoskeletal History: Fracture of right knee with steel and screw placed. 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 Fx or 3 ribs posterior left side. Fx of 3 ribs anterior left side. CELLULITIS Neurological History: Reports: Concussion, Headaches, Chronic, Vertigo Psychiatric History: Reports: Anxiety, Depression, Panic Attack, Psych Hospitalization(s), Other (See Below) Other Psychiatric History: hx ETOH abuse, DELUSIONAL DISORDER Endocrine/Metabolic History: Reports: Hypothyroidism, Obesity/BMI 30+ Hematologic History: Reports: Anemia, Blood Transfusion(s), Transfusion Reaction Immunologic History: Reports: None Oncologic (Cancer) History: Reports: None Dermatologic History: Reports: Cellulitis, Venous Stasis Dermatitis - Infectious Disease History Infectious Disease History: Reports: Chicken Pox, Measles, Mumps Other Infectious Disease History: hx osteomyelitis R hip. - Past Surgical History Head Surgeries/Procedures: Reports: None HEENT Surgical History: Reports: Adenoidectomy, Eye Surgery, Laser Surgery, Oral Surgery, Tonsillectomy Other HEENT Surgeries/Procedures: laser surg on tear ducts bilat, Cardiovascular Surgical History: Reports: Cardiac Ablation, Coronary Artery Stent, Other (See Below) Other Cardiovascular Surgeries/Procedures: afib, CORONARY ANGIOPLASTY Respiratory Surgical History: Reports: None GI Surgical History: Reports: Bariatric Procedure, Cholecystectomy, Colonoscopy , Hernia Repair/Other, Other (See Below) Other GI Surgeries/Procedures: STOMACH SLEEVE Male Surgical History: Reports: Other (See Below) Other Male Surgeries/Procedures: LEFT HYDROCELE SPERMATOCELE Endocrine Surgical History: Reports: None Neurological Surgical History: Reports: None Musculoskeletal Surgical History: Reports: Carpal Tunnel, Hip Replacement, ORIF Other Musculoskeletal Surgeries/Procedures:: R hip replacement & fusion. R knee pinning. Fracture of right knee with steel and screw placed. RIGHT TIBIA REPAIR Oncologic Surgical History: Reports: None Social & Family History - Family History Family Medical History: Noncontributory GI: Reports: None - Caffeine Use Caffeine Use: Reports: Coffee - Recreational Drug Use Recreational Drug Use: No ED ROS GENERAL - Review of Systems Review Of Systems: See Below Constitutional: Reports: No Symptoms HEENT: Reports: No Symptoms Respiratory: Reports: No Symptoms Cardiovascular: Reports: Chest Pain Endocrine: Reports: No Symptoms GI/Abdominal: Reports: No Symptoms : Reports: No Symptoms Musculoskeletal: Reports: No Symptoms Skin: Reports: No Symptoms Neurological: Reports: No Symptoms Psychiatric: Reports: No Symptoms ED EXAM, GENERAL - Physical Exam Exam: See Below Exam Limited By: No Limitations General Appearance: Alert, No Apparent Distress Ears: Normal External Exam, Normal Canal Nose: Normal Inspection, Normal Mucosa, No Blood Throat/Mouth: Normal Inspection, Normal Lips, Normal Teeth, Normal Gums Head: Atraumatic, Normocephalic Neck: Normal Inspection, Supple, Non-Tender, Full Range of Motion Respiratory/Chest: No Respiratory Distress, Lungs Clear, Normal Breath Sounds, Chest Non-Tender Cardiovascular: Normal Peripheral Pulses, Regular Rate, Rhythm, No Edema, No Gallop Back Exam: Normal Inspection, Full Range of Motion Extremities: Normal Inspection, Normal Range of Motion Neurological: Oriented, CN II-XII Intact, Normal Cognition Psychiatric: Normal Affect, Normal Mood Skin Exam: Warm Course - Vital Signs Text/Narrative:: Labs/EKG was discussed with patient and verbalized full understanding EKG-NSR Trop-neg ASA 324 mg po x1 Last Recorded V/S: Last Vital Signs Temp 36.6 C 08/07/19 19:56 Pulse 52 L 08/07/19 19:56 Resp 16 08/07/19 19:56 BP 139/86 08/07/19 19:56 Pulse Ox 97 08/07/19 19:56 - Orders/Labs/Meds Orders: Active Orders 24 hr Category Date Time Status EKG Documentation Completion [RC] ASDIRECTED Care 08/07/19 18:31 Active EKG 12 Lead [EK] Routine Ther 08/07/19 18:30 Ordered Labs: Laboratory Tests 08/07/19 08/07/19 08/07/19 Range/Units 18:40 18:40 18:40 WBC 5.5 (4.5-12.0) X10-3/uL RBC 4.19 L (4.30-5.75) x10(6)uL Hgb 13.2 L (13.5-17.8) g/dL Hct 39.1 (30.0-51.3) % MCV 93.3 (80-96) fL MCH 31.5 (27.7-33.6) pg MCHC 33.8 (32.2-35.4) g/dL RDW 12.3 (11.5-15.5) % Plt Count 256 (125-369) X10(3)uL MPV 6.7 L (7.4-10.4) fL Neut % (Auto) 51.7 (46-82) % Lymph % (Auto) 36.9 (13-37) % [place] % (Auto) 8.5 (4-12) % Eos % (Auto) 2 (1.0-5.0) % Baso % (Auto) 1 (0-2) % Neut # (Auto) 2.9 (1.6-8.3) # Lymph # (Auto) 2.0 (0.6-5.0) # [place] # (Auto) 0.5 (0.0-1.3) # Eos # (Auto) 0.1 (0.0-0.8) # Baso # (Auto) 0.0 (0.0-0.2) # Sodium 142 (135-145) mmol/L Potassium 4.3 (3.5-5.3) mmol/L Chloride 104 D (100-110) mmol/L Carbon Dioxide 27 (21-32) mmol/L BUN 17 (7-18) mg/dL Creatinine 0.9 (0.70-1.30) mg/dL Est Cr Clr Drug Dosing TNP Estimated GFR (MDRD) > 60 (>60) BUN/Creatinine Ratio 18.9 (9-20) Glucose 93 (80-116) mg/dL Calcium 9.1 (8.6-10.2) mg/dL Total Bilirubin 0.4 (0.1-1.3) mg/dL AST 22 D (5-25) IU/L ALT 30 D (12-36) U/L Alkaline Phosphatase 67 (56-112) IU/L Troponin I 10.3 (4.0-60.3) pg/mL Total Protein 7.5 (6.0-8.0) g/dL Albumin 3.7 (3.2-4.6) g/dL Globulin 3.8 g/dL Albumin/Globulin Ratio 1.0 Departure - Departure Time of Disposition: 19:35 Disposition: Home, Self-Care 01 Condition: Good Clinical Impression: Chest pain, Stable angina - Discharge Information Instructions: Angina, [id number] Referrals: Marlon Hollingsworth MD [Primary Care Provider] - Forms: ED Department Discharge Additional Instructions: please read discharge instructions on stable angina use your nitroglycerin as directed for chest pain follow up with your doctor if symptoms worsen or persist Sepsis Event Note - Evaluation Sepsis Screening Result: No Definite Risk - Focused Exam Date Exam was Performed: 08/08/19 Time Exam was Performed: 11:14 - My Orders Last 24 Hours: My Active Orders 08/07/19 18:30 EKG 12 Lead [EK] Routine 08/07/19 18:31 EKG Documentation Completion [RC] ASDIRECTED - Assessment/Plan Last 24 Hours: My Active Orders 08/07/19 18:30 EKG 12 Lead [EK] Routine 08/07/19 18:31 EKG Documentation Completion [RC] ASDIRECTED
[2019-08-07 19:57] VITALS: BP 139/86; PULSE 52
== END 2019-08-07 19:55 | disposition home or self-care (01) ==
LOC: FB.ED 17:32
DX: I20.8 Other forms of angina pectoris (principal); Z88.2 Allergy status to sulfonamides; Z88.0 Allergy status to penicillin; Z79.899 Other long term (current) drug therapy; Z79.82 Long term (current) use of aspirin
CPT/HCPCS: 36415; 80053; 84484; 85025; 93005; 99283; 99285-25

== ENCOUNTER 2019-09-13 18:21 | Emergency (ER) | payer MEDICARE, BC ==
[2019-09-13 20:16] VITALS: BP 145/89; PULSE 72
--- NOTE | 2019-09-13 20:17 | EDM.PDOC ---
ED HPI GENERAL MEDICAL PROBLEM - General Time Seen by Provider: 09/13/19 18:30 Source of Information: Reports: Patient History Limitations: Reports: No Limitations - History of Present Illness INITIAL COMMENTS - FREE TEXT/NARRATIVE: Hit on the Rt ferreira by a ladder. Sustained an abrasion. Bleeding,now has stopped. left leg Pain Score (Numeric/FACES): 3 - Related Data Allergies Allergy/AdvReac Type Severity Reaction Status Date / Time Penicillins Allergy Seizure Verified 09/14/19 07:03 Sulfa (Sulfonamide Allergy Hives Verified 09/14/19 07:03 Antibiotics) Home Meds: Home Meds Levothyroxine Sodium 112 mcg PO DAILY 03/07/13 [History] Calcium Carbonate/Vitamin D3 [Caltrate 600 Plus D3 Tablet] 2 each PO BID [History] Multivitamin [Multi-Day Vitamins] 1 cap PO DAILY 08/16/16 [History] buPROPion [buPROPion XL] 150 mg PO DAILY 01/28/18 [History] Aspirin [Lo-Dose Aspirin EC] 81 mg PO DAILY 02/01/18 [History] Furosemide [Lasix] 20 mg PO DAILY 02/01/18 [History] atorvaSTATin [Lipitor] 40 mg PO BEDTIME 02/01/18 [History] carvediloL [Coreg] 12.5 mg PO BIDMEALS 02/01/18 [History] Clopidogrel [Plavix] 75 mg PO DAILY 01/29/19 [History] Ketorolac [Acular 0.5% Ophth Soln] 1 drop OP ASDIRECTED 01/29/19 [History] Mirtazapine [Remeron] 30 mg PO BEDTIME 01/29/19 [History] Past Medical History HEENT History: Reports: Cataract, Glaucoma, Impaired Vision, Other (See Below) Other HEENT History: DRY EYES, POSTERIOR VITREOUS DETACHMENT Cardiovascular History: Reports: Afib, Arrhythmia, Blood Clots/VTE/DVT, CAD, Heart Failure, High Cholesterol, Hypertension, [place], Stents, Other (See Below) Other Cardiovascular History: hx a fib, had ablation, had 1 stent. ASHD, DIABETIC PERIPHERAL VASCULAR DISEASE. N-STEMI. AV IDALMIS RE-ENTRY TACHY. HYPOTENSION. Stent paced 2012 Respiratory History: Reports: Asthma, Pneumonia, Recurrent, Sleep Apnea, Other ( See Below) Other Respiratory History: HISTOPLASMOSIS PNEUMONIA Gastrointestinal History: Reports: Colon Polyp, GERD Genitourinary History: Reports: Urinary Incontinence Musculoskeletal History: Reports: Arthritis, Osteoarthritis, Other (See Below) Other Musculoskeletal History: Fracture of right knee with steel and screw placed. 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 Fx or 3 ribs posterior left side. Fx of 3 ribs anterior left side. CELLULITIS Neurological History: Reports: Concussion, Headaches, Chronic, Vertigo Psychiatric History: Reports: Anxiety, Depression, Panic Attack, Psych Hospitalization(s), Other (See Below) Other Psychiatric History: hx ETOH abuse, DELUSIONAL DISORDER Endocrine/Metabolic History: Reports: Hypothyroidism, Obesity/BMI 30+ Hematologic History: Reports: Anemia, Blood Transfusion(s), Transfusion Reaction Immunologic History: Reports: None Oncologic (Cancer) History: Reports: None Dermatologic History: Reports: Cellulitis, Venous Stasis Dermatitis - Infectious Disease History Infectious Disease History: Reports: Chicken Pox, Measles, Mumps Other Infectious Disease History: hx osteomyelitis R hip. - Past Surgical History Head Surgeries/Procedures: Reports: None HEENT Surgical History: Reports: Adenoidectomy, Eye Surgery, Laser Surgery, Oral Surgery, Tonsillectomy Other HEENT Surgeries/Procedures: laser surg on tear ducts bilat, Cardiovascular Surgical History: Reports: Cardiac Ablation, Coronary Artery Stent, Other (See Below) Other Cardiovascular Surgeries/Procedures: afib, CORONARY ANGIOPLASTY Respiratory Surgical History: Reports: None GI Surgical History: Reports: Bariatric Procedure, Cholecystectomy, Colonoscopy , Hernia Repair/Other, Other (See Below) Other GI Surgeries/Procedures: STOMACH SLEEVE Male Surgical History: Reports: Other (See Below) Other Male Surgeries/Procedures: LEFT HYDROCELE SPERMATOCELE Endocrine Surgical History: Reports: None Neurological Surgical History: Reports: None Musculoskeletal Surgical History: Reports: Carpal Tunnel, Hip Replacement, ORIF Other Musculoskeletal Surgeries/Procedures:: R hip replacement & fusion. R knee pinning. Fracture of right knee with steel and screw placed. RIGHT TIBIA REPAIR Oncologic Surgical History: Reports: None Social & Family History - Family History Family Medical History: Noncontributory GI: Reports: None - Caffeine Use Caffeine Use: Reports: Coffee Review of Systems - Review of Systems Review Of Systems: Comprehensive ROS is negative, except as noted in HPI. ED EXAM, GENERAL - Physical Exam Exam: See Below Exam Limited By: No Limitations General Appearance: Alert, WD/WN, No Apparent Distress Ears: Normal External Exam Nose: Normal Inspection Throat/Mouth: Normal Inspection Head: Atraumatic Neck: Normal Inspection Respiratory/Chest: No Respiratory Distress Extremities: Other (small skin abrasion Left ferreira) Course - Vital Signs Last Recorded V/S: Last Vital Signs Temp 98 F 09/13/19 18:40 Pulse 72 09/13/19 18:40 Resp 18 09/13/19 18:40 BP 145/89 H 09/13/19 18:40 Pulse Ox 97 09/13/19 18:40 Departure - Departure Time of Disposition: 07:09 Disposition: Home, Self-Care 01 Condition: Good Clinical Impression: Abrasion - Discharge Information Referrals: Marlon Hollingsworth MD [Primary Care Provider] - Forms: ED Department Discharge Sepsis Event Note - Focused Exam Date Exam was Performed: 09/15/19 Time Exam was Performed: 07:09 - Problem List & Annotations (1) Abrasion SNOMED Code(s): 652272187 Code(s): T14.8XXA - OTHER INJURY OF UNSPECIFIED BODY REGION, INITIAL ENCOUNTER Status: Acute - Problem List Review Problem List Initiated/Reviewed/Updated: Yes - Assessment/Plan Plan: Local wound care,dressing.Tdap
== END 2019-09-13 18:50 | disposition home or self-care (01) ==
LOC: FB.ED 18:21
DX: S80.812A Abrasion, left lower leg, initial encounter (principal); I25.10 Atherosclerotic heart disease of native coronary artery without angina pectoris; I48.91 Unspecified atrial fibrillation; I11.0 Hypertensive heart disease with heart failure; I50.9 Heart failure, unspecified; I25.2 Old myocardial infarction; E03.9 Hypothyroidism, unspecified; E66.9 Obesity, unspecified; F41.9 Anxiety disorder, unspecified; F32.9 Major depressive disorder, single episode, unspecified; Z79.899 Other long term (current) drug therapy; Z79.02 Long term (current) use of antithrombotics/antiplatelets; Z79.82 Long term (current) use of aspirin; Z95.5 Presence of coronary angioplasty implant and graft; Z88.0 Allergy status to penicillin; Z88.2 Allergy status to sulfonamides; Z68.35 Body mass index [BMI] 35.0-35.9, adult; W22.8XXA Striking against or struck by other objects, initial encounter
CPT/HCPCS: 99282

== ENCOUNTER 2019-10-13 04:34 | Emergency (ER) | payer MEDICARE, BC ==
[2019-10-13 04:56] VITALS: BP 123/87; PULSE 86
[2019-10-13] MEDS ORDERED: Diphtheria,Pertussis(Acell),Tetanus Vaccine 0.5 ML SDV IM ONE (06:16)
--- NOTE | 2019-10-13 06:16 | EDM.PDOC ---
ED HPI GENERAL MEDICAL PROBLEM - General Chief Complaint: General Stated Complaint: glass in foot Time Seen by Provider: 10/13/19 06:10 Source of Information: Reports: Patient - History of Present Illness INITIAL COMMENTS - FREE TEXT/NARRATIVE: presented to the ER with concerns for Foreign body sole of right Foot. Reports that he stepped on a piece of glass and could not get it out. Presented to the ER for further evaluation Onset: Today Duration: Hour(s): (3 hours) Right Foot Pain Score (Numeric/FACES): 3 - Related Data Allergies Allergy/AdvReac Type Severity Reaction Status Date / Time Penicillins Allergy Seizure Verified 10/13/19 04:42 Sulfa (Sulfonamide Allergy Hives Verified 10/13/19 04:42 Antibiotics) Home Meds: Home Meds Levothyroxine Sodium 112 mcg PO DAILY 03/07/13 [History] Calcium Carbonate/Vitamin D3 [Caltrate 600 Plus D3 Tablet] 2 each PO BID [History] Multivitamin [Multi-Day Vitamins] 1 cap PO DAILY 08/16/16 [History] buPROPion [buPROPion XL] 150 mg PO DAILY 01/28/18 [History] Aspirin [Lo-Dose Aspirin EC] 81 mg PO DAILY 02/01/18 [History] Furosemide [Lasix] 20 mg PO DAILY 02/01/18 [History] atorvaSTATin [Lipitor] 40 mg PO BEDTIME 02/01/18 [History] carvediloL [Coreg] 12.5 mg PO BIDMEALS 02/01/18 [History] Clopidogrel [Plavix] 75 mg PO DAILY 01/29/19 [History] Mirtazapine [Remeron] 30 mg PO BEDTIME 01/29/19 [History] Past Medical History HEENT History: Reports: Cataract, Glaucoma, Impaired Vision, Other (See Below) Other HEENT History: DRY EYES, POSTERIOR VITREOUS DETACHMENT Cardiovascular History: Reports: Afib, Arrhythmia, Blood Clots/VTE/DVT, CAD, Heart Failure, High Cholesterol, Hypertension, [place], Stents, Other (See Below) Other Cardiovascular History: hx a fib, had ablation, had 1 stent. ASHD, DIABETIC PERIPHERAL VASCULAR DISEASE. N-STEMI. AV IDALMIS RE-ENTRY TACHY. HYPOTENSION. Stent paced 2012 Respiratory History: Reports: Asthma, Pneumonia, Recurrent, Sleep Apnea, Other ( See Below) Other Respiratory History: HISTOPLASMOSIS PNEUMONIA Gastrointestinal History: Reports: Colon Polyp, GERD Genitourinary History: Reports: Urinary Incontinence Musculoskeletal History: Reports: Arthritis, Osteoarthritis, Other (See Below) Other Musculoskeletal History: Fracture of right knee with steel and screw placed. 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 Fx or 3 ribs posterior left side. Fx of 3 ribs anterior left side. CELLULITIS Neurological History: Reports: Concussion, Headaches, Chronic, Vertigo Psychiatric History: Reports: Anxiety, Depression, Panic Attack, Psych Hospitalization(s), Other (See Below) Other Psychiatric History: hx ETOH abuse, DELUSIONAL DISORDER Endocrine/Metabolic History: Reports: Hypothyroidism, Obesity/BMI 30+ Hematologic History: Reports: Anemia, Blood Transfusion(s), Transfusion Reaction Immunologic History: Reports: None Oncologic (Cancer) History: Reports: None Dermatologic History: Reports: Cellulitis, Venous Stasis Dermatitis - Infectious Disease History Infectious Disease History: Reports: Chicken Pox, Measles, Mumps Other Infectious Disease History: hx osteomyelitis R hip. - Past Surgical History Head Surgeries/Procedures: Reports: None HEENT Surgical History: Reports: Adenoidectomy, Eye Surgery, Laser Surgery, Oral Surgery, Tonsillectomy Other HEENT Surgeries/Procedures: laser surg on tear ducts bilat, Cardiovascular Surgical History: Reports: Cardiac Ablation, Coronary Artery Stent, Other (See Below) Other Cardiovascular Surgeries/Procedures: afib, CORONARY ANGIOPLASTY Respiratory Surgical History: Reports: None GI Surgical History: Reports: Bariatric Procedure, Cholecystectomy, Colonoscopy , Hernia Repair/Other, Other (See Below) Other GI Surgeries/Procedures: STOMACH SLEEVE Male Surgical History: Reports: Other (See Below) Other Male Surgeries/Procedures: LEFT HYDROCELE SPERMATOCELE Endocrine Surgical History: Reports: None Neurological Surgical History: Reports: None Musculoskeletal Surgical History: Reports: Carpal Tunnel, Hip Replacement, ORIF Other Musculoskeletal Surgeries/Procedures:: R hip replacement & fusion. R knee pinning. Fracture of right knee with steel and screw placed. RIGHT TIBIA REPAIR Oncologic Surgical History: Reports: None Social & Family History - Family History Family Medical History: Noncontributory GI: Reports: None - Tobacco Use Smoking Status *Q: Former Smoker Used Tobacco, but Quit: Yes Month/Year Tobacco Last Used: 09/2009 - Caffeine Use Caffeine Use: Reports: Coffee - Recreational Drug Use Recreational Drug Use: No ED ROS GENERAL - Review of Systems Review Of Systems: See Below Constitutional: Reports: No Symptoms HEENT: Reports: No Symptoms Respiratory: Reports: No Symptoms Cardiovascular: Reports: No Symptoms Endocrine: Reports: No Symptoms GI/Abdominal: Reports: No Symptoms : Reports: No Symptoms Musculoskeletal: Reports: Other (right foot pain) Neurological: Reports: No Symptoms Psychiatric: Reports: No Symptoms Hematologic/Lymphatic: Reports: No Symptoms Immunologic: Reports: No Symptoms ED EXAM, GENERAL - Physical Exam Exam: See Below Exam Limited By: No Limitations General Appearance: Alert, WD/WN, No Apparent Distress Eye Exam: Bilateral Eye: EOMI Ears: Normal External Exam, Normal Canal, Hearing Grossly Normal Ear Exam: Bilateral Ear: Auricle Normal, Canal Normal Nose: Normal Inspection Throat/Mouth: Normal Inspection Head: Atraumatic Neck: Normal Inspection Respiratory/Chest: No Respiratory Distress Cardiovascular: Normal Peripheral Pulses, Regular Rate, Rhythm, No JVD GI/Abdominal: Normal Bowel Sounds, Soft, No Distention Back Exam: Normal Inspection, Full Range of Motion Extremities: Normal Inspection, Normal Range of Motion Neurological: Alert, Oriented, CN II-XII Intact, Normal Cognition Psychiatric: Normal Affect, Normal Mood Skin Exam: Warm, Dry, Intact, Normal Color Lymphatic: No Adenopathy ED GENERAL MEDICAL PROCEDURES - Additional/Other Procedure(s) Other (Free Text) Procedure(s): Foreign Body removal sole of right Foot >>>Site was cleaned and irrigated, With the help of tweezers, suspected piece of glass was removed. Patient tolerated procedure very well. Course - Vital Signs Last Recorded V/S: Last Vital Signs Temp 36.6 C 10/13/19 04:54 Pulse 86 10/13/19 04:54 Resp 18 10/13/19 04:54 BP 123/87 10/13/19 04:54 Pulse Ox 96 10/13/19 04:54 - Orders/Labs/Meds Orders: Active Orders 24 hr Category Date Time Status Foot Comp Min 3V Rt [CR] Stat Exams 10/13/19 05:06 Taken Departure - Departure Time of Disposition: 06:15 Disposition: Home, Self-Care 01 Clinical Impression: Foreign body in foot - Discharge Information Referrals: Marlon Hollingsworth MD [Primary Care Provider] - Sepsis Event Note - Evaluation Sepsis Screening Result: No Definite Risk - Focused Exam Vital Signs: Vital Signs Temp Pulse Resp BP Pulse Ox 10/13/19 04:54 36.6 C 86 18 123/87 96 Date Exam was Performed: 10/13/19 Time Exam was Performed: 06:10 - My Orders Last 24 Hours: My Active Orders 10/13/19 05:06 Foot Comp Min 3V Rt [CR] Stat - Assessment/Plan Last 24 Hours: My Active Orders 10/13/19 05:06 Foot Comp Min 3V Rt [CR] Stat
== END 2019-10-13 06:33 | disposition home or self-care (01) ==
LOC: FB.ED 04:34
DX: S90.451A Superficial foreign body, right great toe, initial encounter (principal); I48.91 Unspecified atrial fibrillation; I25.10 Atherosclerotic heart disease of native coronary artery without angina pectoris; I11.0 Hypertensive heart disease with heart failure; I50.9 Heart failure, unspecified; I25.2 Old myocardial infarction; Z79.02 Long term (current) use of antithrombotics/antiplatelets; E11.51 Type 2 diabetes mellitus with diabetic peripheral angiopathy without gangrene; M19.90 Unspecified osteoarthritis, unspecified site; F41.9 Anxiety disorder, unspecified; F32.9 Major depressive disorder, single episode, unspecified; E03.9 Hypothyroidism, unspecified; E66.9 Obesity, unspecified; Z68.28 Body mass index [BMI] 28.0-28.9, adult; J45.909 Unspecified asthma, uncomplicated; Z95.5 Presence of coronary angioplasty implant and graft; Z88.0 Allergy status to penicillin; Z88.2 Allergy status to sulfonamides; Z79.82 Long term (current) use of aspirin; Z79.899 Other long term (current) drug therapy; Z23 Encounter for immunization
CPT/HCPCS: 73630-RT; 90471; 90715; 99283-25

== ENCOUNTER 2020-11-19 17:55 | Emergency (ER) | payer MEDICARE, BC ==
[2020-11-19] MEDS ORDERED: Sodium Chloride 0.9% 10 ML Syringe FLUSH PRN (17:59)
[2020-11-19] MEDS ORDERED: Lidocaine 2% Viscous Solution 15 ML Cup PO ONE (18:04)
[2020-11-19] MEDS ORDERED: Aspirin 81 MG Tab.Chew PO ONE (18:15)
[2020-11-19] MEDS ORDERED: LORazepam 2 MG/ML SDV IM STA (18:30)
[2020-11-19] MEDS ORDERED: LORazepam 1 MG Tab PO STA (19:05)
--- NOTE | 2020-11-19 19:09 | EDM.PDOC ---
ED HPI GENERAL MEDICAL PROBLEM - General Chief Complaint: Chest Pain Stated Complaint: CHEST PAIN Time Seen by Provider: 11/19/20 18:00 Source of Information: Reports: Patient History Limitations: Reports: No Limitations - History of Present Illness INITIAL COMMENTS - FREE TEXT/NARRATIVE: Patient presented to the ED because of Left upper abdominal pain that radiated to the left arm. He c/o of some chest tightness yesterday which went away. Denies any dyspnea, nausea,or diaphoresis. He is worried that he might have another WA. with his previous WA he had chest pressure that never went away. - Related Data Allergies Allergy/AdvReac Type Severity Reaction Status Date / Time Penicillins Allergy Seizure Verified 10/13/19 04:42 Sulfa (Sulfonamide Allergy Hives Verified 10/13/19 04:42 Antibiotics) Home Meds: Home Meds Levothyroxine Sodium 112 mcg PO DAILY 03/07/13 [History] Calcium Carbonate/Vitamin D3 [Caltrate 600 Plus D3 Tablet] 2 each PO BID 08/16/16 [History] Multivitamin [Multi-Day Vitamins] 1 cap PO DAILY 08/16/16 [History] buPROPion [buPROPion XL] 150 mg PO DAILY 01/28/18 [History] Aspirin [Lo-Dose Aspirin EC] 81 mg PO DAILY 02/01/18 [History] Furosemide [Lasix] 20 mg PO DAILY 02/01/18 [History] atorvaSTATin [Lipitor] 40 mg PO BEDTIME 02/01/18 [History] carvediloL [Coreg] 12.5 mg PO BIDMEALS 02/01/18 [History] Clopidogrel [Plavix] 75 mg PO DAILY 01/29/19 [History] Mirtazapine [Remeron] 30 mg PO BEDTIME 01/29/19 [History] Past Medical History HEENT History: Reports: Cataract, Glaucoma, Impaired Vision, Other (See Below) Other HEENT History: DRY EYES, POSTERIOR VITREOUS DETACHMENT Cardiovascular History: Reports: Afib, Arrhythmia, Blood Clots/VTE/DVT, CAD, Heart Failure, High Cholesterol, Hypertension, WA, Stents, Other (See Below) Other Cardiovascular History: hx a fib, had ablation, had 1 stent. ASHD, DIABETIC PERIPHERAL VASCULAR DISEASE. N-STEMI. AV IDALMIS RE-ENTRY TACHY. HYPOTENSION. Stent paced 2012 Respiratory History: Reports: Asthma, Pneumonia, Recurrent, Sleep Apnea, Other (See Below) Other Respiratory History: HISTOPLASMOSIS PNEUMONIA Gastrointestinal History: Reports: Colon Polyp, GERD Genitourinary History: Reports: Urinary Incontinence Musculoskeletal History: Reports: Arthritis, Osteoarthritis, Other (See Below) Other Musculoskeletal History: Fracture of right knee with steel and screw placed. 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 Fx or 3 ribs posterior left side. Fx of 3 ribs anterior left side. CELLULITIS Neurological History: Reports: Concussion, Headaches, Chronic, Vertigo Psychiatric History: Reports: Anxiety, Depression, Panic Attack, Psych Hospitalization(s), Other (See Below) Other Psychiatric History: hx ETOH abuse, DELUSIONAL DISORDER Endocrine/Metabolic History: Reports: Hypothyroidism, Obesity/BMI 30+ Hematologic History: Reports: Anemia, Blood Transfusion(s), Transfusion Reaction Immunologic History: Reports: None Oncologic (Cancer) History: Reports: None Dermatologic History: Reports: Cellulitis, Venous Stasis Dermatitis - Infectious Disease History Infectious Disease History: Reports: Chicken Pox, Measles, Mumps Other Infectious Disease History: hx osteomyelitis R hip. - Past Surgical History Head Surgeries/Procedures: Reports: None HEENT Surgical History: Reports: Adenoidectomy, Eye Surgery, Laser Surgery, Oral Surgery, Tonsillectomy Other HEENT Surgeries/Procedures: laser surg on tear ducts bilat, Cardiovascular Surgical History: Reports: Cardiac Ablation, Coronary Artery Stent, Other (See Below) Other Cardiovascular Surgeries/Procedures: afib, CORONARY ANGIOPLASTY Respiratory Surgical History: Reports: None GI Surgical History: Reports: Bariatric Procedure, Cholecystectomy, Colonoscopy, Hernia Repair/Other, Other (See Below) Other GI Surgeries/Procedures: STOMACH SLEEVE Male Surgical History: Reports: Other (See Below) Other Male Surgeries/Procedures: LEFT HYDROCELE SPERMATOCELE Endocrine Surgical History: Reports: None Neurological Surgical History: Reports: None Musculoskeletal Surgical History: Reports: Carpal Tunnel, Hip Replacement, ORIF Other Musculoskeletal Surgeries/Procedures:: R hip replacement & fusion. R knee pinning. Fracture of right knee with steel and screw placed. RIGHT TIBIA REPAIR Oncologic Surgical History: Reports: None Social & Family History - Family History Family Medical History: No Pertinent Family History GI: Reports: None - Tobacco Use Tobacco Use Status *Q: Never Tobacco User - Caffeine Use Caffeine Use: Reports: Coffee ED ROS GENERAL - Review of Systems Review Of Systems: See Below Constitutional: Reports: No Symptoms HEENT: Reports: No Symptoms Respiratory: Reports: No Symptoms Cardiovascular: Reports: Chest Pain Endocrine: Reports: No Symptoms GI/Abdominal: Reports: No Symptoms : Reports: No Symptoms Musculoskeletal: Reports: No Symptoms Skin: Reports: No Symptoms Neurological: Reports: No Symptoms Psychiatric: Reports: No Symptoms Hematologic/Lymphatic: Reports: No Symptoms ED EXAM, GENERAL - Physical Exam Exam: See Below Exam Limited By: No Limitations General Appearance: Alert, No Apparent Distress Eye Exam: Bilateral Eye: PERRL Ears: Normal External Exam, Normal Canal Nose: Normal Inspection, Normal Mucosa, No Blood Throat/Mouth: Normal Inspection, Normal Lips, Normal Teeth Head: Atraumatic, Normocephalic Neck: Normal Inspection, Supple, Non-Tender, Full Range of Motion Respiratory/Chest: No Respiratory Distress, Lungs Clear, Normal Breath Sounds, No Accessory Muscle Use, Chest Non-Tender Cardiovascular: Normal Peripheral Pulses, Regular Rate, Rhythm, No Edema, No Gallop, No JVD, No Murmur, No Rub GI/Abdominal: Normal Bowel Sounds, Soft, Non-Tender, No Organomegaly, No Distention, No Abnormal Bruit Back Exam: Normal Inspection, Full Range of Motion Extremities: Normal Inspection, Normal Range of Motion, Non-Tender #1 Interpretation EKG Date: 11/19/20 Time: 17:59 Rhythm: NSR Rate (Beats/Min): 64 Dinosaur: Normal P-Wave: Present QRS: Other (LAFB) ST-T: Normal QT: Normal NV/PQ Interval: 239 Comparison: No Change EKG Interpretation Comments: NSR RBBB and LAFB Course - Vital Signs Text/Narrative:: Lab/EKG/CXR result was reviewed and discussed with patient ASA 324 mg PO x1 He was chest pain free all throughout his stay in the ED Last Recorded V/S: Last Vital Signs Temp 37.3 C 11/19/20 17:55 Pulse 55 L 11/19/20 19:00 Resp 12 11/19/20 19:00 BP 134/77 11/19/20 19:00 Pulse Ox 95 11/19/20 19:00 - Orders/Labs/Meds Orders: Active Orders 24 hr Category Date Time Status EKG Documentation Completion [RC] ASDIRECTED Care 11/19/20 18:00 Active Chest 1V Frontal [CR] Stat Exams 11/19/20 17:59 Taken Sodium Chloride 0.9% [Saline Flush] Med 11/19/20 17:59 Active 10 ml FLUSH ASDIRECTED PRN EKG 12 Lead [EK] Routine Ther 11/19/20 17:59 Ordered Medication Orders Sodium Chloride (Sodium Chloride 0.9% 10 Ml Syringe) 10 ml FLUSH ASDIRECTED PRN PRN Reason: Keep Vein Open Labs: Laboratory Tests 11/19/20 11/19/20 11/19/20 Range/Units 18:00 18:05 18:05 WBC 5.8 (3.2-10.1) x10-3/uL RBC 4.15 (3.90-5.90) x10(6)uL Hgb 13.2 (12.9-17.7) g/dL Hct 39.0 (38.3-50.1) % MCV 94.1 (80.8-98.7) fL MCH 31.7 (27.0-33.3) pg MCHC 33.7 (28.7-35.3) g/dL RDW 12.8 (12.4-15.0) % Plt Count 257 (117-477) x10(3)uL MPV 6.9 (6.7-11.0) fL Neut % (Auto) 55.6 (40.3-71.8) % Lymph % (Auto) 33.2 (15.8-45.3) % Antelope % (Auto) 9.1 (5.5-15.2) % Eos % (Auto) 1.5 (0.1-6.8) % Baso % (Auto) 0.6 (0.3-3.8) % Neut # (Auto) 3.2 (1.7-6.9) x10-3/uL Lymph # (Auto) 1.9 (0.5-4.5) x10-3/uL Antelope # (Auto) 0.5 (0.0-1.2) x10-3/uL Eos # (Auto) 0.1 (0.0-0.6) x10-3/uL Baso # (Auto) 0.0 (0.0-0.3) x10-3/uL D-Dimer, Quantitative 0.25 (0.0-0.59) mg/LFEU Sodium (135-145) mmol/L Potassium (3.5-5.3) mmol/L Chloride (100-110) mmol/L Carbon Dioxide (21-32) mmol/L BUN (7-18) mg/dL Creatinine (0.70-1.30) mg/dL Est Cr Clr Drug Dosing Estimated GFR (MDRD) (>60) BUN/Creatinine Ratio (9-20) Glucose (80-116) mg/dL Calcium (8.6-10.2) mg/dL Total Bilirubin (0.1-1.3) mg/dL AST (5-25) IU/L ALT (12-36) U/L Alkaline Phosphatase (56-112) IU/L Troponin I (4.0-60.3) pg/mL NT-Pro-B Natriuret Pep (<=125) pg/mL Total Protein (6.0-8.0) g/dL Albumin (3.2-4.6) g/dL Globulin g/dL Albumin/Globulin Ratio Urine Color Yellow (YELLOW) Urine Appearance Clear (CLEAR) Urine pH 6.0 (5.0-6.5) Ur Specific [place] 1.015 (1.010-1.025) Urine Protein Negative (NEGATIVE) mg/dL Urine Glucose (UA) Normal (NORMAL) mg/dL Urine Ketones Negative (NEGATIVE) mg/dL Urine Occult Blood Negative (NEGATIVE) Urine Nitrite Negative (NEGATIVE) Urine Bilirubin Negative (NEGATIVE) Urine Urobilinogen Normal (NEGATIVE) mg/dL Ur Leukocyte Esterase Negative (NEGATIVE) Urine RBC 0-5 (0-5) Urine WBC 0-5 (0-5) Ur Squamous Epith Cells Occasional (NS,R,O) Urine Bacteria Few H (NS) 11/19/20 11/19/20 Range/Units 18:05 18:05 WBC (3.2-10.1) x10-3/uL RBC (3.90-5.90) x10(6)uL Hgb (12.9-17.7) g/dL Hct (38.3-50.1) % MCV (80.8-98.7) fL MCH (27.0-33.3) pg MCHC (28.7-35.3) g/dL RDW (12.4-15.0) % Plt Count (117-477) x10(3)uL MPV (6.7-11.0) fL Neut % (Auto) (40.3-71.8) % Lymph % (Auto) (15.8-45.3) % Antelope % (Auto) (5.5-15.2) % Eos % (Auto) (0.1-6.8) % Baso % (Auto) (0.3-3.8) % Neut # (Auto) (1.7-6.9) x10-3/uL Lymph # (Auto) (0.5-4.5) x10-3/uL Antelope # (Auto) (0.0-1.2) x10-3/uL Eos # (Auto) (0.0-0.6) x10-3/uL Baso # (Auto) (0.0-0.3) x10-3/uL D-Dimer, Quantitative (0.0-0.59) mg/LFEU Sodium 143 (135-145) mmol/L Potassium 4.2 (3.5-5.3) mmol/L Chloride 104 (100-110) mmol/L Carbon Dioxide 26 (21-32) mmol/L BUN 17 (7-18) mg/dL Creatinine 0.9 (0.70-1.30) mg/dL Est Cr Clr Drug Dosing TNP Estimated GFR (MDRD) > 60 (>60) BUN/Creatinine Ratio 18.9 (9-20) Glucose 98 (80-116) mg/dL Calcium 9.3 (8.6-10.2) mg/dL Total Bilirubin 0.5 (0.1-1.3) mg/dL AST 26 H D (5-25) IU/L ALT 43 H D (12-36) U/L Alkaline Phosphatase 64 (56-112) IU/L Troponin I 7.0 (4.0-60.3) pg/mL NT-Pro-B Natriuret Pep 132 H (<=125) pg/mL Total Protein 7.2 (6.0-8.0) g/dL Albumin 3.6 (3.2-4.6) g/dL Globulin 3.6 g/dL Albumin/Globulin Ratio 1.0 Urine Color (YELLOW) Urine Appearance (CLEAR) Urine pH (5.0-6.5) Ur Specific [place] (1.010-1.025) Urine Protein (NEGATIVE) mg/dL Urine Glucose (UA) (NORMAL) mg/dL Urine Ketones (NEGATIVE) mg/dL Urine Occult Blood (NEGATIVE) Urine Nitrite (NEGATIVE) Urine Bilirubin (NEGATIVE) Urine Urobilinogen (NEGATIVE) mg/dL Ur Leukocyte Esterase (NEGATIVE) Urine RBC (0-5) Urine WBC (0-5) Ur Squamous Epith Cells (NS,R,O) Urine Bacteria (NS) Meds: Medications Generic Name Dose Route Start Last Admin Trade Name Freq PRN Reason Stop Dose Admin Sodium Chloride 10 ml 11/19/20 17:59 Sodium Chloride 0.9% 10 Ml Syringe FLUSH ASDIRECTED PRN Keep Vein Open Discontinued Medications Generic Name Dose Route Start Last Admin Trade Name Freq PRN Reason Stop Dose Admin Lidocaine HCl 15 ml 11/19/20 18:04 Lidocaine 2% Viscous Solution 15 Ml Cup PO 11/19/20 18:05 ONETIME ONE Lorazepam 1 mg 11/19/20 18:30 Lorazepam 2 Mg/Ml Sdv IM 11/19/20 18:31 NOW STA Lorazepam 1 mg 11/19/20 19:05 11/19/20 19:13 Lorazepam 1 Mg Tab PO 11/19/20 19:06 1 mg NOW STA Administration Departure - Departure Time of Disposition: 19:10 Disposition: Home, Self-Care 01 Condition: Good Clinical Impression: Chest pain Instructions: Nonspecific Chest Pain, Adult, [id number] Referrals: Marlon Hollingsworth MD [Primary Care Provider] - Forms: ED Department Discharge Additional Instructions: Please read discharge instructions on non-specific chest pain Use your nitroglycerin if you have chest pressure and lay down in bed. If your chest pressure don't go away return to the ED anytime Follow up with your doctor this coming week Sepsis Event Note (ED) - Evaluation Sepsis Screening Result: No Definite Risk - Focused Exam Vital Signs: Vital Signs Temp Pulse Resp BP Pulse Ox 11/19/20 19:00 55 L 12 134/77 95 11/19/20 18:30 62 14 116/61 95 11/19/20 17:55 37.3 C 70 13 132/106 H 96 - My Orders Last 24 Hours: My Active Orders 11/19/20 17:59 Chest 1V Frontal [CR] Stat Sodium Chloride 0.9% [Saline Flush] 10 ml FLUSH ASDIRECTED PRN EKG 12 Lead [EK] Routine 11/19/20 18:00 EKG Documentation Completion [RC] ASDIRECTED - Assessment/Plan Last 24 Hours: My Active Orders 11/19/20 17:59 Chest 1V Frontal [CR] Stat Sodium Chloride 0.9% [Saline Flush] 10 ml FLUSH ASDIRECTED PRN EKG 12 Lead [EK] Routine 11/19/20 18:00 EKG Documentation Completion [RC] ASDIRECTED
[2020-11-19 19:27] VITALS: PULSE 55
[2020-11-19 19:30] VITALS: BP 106/58
== END 2020-11-19 19:25 | disposition home or self-care (01) ==
LOC: FB.ED 17:55
DX: R07.89 Other chest pain (principal); R10.12 Left upper quadrant pain; I48.91 Unspecified atrial fibrillation; I11.0 Hypertensive heart disease with heart failure; I50.9 Heart failure, unspecified; I25.10 Atherosclerotic heart disease of native coronary artery without angina pectoris; E78.00 Pure hypercholesterolemia, unspecified; I25.2 Old myocardial infarction; J45.909 Unspecified asthma, uncomplicated; M19.90 Unspecified osteoarthritis, unspecified site; E11.51 Type 2 diabetes mellitus with diabetic peripheral angiopathy without gangrene; E03.9 Hypothyroidism, unspecified; E66.9 Obesity, unspecified; Z68.38 Body mass index [BMI] 38.0-38.9, adult; Z88.0 Allergy status to penicillin; Z88.2 Allergy status to sulfonamides; Z79.82 Long term (current) use of aspirin; Z79.02 Long term (current) use of antithrombotics/antiplatelets; Z79.899 Other long term (current) drug therapy
CPT/HCPCS: 36415; 71045; 80053; 81001; 83880; 84484; 85025; 85379; 93005; 99285; A9270; J2060

== ENCOUNTER 2021-03-20 17:20 | Observation (INO) | payer MEDICARE, BC ==
--- NOTE | 2021-03-20 18:00 | EDM.PDOC ---
ED HPI GENERAL MEDICAL PROBLEM - General Chief Complaint: General Stated Complaint: HEART ISSUIES Time Seen by Provider: 03/20/21 17:48 Source of Information: Reports: Patient - History of Present Illness INITIAL COMMENTS - FREE TEXT/NARRATIVE: 70-year-old gentleman came to emergency department for evaluation of fatigue, weakness, falls, and chest pain/pressure. He has a significant cardiac history including atrial fibrillation he is on Coumadin. He states that he thinks he overdid it when he went hunting in the beginning of the month, approximately 2 weeks ago. During his time hunting he slipped and fell and grabbed a hold of a fence to help himself and discovered it was electrified. He had a shock across his heart and states that he has felt funny ever since. Tonight he fell in the bathroom and hurt his left flank on the toilet seat. He states that he had to have his help him up. Again this morning he was too weak to get up off the couch. He has not had any significant shortness of breath, no upper respiratory symptoms, and no sustained chest pain/pressure. He has not done anything specific to alleviate the symptoms. Back Pain Score (Numeric/FACES): 5 - Related Data Allergies Allergy/AdvReac Type Severity Reaction Status Date / Time Penicillins Allergy Seizure Verified 10/13/19 04:42 Sulfa (Sulfonamide Allergy Hives Verified 10/13/19 04:42 Antibiotics) Home Meds: Home Meds Calcium Carbonate/Vitamin D3 [Caltrate 600 Plus D3 Tablet] 2 each PO BID 08/05 06/23 [History] Multivitamin [Multi-Day Vitamins] 1 cap PO DAILY 08/16/16 [History] buPROPion [buPROPion XL] 150 mg PO DAILY 01/28/18 [History] Aspirin [Lo-Dose Aspirin EC] 81 mg PO DAILY 02/01/18 [History] Furosemide [Lasix] 20 mg PO DAILY 02/01/18 [History] carvediloL [Coreg] 12.5 mg PO BIDMEALS 02/01/18 [History] Mirtazapine [Remeron] 45 mg PO BEDTIME 01/29/19 [History] Levothyroxine 125 mcg PO ACBREAKFAST 03/20/21 [History] Rosuvastatin Calcium 10 mg PO DAILY 03/20/21 [History] Warfarin Sodium [Jantoven] 7.5 mg PO DAILY 03/20/21 [History] Past Medical History HEENT History: Reports: Cataract, Glaucoma, Impaired Vision, Other (See Below) Other HEENT History: DRY EYES, POSTERIOR VITREOUS DETACHMENT Cardiovascular History: Reports: Afib, Arrhythmia, Blood Clots/VTE/DVT, CAD, Heart Failure, High Cholesterol, Hypertension, [place], Stents, Other (See Below) Other Cardiovascular History: hx a fib, had ablation, had 1 stent. ASHD, DIABETIC PERIPHERAL VASCULAR DISEASE. N-STEMI. AV IDALMIS RE-ENTRY TACHY. HYPOTENSION. Stent paced 2012 Respiratory History: Reports: Asthma, Pneumonia, Recurrent, Sleep Apnea, Other (See Below) Other Respiratory History: HISTOPLASMOSIS PNEUMONIA Gastrointestinal History: Reports: Colon Polyp, GERD Genitourinary History: Reports: Urinary Incontinence Musculoskeletal History: Reports: Arthritis, Osteoarthritis, Other (See Below) Other Musculoskeletal History: Fracture of right knee with steel and screw placed. 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 Fx or 3 ribs posterior left side. Fx of 3 ribs anterior left side. CELLULITIS Neurological History: Reports: Concussion, Headaches, Chronic, Vertigo Psychiatric History: Reports: Anxiety, Depression, Panic Attack, Psych Hospitalization(s), Other (See Below) Other Psychiatric History: hx ETOH abuse, DELUSIONAL DISORDER Endocrine/Metabolic History: Reports: Hypothyroidism, Obesity/BMI 30+ Hematologic History: Reports: Anemia, Blood Transfusion(s), Transfusion Reaction Immunologic History: Reports: None Oncologic (Cancer) History: Reports: None Dermatologic History: Reports: Cellulitis, Venous Stasis Dermatitis - Infectious Disease History Infectious Disease History: Reports: Chicken Pox, Measles, Mumps Other Infectious Disease History: hx osteomyelitis R hip. - Past Surgical History Head Surgeries/Procedures: Reports: None HEENT Surgical History: Reports: Adenoidectomy, Eye Surgery, Laser Surgery, Oral Surgery, Tonsillectomy Other HEENT Surgeries/Procedures: laser surg on tear ducts bilat, Cardiovascular Surgical History: Reports: Cardiac Ablation, Coronary Artery Stent, Other (See Below) Other Cardiovascular Surgeries/Procedures: afib, CORONARY ANGIOPLASTY Respiratory Surgical History: Reports: None GI Surgical History: Reports: Bariatric Procedure, Cholecystectomy, Colonoscopy, Hernia Repair/Other, Other (See Below) Other GI Surgeries/Procedures: STOMACH SLEEVE Male Surgical History: Reports: Other (See Below) Other Male Surgeries/Procedures: LEFT HYDROCELE SPERMATOCELE Endocrine Surgical History: Reports: None Neurological Surgical History: Reports: None Musculoskeletal Surgical History: Reports: Carpal Tunnel, Hip Replacement, ORIF Other Musculoskeletal Surgeries/Procedures:: R hip replacement & fusion. R knee pinning. Fracture of right knee with steel and screw placed. RIGHT TIBIA REPAIR Oncologic Surgical History: Reports: None Social & Family History - Family History Family Medical History: No Pertinent Family History GI: Reports: None - Tobacco Use Tobacco Use Status *Q: Former Tobacco User Used Tobacco, but Quit: Yes Month/Year Tobacco Last Used: 2000 - Caffeine Use Caffeine Use: Reports: Soda ED ROS GENERAL - Review of Systems Review Of Systems: See Below Constitutional: Reports: Weakness, Fatigue HEENT: Reports: No Symptoms Respiratory: Reports: No Symptoms Cardiovascular: Reports: Dyspnea on Exertion, Edema Endocrine: Reports: No Symptoms GI/Abdominal: Reports: No Symptoms : Reports: No Symptoms Musculoskeletal: Reports: Back Pain Skin: Reports: Bruising Neurological: Reports: Difficulty Walking, Weakness Psychiatric: Reports: No Symptoms Hematologic/Lymphatic: Reports: Easy Bleeding, Easy Bruising, Other (Patient on chronic Coumadin therapy) Immunologic: Reports: No Symptoms ED EXAM, GENERAL - Physical Exam Exam: See Below Exam Limited By: No Limitations General Appearance: Alert, No Apparent Distress Eye Exam: Bilateral Eye: EOMI Head: Atraumatic, Normocephalic Neck: Normal Inspection Respiratory/Chest: Crackles Cardiovascular: Regular Rate, Rhythm, Other (Heart sounds are distant difficult to auscultate) Peripheral Pulses: 2+: Radial (L), Radial (R) GI/Abdominal: Normal Bowel Sounds, Soft, Non-Tender Back Exam: CVA Tenderness (L), Vertebral Tenderness Extremities: Pedal Edema Neurological: Alert, Oriented, CN II-XII Intact, Normal Cognition Psychiatric: Normal Affect, Normal Mood Skin Exam: Other (Bilateral lower extremity stasis dermatitis) Course - Vital Signs Text/Narrative:: Review of laboratory analysis shows a very mild elevation in BNP, troponins are negative, EKG shows no significant change from prior EKG earlier this year. Patient does not have chest pain. I reviewed these results with the patient. He admitted that he has been eating a very poor diet the last week or 2. Patient may have other viral illness. Consider a false negative Covid test and consider possible earlier infection with influenza or other virus. Patient is still weak he has difficulty standing and will be admitted to observation and evaluated tomorrow with OT/PT. I will give the patient a one-time IV bolus of 40 mg Lasix in the morning. She will continue with his home medical regimen including oral Lasix and Coumadin. Last Recorded V/S: Last Vital Signs Temp 37.0 C 03/20/21 17:41 Pulse 70 03/20/21 17:41 Resp 18 03/20/21 17:41 BP 124/74 03/20/21 17:41 Pulse Ox 95 03/20/21 17:41 - Orders/Labs/Meds Orders: Active Orders 24 hr Category Date Time Status Patient Status Manage Transfer [TRANSFER] Routine ADT 03/20/21 19:14 Active Patient Status [ADT] Routine ADT 03/20/21 19:17 Active Antiembolic Devices [RC] .Routine Care 03/20/21 19:18 Active Pulse Oximetry [RC] PRN Care 03/20/21 19:17 Active VTE/DVT Education [RC] Click to Edit Care 03/20/21 19:18 Active Vital Signs [RC] QSHIFT Care 03/20/21 19:17 Active OT Evaluation and Treatment [CONS] Routine Cons 03/21/21 Active PT Evaluation and Treatment [CONS] Routine Cons 03/21/21 Active Heart Healthy Diet [DIET] Diet 03/20/21 Breakfast Ordered INR,PT,PROTHROMBIN TIME [COAG] Stat Lab 03/21/21 Ordered Aspirin [Halfprin] Med 03/21/21 09:00 Active 81 mg PO DAILY Furosemide [Lasix] Med 03/21/21 09:00 Active 20 mg PO DAILY Furosemide [Lasix] Med 03/21/21 06:00 Active 40 mg IVPUSH DAILY Mirtazapine [Remeron] Med 03/20/21 21:00 Active 45 mg PO BEDTIME Rosuvastatin [Crestor] Med 03/21/21 09:00 Active 10 mg PO DAILY buPROPion [Wellbutrin XL] Med 03/21/21 09:00 Active 150 mg PO DAILY carvediloL [Coreg] Med 03/21/21 08:00 Active 12.5 mg PO BIDMEALS DVT/VTE Prophylaxis Reflex [OM.PC] Per Unit Routine Oth 03/20/21 19:17 Ordered Resuscitation Status Routine Resus Stat 03/20/21 19:17 Ordered EKG 12 Lead [EK] Routine Ther 03/20/21 17:55 Ordered Medication Orders Aspirin (Aspirin 81 Mg Tab.Ec) 81 mg PO DAILY [facility] Bupropion HCl (Bupropion 150 Mg Tab.Er) 150 mg PO DAILY [facility] Carvedilol (Carvedilol 3.125 Mg Tab) 12.5 mg PO BIDMEALS [facility] Furosemide (Furosemide 20 Mg Tab) 20 mg PO DAILY [facility] Furosemide (Furosemide 40 Mg/4 Ml Vial) 40 mg IVPUSH DAILY [facility] Stop: 03/21/21 07:00 Mirtazapine (Mirtazapine 30 Mg Tab) 45 mg PO BEDTIME [facility] Rosuvastatin Calcium (Rosuvastatin 10 Mg Tab) 10 mg PO DAILY [facility] Labs: Laboratory Tests 03/20/21 03/20/21 03/20/21 Range/Units 18:05 18:10 18:10 WBC 5.2 (3.2-10.1) x10-3/uL RBC 4.03 (3.90-5.90) x10(6)uL Hgb 12.5 L (12.9-17.7) g/dL Hct 37.4 L (38.3-50.1) % MCV 92.9 (80.8-98.7) fL MCH 31.1 (27.0-33.3) pg MCHC 33.4 (28.7-35.3) g/dL RDW 12.9 (12.4-15.0) % Plt Count 250 (117-477) x10(3)uL MPV 6.3 L (6.7-11.0) fL Neut % (Auto) 52.6 (40.3-71.8) % Lymph % (Auto) 34.8 (15.8-45.3) % [place] % (Auto) 9.5 (5.5-15.2) % Eos % (Auto) 2.4 (0.1-6.8) % Baso % (Auto) 0.7 (0.3-3.8) % Neut # (Auto) 2.7 (1.7-6.9) x10-3/uL Lymph # (Auto) 1.8 (0.5-4.5) x10-3/uL [place] # (Auto) 0.5 (0.0-1.2) x10-3/uL Eos # (Auto) 0.1 (0.0-0.6) x10-3/uL Baso # (Auto) 0.0 (0.0-0.3) x10-3/uL Sodium 139 (135-145) mmol/L Potassium 3.9 (3.5-5.3) mmol/L Chloride 104 (100-110) mmol/L Carbon Dioxide 27 (21-32) mmol/L BUN 12 (7-18) mg/dL Creatinine 1.0 (0.70-1.30) mg/dL Est Cr Clr Drug Dosing TNP Estimated GFR (MDRD) > 60 (>60) BUN/Creatinine Ratio 12.0 (9-20) Glucose 95 (80-116) mg/dL Calcium 8.8 (8.6-10.2) mg/dL Total Bilirubin 0.5 (0.1-1.3) mg/dL AST 26 H (5-25) IU/L ALT 34 D (12-36) U/L Alkaline Phosphatase 63 (56-112) IU/L Troponin I (4.0-60.3) pg/mL NT-Pro-B Natriuret Pep (<=125) pg/mL Total Protein 7.0 (6.0-8.0) g/dL Albumin 3.6 (3.2-4.6) g/dL Globulin 3.4 g/dL Albumin/Globulin Ratio 1.1 SARS-CoV-2 RNA ([facility]) Negative (NEGATIVE) 03/20/21 Range/Units 18:10 WBC (3.2-10.1) x10-3/uL RBC (3.90-5.90) x10(6)uL Hgb (12.9-17.7) g/dL Hct (38.3-50.1) % MCV (80.8-98.7) fL MCH (27.0-33.3) pg MCHC (28.7-35.3) g/dL RDW (12.4-15.0) % Plt Count (117-477) x10(3)uL MPV (6.7-11.0) fL Neut % (Auto) (40.3-71.8) % Lymph % (Auto) (15.8-45.3) % [place] % (Auto) (5.5-15.2) % Eos % (Auto) (0.1-6.8) % Baso % (Auto) (0.3-3.8) % Neut # (Auto) (1.7-6.9) x10-3/uL Lymph # (Auto) (0.5-4.5) x10-3/uL [place] # (Auto) (0.0-1.2) x10-3/uL Eos # (Auto) (0.0-0.6) x10-3/uL Baso # (Auto) (0.0-0.3) x10-3/uL Sodium (135-145) mmol/L Potassium (3.5-5.3) mmol/L Chloride (100-110) mmol/L Carbon Dioxide (21-32) mmol/L BUN (7-18) mg/dL Creatinine (0.70-1.30) mg/dL Est Cr Clr Drug Dosing Estimated GFR (MDRD) (>60) BUN/Creatinine Ratio (9-20) Glucose (80-116) mg/dL Calcium (8.6-10.2) mg/dL Total Bilirubin (0.1-1.3) mg/dL AST (5-25) IU/L ALT (12-36) U/L Alkaline Phosphatase (56-112) IU/L Troponin I 8.3 (4.0-60.3) pg/mL NT-Pro-B Natriuret Pep 245 H (<=125) pg/mL Total Protein (6.0-8.0) g/dL Albumin (3.2-4.6) g/dL Globulin g/dL Albumin/Globulin Ratio SARS-CoV-2 RNA ([place]) (NEGATIVE) Meds: Medications Generic Name Dose Route Start Last Admin Trade Name Freq PRN Reason Stop Dose Admin Aspirin 81 mg 03/21/21 09:00 Aspirin 81 Mg Tab.Ec PO DAILY [facility] Bupropion HCl 150 mg 03/21/21 09:00 Bupropion 150 Mg Tab.Er PO DAILY [facility] Carvedilol 12.5 mg 03/21/21 08:00 Carvedilol 3.125 Mg Tab PO BIDMEALS [facility] Furosemide 20 mg 03/21/21 09:00 Furosemide 20 Mg Tab PO DAILY [facility] Furosemide 40 mg 03/21/21 06:00 Furosemide 40 Mg/4 Ml Vial IVPUSH 03/21/21 07:00 DAILY [facility] Mirtazapine 45 mg 03/20/21 21:00 Mirtazapine 30 Mg Tab PO BEDTIME [facility] Rosuvastatin Calcium 10 mg 03/21/21 09:00 Rosuvastatin 10 Mg Tab PO DAILY [facility] Departure - Departure Time of Disposition: 19:31 Disposition: Refer to Observation Condition: Good Clinical Impression: Weakness, Acute exacerbation of CHF (congestive heart failure), Frequent falls - Discharge Information *PRESCRIPTION DRUG MONITORING PROGRAM REVIEWED*: Not Applicable *COPY OF PRESCRIPTION DRUG MONITORING REPORT IN PATIENT LIAM: Not Applicable Referrals: Marlon Hollingsworth MD [Primary Care Provider] - Forms: ED Department Discharge Sepsis Event Note (ED) - Evaluation Sepsis Screening Result: No Definite Risk - Focused Exam Vital Signs: Vital Signs Temp Pulse Resp BP Pulse Ox 03/20/21 17:41 37.0 C 70 18 124/74 95 - My Orders Last 24 Hours: My Active Orders 03/20/21 Breakfast Heart Healthy Diet [DIET] 03/20/21 17:55 EKG 12 Lead [EK] Routine 03/20/21 19:14 Patient Status Manage Transfer [TRANSFER] Routine 03/20/21 19:17 Patient Status [ADT] Routine Pulse Oximetry [RC] PRN Vital Signs [RC] QSHIFT DVT/VTE Prophylaxis Reflex [OM.PC] Per Unit Routine Resuscitation Status Routine 03/20/21 19:18 Antiembolic Devices [RC] .Routine VTE/DVT Education [RC] Click to Edit 03/20/21 21:00 Mirtazapine [Remeron] 45 mg PO BEDTIME 03/21/21 OT Evaluation and Treatment [CONS] Routine PT Evaluation and Treatment [CONS] Routine INR,PT,PROTHROMBIN TIME [COAG] Stat 03/21/21 06:00 Furosemide [Lasix] 40 mg IVPUSH DAILY 03/21/21 08:00 carvediloL [Coreg] 12.5 mg PO BIDMEALS 03/21/21 09:00 Aspirin [Halfprin] 81 mg PO DAILY Furosemide [Lasix] 20 mg PO DAILY Rosuvastatin [Crestor] 10 mg PO DAILY buPROPion [Wellbutrin XL] 150 mg PO DAILY - Assessment/Plan Last 24 Hours: My Active Orders 03/20/21 Breakfast Heart Healthy Diet [DIET] 03/20/21 17:55 EKG 12 Lead [EK] Routine 03/20/21 19:14 Patient Status Manage Transfer [TRANSFER] Routine 03/20/21 19:17 Patient Status [ADT] Routine Pulse Oximetry [RC] PRN Vital Signs [RC] QSHIFT DVT/VTE Prophylaxis Reflex [OM.PC] Per Unit Routine Resuscitation Status Routine 03/20/21 19:18 Antiembolic Devices [RC] .Routine VTE/DVT Education [RC] Click to Edit 03/20/21 21:00 Mirtazapine [Remeron] 45 mg PO BEDTIME 03/21/21 OT Evaluation and Treatment [CONS] Routine PT Evaluation and Treatment [CONS] Routine INR,PT,PROTHROMBIN TIME [COAG] Stat 03/21/21 06:00 Furosemide [Lasix] 40 mg IVPUSH DAILY 03/21/21 08:00 carvediloL [Coreg] 12.5 mg PO BIDMEALS 03/21/21 09:00 Aspirin [Halfprin] 81 mg PO DAILY Furosemide [Lasix] 20 mg PO DAILY Rosuvastatin [Crestor] 10 mg PO DAILY buPROPion [Wellbutrin XL] 150 mg PO DAILY
--- NOTE | 2021-03-20 18:39 | PCM.EKG ---
#1 Interpretation EKG Date: 03/20/21 Time: 18:07 EKG Interpretation Comments: Junctional escape rhythm, rate 63, interventricular conduction delay consistent with left bundle branch block, compared with EKG performed on 05/11/2020 there are no significant changes. Note that patient has been diagnosed with atrial fibrillation in the past and is on chronic Coumadin therapy for atrial fibrillation.
[2021-03-20] MEDS ORDERED: Mirtazapine 30 MG Tab PO SCH (21:00)
[2021-03-20] MEDS: Carvedilol 12.5 MG Tab **OWN MED PO SCH (21:23)
[2021-03-20] MEDS ORDERED: MIRTAZAPINE 45 MG PO SCH (21:30)
[2021-03-20] MEDS ORDERED: DOXYCYCLINE 100 MG PO SCH (21:45)
[2021-03-21] MEDS ORDERED: Furosemide 40 MG/4 ML VIAL IVPUSH SCH (06:00)
[2021-03-21] MEDS ORDERED: Sodium Chloride 0.9% 10 ML Syringe FLUSH PRN (06:17)
[2021-03-21] MEDS ORDERED: Carvedilol 3.125 MG Tab PO SCH (08:00)
[2021-03-21] MEDS ORDERED: Levothyroxine 125 MCG Tab *PTOM PO SCH (09:00)
[2021-03-21] MEDS ORDERED: Furosemide 20 MG Tab *PTOM PO SCH (09:00)
[2021-03-21] MEDS ORDERED: Aspirin 81 MG Tab.EC PO SCH (09:00)
[2021-03-21] MEDS ORDERED: buPROPion 150 MG Tab.ER *PTOM PO SCH (09:00)
[2021-03-21] MEDS ORDERED: Rosuvastatin 10 MG Tab PO SCH (09:00)
[2021-03-21] MEDS ORDERED: Carvedilol 12.5 MG Tab *PTOM PO SCH (09:00)
[2021-03-21] MEDS: Carvedilol 12.5 MG Tab **OWN MED PO SCH (09:06)
[2021-03-21] MEDS ORDERED: BARIATRIC MULTIVITAMIN PO SCH (10:30)
[2021-03-21] MEDS ORDERED: CALCIUM CITRATE PO SCH (10:30)
[2021-03-21] MEDS ORDERED: [UNRECOGNIZED DRUG - OTHER] PO SCH (10:30)
--- NOTE | 2021-03-21 11:59 | PCM.HP.2 ---
H&P History of Present Illness - General Date of Service: 03/21/21 Admit Problem/Dx: Admission Diagnosis/Problem Admission Diagnosis/Problem Weakness Source of Information: Patient History Limitations: Reports: No Limitations - History of Present Illness Initial Comments - Free Text/Narative: Jose presented to ER after sustained fall yesterday in his home. He had been deer hunting, came in with his boots with a lot of snow/slush on them went into bathroom and slipped on linoleum, hit the edge of toilet seat with his left flank, broke the seat. He did not hit his head or lose consciousness. He states he has been doing more walking in [place] for , and more sitting than usual. He feels he's more deconditioned and has membership at local gym. He states he was told by Cardiology, Dr Persaud that his heart was healed last year. He did have another fall a few weeks ago and ended up grabbing an electric fence as he went down, he felt a flutter in his left chest at the time. He states he has been feeling more weak since then. No fevers, chills, cough, sore throat, shortness of breath, chest pain, nausea, vomiting, dysuria, hematuria. He has chronic stasis dermatitis in his right leg. In ER: EKG was unchanged from previous. WBC 5.2, Hgb 12.5, BNP 245, Troponin 8.3. Cr 1.0, K 3.9. Covid negative. INR 2.60. He was very weak, required 2 person assist so was admitted for further evaluation and monitoring. Back Pain Score (Numeric/FACES): 5 - Related Data Allergies/Adverse Reactions: Allergies Allergy/AdvReac Type Severity Reaction Status Date / Time Penicillins Allergy Seizure Verified 10/13/19 04:42 Sulfa (Sulfonamide Allergy Hives Verified 10/13/19 04:42 Antibiotics) Home Medications: Home Meds Calcium Carbonate/Vitamin D3 [Caltrate 600 Plus D3 Tablet] 2 each PO BID 08/16/16 [History] Multivitamin [Multi-Day Vitamins] 2 cap PO BID 08/16/16 [History] buPROPion [buPROPion XL] 150 mg PO DAILY 01/28/18 [History] Aspirin [Lo-Dose Aspirin EC] 81 mg PO DAILY 02/01/18 [History] Furosemide [Lasix] 20 mg PO DAILY 02/01/18 [History] Mirtazapine [Remeron] 45 mg PO BEDTIME 01/29/19 [History] Doxycycline [Vibra-Tabs] 100 mg PO BEDTIME 03/20/21 [History] Levothyroxine 125 mcg PO ACBREAKFAST 03/20/21 [History] Rosuvastatin Calcium 10 mg PO BEDTIME 03/20/21 [History] Warfarin Sodium [Jantoven] 7.5 - 10 mg PO DAILY 03/20/21 [History] carvediloL [Carvedilol] 6.25 mg PO BEDTIME 03/21/21 [History] carvediloL [Carvedilol] 12.5 mg PO DAILY 03/21/21 [History] Past Medical History HEENT History: Reports: Cataract, Glaucoma, Impaired Vision, Other (See Below) Other HEENT History: DRY EYES, POSTERIOR VITREOUS DETACHMENT Cardiovascular History: Reports: Afib, Arrhythmia, Blood Clots/VTE/DVT, CAD, Heart Failure, High Cholesterol, Hypertension, VA, Pacemaker, Stents, Other (See Below) Other Cardiovascular History: hx a fib, had ablation, had 1 stent. ASHD, DIABETIC PERIPHERAL VASCULAR DISEASE. N-STEMI. AV IDALMIS RE-ENTRY TACHY. HYPOTENSION. Stent paced 2012 Respiratory History: Reports: Asthma, Pneumonia, Recurrent, Sleep Apnea, Other (See Below) Other Respiratory History: HISTOPLASMOSIS PNEUMONIA Gastrointestinal History: Reports: Colon Polyp, GERD Genitourinary History: Reports: Urinary Incontinence Musculoskeletal History: Reports: Arthritis, Osteoarthritis, Other (See Below) Other Musculoskeletal History: Fracture of right knee with steel and screw pl aced. 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 Fx or 3 ribs posterior left side. Fx of 3 ribs anterior left side. CELLULITIS Neurological History: Reports: Concussion, Headaches, Chronic, Vertigo Psychiatric History: Reports: Anxiety, Depression, Panic Attack, Psych Hospitalization(s), Other (See Below) Other Psychiatric History: hx ETOH abuse, DELUSIONAL DISORDER Endocrine/Metabolic History: Reports: Hypothyroidism, Obesity/BMI 30+ Hematologic History: Reports: Anemia, Blood Transfusion(s), Transfusion Reaction Immunologic History: Reports: None Oncologic (Cancer) History: Reports: None Dermatologic History: Reports: Cellulitis, Venous Stasis Dermatitis - Infectious Disease History Infectious Disease History: Reports: Chicken Pox, Measles, Mumps Other Infectious Disease History: hx osteomyelitis R hip. - Past Surgical History Head Surgeries/Procedures: Reports: None HEENT Surgical History: Reports: Adenoidectomy, Eye Surgery, Laser Surgery, Oral Surgery, Tonsillectomy Other HEENT Surgeries/Procedures: laser surg on tear ducts bilat, Cardiovascular Surgical History: Reports: Cardiac Ablation, Coronary Artery Stent, Other (See Below) Other Cardiovascular Surgeries/Procedures: afib, CORONARY ANGIOPLASTY Respiratory Surgical History: Reports: None GI Surgical History: Reports: Bariatric Procedure, Cholecystectomy, Colonoscopy, Hernia Repair/Other, Other (See Below) Other GI Surgeries/Procedures: STOMACH SLEEVE Male Surgical History: Reports: Other (See Below) Other Male Surgeries/Procedures: LEFT HYDROCELE SPERMATOCELE Endocrine Surgical History: Reports: None Neurological Surgical History: Reports: None Musculoskeletal Surgical History: Reports: Carpal Tunnel, Hip Replacement, ORIF Other Musculoskeletal Surgeries/Procedures:: R hip replacement & fusion. R knee pinning. Fracture of right knee with steel and screw placed. RIGHT TIBIA REPAIR Oncologic Surgical History: Reports: None Social & Family History - Family History Family Medical History: No Pertinent Family History GI: Reports: None - Tobacco Use Tobacco Use Status *Q: Former Tobacco User Used Tobacco, but Quit: Yes Month/Year Tobacco Last Used: 2000 Second Hand Smoke Exposure: No - Caffeine Use Caffeine Use: Reports: Coffee, Soda - Recreational Drug Use Recreational Drug Use: No H&P Review of Systems - Review of Systems: Review Of Systems: Comprehensive ROS is negative, except as noted in HPI. Exam - Exam Exam: See Below - Vital Signs Vital Signs: Last Vital Signs Temp 98.6 F 03/21/21 08:00 Pulse 73 03/21/21 08:59 Resp 18 03/21/21 08:00 BP 122/66 03/21/21 08:59 Pulse Ox 95 03/20/21 23:58 Weight: 271 lb 7 oz - Exam General: Alert, Oriented, Cooperative HEENT: PERRLA, Conjunctiva Clear, EOMI, Hearing Intact, Mucosa Moist & [place] Neck: Trachea Midline Lungs: Clear to Auscultation, Normal Respiratory Effort Cardiovascular: Regular Rate, Regular Rhythm GI/Abdominal Exam: Normal Bowel Sounds, Soft, Non-Tender, No Distention, Other (Large ecchymosis to left flank) (Male) Exam: Deferred Rectal (Males) Exam: Deferred Extremities: Normal Capillary Refill, Pedal Edema (1+ BLE) Peripheral Pulses: 2+: Radial (L), Radial (R), Posterior Tibial (L), Posterior Tibial (R), Dorsalis Pedis (L), Dorsalis Pedis (R) Skin: Warm, Dry, Intact, Ecchymosis (Left flank), Other (Stasis dermatitis RLE) Neurological: Cranial Nerves Intact, Normal Speech, Normal Tone - Patient Data Lab Results Last 24 hrs: Laboratory Results - last 24 hr 03/20/21 03/20/21 03/20/21 Range/Units 18:05 18:10 18:10 WBC 5.2 (3.2-10.1) x10-3/uL RBC 4.03 (3.90-5.90) x10(6)uL Hgb 12.5 L (12.9-17.7) g/dL Hct 37.4 L (38.3-50.1) % MCV 92.9 (80.8-98.7) fL MCH 31.1 (27.0-33.3) pg MCHC 33.4 (28.7-35.3) g/dL RDW 12.9 (12.4-15.0) % Plt Count 250 (117-477) x10(3)uL MPV 6.3 L (6.7-11.0) fL Neut % (Auto) 52.6 (40.3-71.8) % Lymph % (Auto) 34.8 (15.8-45.3) % Craven % (Auto) 9.5 (5.5-15.2) % Eos % (Auto) 2.4 (0.1-6.8) % Baso % (Auto) 0.7 (0.3-3.8) % Neut # (Auto) 2.7 (1.7-6.9) x10-3/uL Lymph # (Auto) 1.8 (0.5-4.5) x10-3/uL Craven # (Auto) 0.5 (0.0-1.2) x10-3/uL Eos # (Auto) 0.1 (0.0-0.6) x10-3/uL Baso # (Auto) 0.0 (0.0-0.3) x10-3/uL PT (9.0-11.1) sec INR (1.00-1.24) Sodium 139 (135-145) mmol/L Potassium 3.9 (3.5-5.3) mmol/L Chloride 104 (100-110) mmol/L Carbon Dioxide 27 (21-32) mmol/L BUN 12 (7-18) mg/dL Creatinine 1.0 (0.70-1.30) mg/dL Est Cr Clr Drug Dosing TNP Estimated GFR (MDRD) > 60 (>60) BUN/Creatinine Ratio 12.0 (9-20) Glucose 95 (80-116) mg/dL Calcium 8.8 (8.6-10.2) mg/dL Total Bilirubin 0.5 (0.1-1.3) mg/dL AST 26 H (5-25) IU/L ALT 34 D (12-36) U/L Alkaline Phosphatase 63 (56-112) IU/L Troponin I (4.0-60.3) pg/mL NT-Pro-B Natriuret Pep (<=125) pg/mL Total Protein 7.0 (6.0-8.0) g/dL Albumin 3.6 (3.2-4.6) g/dL Globulin 3.4 g/dL Albumin/Globulin Ratio 1.1 SARS-CoV-2 RNA ([place]IE) Negative (NEGATIVE) 03/20/21 03/21/21 Range/Units 18:10 06:15 WBC (3.2-10.1) x10-3/uL RBC (3.90-5.90) x10(6)uL Hgb (12.9-17.7) g/dL Hct (38.3-50.1) % MCV (80.8-98.7) fL MCH (27.0-33.3) pg MCHC (28.7-35.3) g/dL RDW (12.4-15.0) % Plt Count (117-477) x10(3)uL MPV (6.7-11.0) fL Neut % (Auto) (40.3-71.8) % Lymph % (Auto) (15.8-45.3) % Craven % (Auto) (5.5-15.2) % Eos % (Auto) (0.1-6.8) % Baso % (Auto) (0.3-3.8) % Neut # (Auto) (1.7-6.9) x10-3/uL Lymph # (Auto) (0.5-4.5) x10-3/uL Craven # (Auto) (0.0-1.2) x10-3/uL Eos # (Auto) (0.0-0.6) x10-3/uL Baso # (Auto) (0.0-0.3) x10-3/uL PT 26.3 H (9.0-11.1) sec INR 2.60 H (1.00-1.24) Sodium (135-145) mmol/L Potassium (3.5-5.3) mmol/L Chloride (100-110) mmol/L Carbon Dioxide (21-32) mmol/L BUN (7-18) mg/dL Creatinine (0.70-1.30) mg/dL Est Cr Clr Drug Dosing Estimated GFR (MDRD) (>60) BUN/Creatinine Ratio (9-20) Glucose (80-116) mg/dL Calcium (8.6-10.2) mg/dL Total Bilirubin (0.1-1.3) mg/dL AST (5-25) IU/L ALT (12-36) U/L Alkaline Phosphatase (56-112) IU/L Troponin I 8.3 (4.0-60.3) pg/mL NT-Pro-B Natriuret Pep 245 H (<=125) pg/mL Total Protein (6.0-8.0) g/dL Albumin (3.2-4.6) g/dL Globulin g/dL Albumin/Globulin Ratio SARS-CoV-2 RNA ([place]IE) (NEGATIVE) Result Diagrams: 03/20/21 18:10 03/20/21 18:10 Sepsis Event Note - Evaluation Sepsis Screening Result: No Definite Risk - Focused Exam Vital Signs: Vital Signs Temp Pulse Pulse Resp BP BP Pulse Ox 03/21/21 08:59 73 122/66 03/21/21 08:00 98.6 F 73 18 122/68 03/20/21 23:58 98.5 F 56 L 18 101/52 L 95 *Q Meaningful Use (ADM) - VTE *Q VTE Mechanical Contraindications *Q: At Risk for Falls - Problem List (1) Acute exacerbation of CHF (congestive heart failure) SNOMED Code(s): 277691180, 09609638329382 ICD Code: I50.9 - HEART FAILURE, UNSPECIFIED Status: Acute Current Visit: Yes Problem Details: BNP 245, Chest x-ray ordered. (2) Frequent falls SNOMED Code(s): 937746110 ICD Code: R29.6 - REPEATED FALLS Status: Acute Current Visit: Yes (3) Weakness SNOMED Code(s): 78711437 ICD Code: R53.1 - WEAKNESS Status: Acute Current Visit: Yes (4) "Fall on same level from slipping, tripping or stumbling " SNOMED Code(s): 744680077 ICD Code: W01.0XXA - FALL SAME LEV FROM SLIP/TRIP W/O STRIKE AGAINST OBJECT, INIT Status: Acute Current Visit: No (5) Abrasion SNOMED Code(s): 288046299 ICD Code: T14.8XXA - OTHER INJURY OF UNSPECIFIED BODY REGION, INITIAL ENCOUNTER Status: Acute Current Visit: No (6) Bradycardia on ECG SNOMED Code(s): 030644894 ICD Code: R00.1 - BRADYCARDIA, UNSPECIFIED Status: Acute Current Visit: No (7) History of atrial fibrillation SNOMED Code(s): 596978408 ICD Code: Z86.79 - PERSONAL HISTORY OF OTHER DISEASES OF THE CIRCULATORY SYSTEM Status: Chronic Current Visit: Yes (8) History of non-ST elevation myocardial infarction (NSTEMI) SNOMED Code(s): 729103187 ICD Code: I25.2 - OLD MYOCARDIAL INFARCTION Status: Chronic Current Visit: Yes (9) Hypothyroidism SNOMED Code(s): 57082170 ICD Code: E03.9 - HYPOTHYROIDISM, UNSPECIFIED Status: Chronic Current Visit: Yes (10) Hyperlipidemia SNOMED Code(s): 22412921 ICD Code: E78.5 - HYPERLIPIDEMIA, UNSPECIFIED Status: Chronic Current Visit: Yes Problem List Initiated/Reviewed/Updated: Yes Orders Last 24hrs: Active Orders 24 hr Category Date Time Status Patient Status [ADT] Routine ADT 03/20/21 19:17 Active Antiembolic Devices [RC] .Routine Care 03/20/21 19:18 Active Pulse Oximetry [RC] PRN Care 03/20/21 19:17 Active VTE/DVT Education [RC] Click to Edit Care 03/20/21 19:18 Active Vital Signs [RC] QSHIFT Care 03/20/21 19:17 Active OT Evaluation and Treatment [CONS] Routine Cons 03/21/21 Active PT Evaluation and Treatment [CONS] Routine Cons 03/21/21 Active INR,PT,PROTHROMBIN TIME [COAG] DAILY Lab 03/22/21 06:00 Ordered Aspirin [Halfprin] Med 03/21/21 09:00 Active 81 mg PO DAILY Doxycycline [Vibra-Tabs] Med 03/20/21 21:45 Active 100 mg PO BEDTIME Furosemide [Lasix] Med 03/21/21 09:00 Active 20 mg PO DAILY Levothyroxine Med 03/21/21 09:00 Active 125 mcg PO DAILY@0600 Non-Formulary Medication [NF Drug] Med 03/21/21 10:30 Active 2 each PO BID Non-Formulary Medication [NF Drug] Med 03/21/21 10:30 Active 2 each PO BID Patient's Own Medication [Ptom] Med 03/20/21 21:30 Active 1 each PO BEDTIME Rosuvastatin [Crestor] Med 03/20/21 21:30 Active 10 mg PO BEDTIME Sodium Chloride 0.9% [Saline Flush] Med 03/21/21 06:17 Active 10 ml FLUSH ASDIRECTED PRN Warfarin Sliding Scale [Coumadin Sliding Scale] Med 03/21/21 16:00 Pending 1 each PO 1600 Warfarin [Coumadin] Med 03/21/21 16:00 Once 10 mg PO ONETIME ONE buPROPion [Wellbutrin XL] Med 03/21/21 09:00 Active 150 mg PO DAILY carvediloL [Coreg] Med 03/21/21 09:00 Active 6.25 mg PO BIDMEALS DVT/VTE Prophylaxis Reflex [OM.PC] Per Unit Routine Oth 03/20/21 19:17 Ordered Resuscitation Status Routine Resus Stat 03/20/21 19:17 Ordered EKG 12 Lead [EK] Routine Ther 03/20/21 17:55 Ordered Medication Orders Aspirin (Aspirin 81 Mg Tab.Ec) 81 mg PO DAILY [facility] Last Admin: 03/21/21 08:59 Dose: 81 mg Documented by: JOANIE Bupropion HCl (Bupropion 150 Mg Tab.Er *Ptom*) 150 mg PO DAILY [facility] Last Admin: 03/21/21 09:00 Dose: 150 mg Documented by: JOANIE Carvedilol (Carvedilol 12.5 Mg Tab *Ptom) 6.25 mg PO BIDMEALS [facility] Last Admin: 03/21/21 08:59 Dose: 6.25 mg Documented by: JOANIE Doxycycline Hyclate (Doxycycline 100 Mg Tab Own Med) 100 mg PO BEDTIME [facility] Last Admin: 03/20/21 22:03 Dose: 100 mg Documented by: SAUL Furosemide (Furosemide 20 Mg Tab *Ptom*) 20 mg PO DAILY [facility] Last Admin: 03/21/21 08:59 Dose: 20 mg Documented by: JOANIE Levothyroxine Sodium (Levothyroxine 125 Mcg Tab *Ptom*) 125 mcg PO DAILY@0600 [facility] Last Admin: 03/21/21 08:59 Dose: 125 mcg Documented by: JOANIE Bariatric (Multivitamin *Ptom*) 2 each PO BID [facility] Last Admin: 03/21/21 10:34 Dose: 2 each Documented by: JOANIE Calcium Citrate +D (400/500 *Ptom*) 2 each PO BID [facility] Last Admin: 03/21/21 10:35 Dose: 2 each Documented by: JOANIE Mirtazapine 45 Mg (Tab Own Med) 1 each PO BEDTIME [facility] Last Admin: 03/20/21 21:24 Dose: Not Given Documented by: SAUL Rosuvastatin Calcium (Rosuvastatin 10 Mg Tab Own Med) 10 mg PO BEDTIME [facility] Last Admin: 03/20/21 21:24 Dose: 10 mg Documented by: SAUL Sodium Chloride (Sodium Chloride 0.9% 10 Ml Syringe) 10 ml FLUSH ASDIRECTED PRN PRN Reason: Flush Last Admin: 03/21/21 06:11 Dose: 10 ml Documented by: SAUL Warfarin Sodium (Warfarin Sliding Scale) 1 each PO 1600 [facility] Warfarin Sodium (Warfarin 5 Mg Tab *Ptom*) 10 mg PO ONETIME ONE Stop: 03/21/21 16:01 Assessment/Plan Comment:: 1. Admit for observation after fall, possible CHF exacerbation, bradycardia. 2. Fall/weakness: PT/OT evaluate & treat. 3. Acute CHF: BNP 245, elevated from previous. CXR, 2 views. Look at [place] records to see if he has Echo within the last 2 years. Lasix 40 mg IV x 1, 20 mg po daily. Hypotensive after Coreg 12.5 mg dose last night, dropped from 146 to 101, SBP 122 this morning so dose cut to 6.25. He states he takes whole tab in am and 1/2 tab in evening. Decrease Coreg dose to 6.25 mg bid while here, continue to monitor. 4. Hypothyroidism: continue Levothyroxine 125 mg daily. 5. Diet: Heart Healthy. 6. Activity: up with assistance & up to chair. 7. DVT prophylaxis: Therapeutic on Coumadin. Pharmacy to dose. 8. CODE STATUS: FULL. 9. Disposition: anticipate 48 hours to monitor BP/heart rates, PT/OT, home with family. - Mortality Measure Prognosis:: Good
--- NOTE | 2021-03-21 13:46 | CR ---
INDICATION: Short of breath. CHEST, TWO VIEWS: Two PA views and a lateral view of the chest, 03/21/21, were compared with 11/19/20 and 01/28/18. The heart appeared to be normal in size and shape, but there was slight prominence at the left ventricular contour suggesting slight left ventricular enlargement compared with previous studies. The aorta is tortuous with calcification in the arch. Bony structures are fairly intact. Flattened diaphragm leaves, prominent AP diameter and hyperaeration, as well as interdigitation of the right hemidiaphragm leaf suggests COPD. What appear to be granulomas are scattered about the lungs and appear to have been present previously. A definite active infiltrate or effusion was not identified. Interstitial markings are slightly prominent, suggesting the possibility of mild interstitial fibrosis, although other etiology cannot be excluded. IMPRESSION: 1. No definite acute process. 2. COPD. 3. ASHD. 4. Mild pulmonary fibrosis. MTDD
[2021-03-21] MEDS ORDERED: Warfarin Sliding Scale PO SCH (16:00)
[2021-03-21] MEDS ORDERED: Warfarin 5 MG Tab *PTOM PO ONE (16:00)
[2021-03-21 16:30] VITALS: BP 128/60; PULSE 70
== END 2021-03-21 17:00 | disposition home or self-care (01) ==
LOC: FB.ED 17:20 → FB.MS 19:20
PROVIDERS: ADMIT Student in an Organized Health Care Education/Training Program; ATTEND Family Medicine
DX: R53.1 Weakness (principal); I25.10 Atherosclerotic heart disease of native coronary artery without angina pectoris; I11.0 Hypertensive heart disease with heart failure; I50.9 Heart failure, unspecified; E78.00 Pure hypercholesterolemia, unspecified; I25.2 Old myocardial infarction; E11.51 Type 2 diabetes mellitus with diabetic peripheral angiopathy without gangrene; G47.30 Sleep apnea, unspecified; E03.9 Hypothyroidism, unspecified; E66.9 Obesity, unspecified; R29.6 Repeated falls; Z20.822 Contact with and (suspected) exposure to COVID-19; W01.0XXA Fall on same level from slipping, tripping and stumbling without subsequent striking against object, initial encounter; Z79.899 Other long term (current) drug therapy; Z79.82 Long term (current) use of aspirin; Z79.01 Long term (current) use of anticoagulants; Z79.890 Hormone replacement therapy; Z98.890 Other specified postprocedural states; Z87.891 Personal history of nicotine dependence
CPT/HCPCS: 36415; 71046; 80053; 83880; 84484; 85025; 85610; 93005; 96374; 97161-GP; 97165-GO; 99285-25; A9270-GY; G0378; J1940; U0002

== ENCOUNTER 2021-04-19 10:20 | Emergency (ER) | payer MEDICARE, BC ==
[2021-04-19] MEDS ORDERED: Acetaminophen 500 MG Tab PO ONE (11:01)
--- NOTE | 2021-04-19 12:48 | EDM.PDOC ---
ED HPI GENERAL MEDICAL PROBLEM - General Chief Complaint: Back Pain or Injury Stated Complaint: FALL, BACK PAIN Time Seen by Provider: 04/19/21 10:40 Source of Information: Reports: Patient History Limitations: Reports: No Limitations - History of Present Illness INITIAL COMMENTS - FREE TEXT/NARRATIVE: Patient slipped and fell on the ice last night and c/o neck,back and rt shoulder pain. There was no head injury or LOC after the fall. denies having any headache, nausea or vomiting. Posterior neck, R shoulder, R rib, mid-back Pain Score (Numeric/FACES): 5 - Related Data Allergies Allergy/AdvReac Type Severity Reaction Status Date / Time Penicillins Allergy Seizure Verified 04/19/21 10:39 Sulfa (Sulfonamide Allergy Hives Verified 04/19/21 10:39 Antibiotics) Home Meds: Home Meds Calcium Carbonate/Vitamin D3 [Caltrate 600 Plus D3 Tablet] 2 each PO BID 08/05 06/23 [History] Multivitamin [Multi-Day Vitamins] 2 cap PO BID 08/16/16 [History] buPROPion [buPROPion XL] 150 mg PO DAILY 01/28/18 [History] Aspirin [Lo-Dose Aspirin EC] 81 mg PO DAILY 02/01/18 [History] Furosemide [Lasix] 20 mg PO DAILY 02/01/18 [History] Mirtazapine [Remeron] 45 mg PO BEDTIME 01/29/19 [History] Doxycycline [Vibra-Tabs] 100 mg PO BEDTIME 03/20/21 [History] Levothyroxine 125 mcg PO ACBREAKFAST 03/20/21 [History] Rosuvastatin Calcium 10 mg PO BEDTIME 03/20/21 [History] Warfarin Sodium [Jantoven] 10 mg PO SUMOWETHSA 03/20/21 [History] carvediloL [Carvedilol] 6.25 mg PO BID #30 tab 03/21/21 [Rx] Warfarin [Coumadin] 7.5 mg PO TUFR 04/19/21 [History] Past Medical History HEENT History: Reports: Cataract, Glaucoma, Impaired Vision, Other (See Below) Other HEENT History: DRY EYES, POSTERIOR VITREOUS DETACHMENT Cardiovascular History: Reports: Afib, Arrhythmia, Blood Clots/VTE/DVT, CAD, Heart Failure, High Cholesterol, Hypertension, IA, Pacemaker, Stents, Other (See Below) Other Cardiovascular History: hx a fib, had ablation, had 1 stent. ASHD, DIABETIC PERIPHERAL VASCULAR DISEASE. N-STEMI. AV IDALMIS RE-ENTRY TACHY. HYPOTENSION. Stent paced 2012 Respiratory History: Reports: Asthma, Pneumonia, Recurrent, Sleep Apnea, Other (See Below) Other Respiratory History: HISTOPLASMOSIS PNEUMONIA Gastrointestinal History: Reports: Colon Polyp, GERD Genitourinary History: Reports: Urinary Incontinence Musculoskeletal History: Reports: Arthritis, Osteoarthritis, Other (See Below) Other Musculoskeletal History: Fracture of right knee with steel and screw placed. 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 Fx or 3 ribs posterior left side. Fx of 3 ribs anterior left side. CELLULITIS Neurological History: Reports: Concussion, Headaches, Chronic, Vertigo Psychiatric History: Reports: Addiction, Anxiety, Depression, Panic Attack, Psych Hospitalization(s), Other (See Below) Other Psychiatric History: hx ETOH abuse, DELUSIONAL DISORDER Endocrine/Metabolic History: Reports: Hypothyroidism, Obesity/BMI 30+ Hematologic History: Reports: Anemia, Anticoagulation Therapy, Blood Transfusion(s), Transfusion Reaction Immunologic History: Reports: None Oncologic (Cancer) History: Reports: Basal Cell Carcinoma, Malignant Melanoma Dermatologic History: Reports: Cellulitis, Venous Stasis Dermatitis - Infectious Disease History Infectious Disease History: Reports: Chicken Pox, Measles, Mumps Other Infectious Disease History: hx osteomyelitis R hip. - Past Surgical History Head Surgeries/Procedures: Reports: None HEENT Surgical History: Reports: Adenoidectomy, Eye Surgery, Laser Surgery, Oral Surgery, Tonsillectomy Other HEENT Surgeries/Procedures: laser surg on tear ducts bilat, Cardiovascular Surgical History: Reports: Cardiac Ablation, Coronary Artery Stent, Other (See Below) Other Cardiovascular Surgeries/Procedures: afib, CORONARY ANGIOPLASTY Respiratory Surgical History: Reports: None GI Surgical History: Reports: Bariatric Procedure, Cholecystectomy, Colonoscopy, Hernia Repair/Other, Other (See Below) Other GI Surgeries/Procedures: STOMACH SLEEVE Male Surgical History: Reports: Other (See Below) Other Male Surgeries/Procedures: LEFT HYDROCELE SPERMATOCELE Endocrine Surgical History: Reports: None Neurological Surgical History: Reports: None Musculoskeletal Surgical History: Reports: Carpal Tunnel, Hip Replacement, ORIF Other Musculoskeletal Surgeries/Procedures:: R hip replacement & fusion. R knee pinning. Fracture of right knee with steel and screw placed. RIGHT TIBIA REPAIR Oncologic Surgical History: Reports: None Social & Family History - Family History Family Medical History: No Pertinent Family History GI: Reports: None - Tobacco Use Tobacco Use Status *Q: Former Tobacco User Used Tobacco, but Quit: Yes Month/Year Tobacco Last Used: 1999 - Caffeine Use Caffeine Use: Reports: Soda - Recreational Drug Use Recreational Drug Use: No ED ROS GENERAL - Review of Systems Review Of Systems: See Below Constitutional: Reports: No Symptoms HEENT: Reports: No Symptoms Respiratory: Reports: No Symptoms Cardiovascular: Reports: No Symptoms Endocrine: Reports: No Symptoms GI/Abdominal: Reports: No Symptoms : Reports: No Symptoms Musculoskeletal: Reports: Neck Pain, Shoulder Pain, Back Pain Skin: Reports: No Symptoms Neurological: Reports: No Symptoms Psychiatric: Reports: No Symptoms ED EXAM, GENERAL - Physical Exam Exam: See Below Exam Limited By: No Limitations General Appearance: Alert, No Apparent Distress Ears: Normal External Exam, Normal Canal, Hearing Grossly Normal Nose: Normal Inspection, Normal Mucosa, No Blood Throat/Mouth: Normal Inspection, Normal Lips, Normal Teeth Head: Atraumatic, Normocephalic Neck: Normal Inspection, Supple, Non-Tender, Full Range of Motion, Tender Midline Respiratory/Chest: No Respiratory Distress, Lungs Clear, Normal Breath Sounds, No Accessory Muscle Use, Chest Non-Tender Cardiovascular: Normal Peripheral Pulses, Regular Rate, Rhythm, No Edema, No Gallop, No JVD, No Murmur, No Rub GI/Abdominal: Normal Bowel Sounds, Soft, Non-Tender, No Organomegaly, No Distention, No Abnormal Bruit Back Exam: Normal Inspection, Full Range of Motion Extremities: Normal Inspection, Normal Range of Motion, Non-Tender, No Pedal Edema, Normal Capillary Refill Neurological: Alert, Oriented, CN II-XII Intact, Normal Cognition, Normal Gait, Normal Reflexes, No Motor/Sensory Deficits Psychiatric: Normal Affect Course - Vital Signs Text/Narrative:: Xray C-spine,thoracic and lumbar spine, rt shoulder-negative Tylenol 1000 mg PO x1 Last Recorded V/S: Last Vital Signs Temp 37.3 C 04/19/21 10:35 Pulse 67 04/19/21 12:55 Resp 18 04/19/21 12:55 BP 127/80 04/19/21 12:55 Pulse Ox 97 04/19/21 12:55 - Orders/Labs/Meds Labs: Laboratory Tests 04/19/21 Range/Units 12:05 PT 23.9 H (9.0-11.1) sec INR 2.34 H (1.00-1.24) Meds: Medications Discontinued Medications Generic Name Dose Route Start Last Admin Trade Name [place] PRN Reason Stop Dose Admin Acetaminophen 1,000 mg 04/19/21 11:01 04/19/21 11:10 Acetaminophen 500 Mg Tab PO 04/19/21 11:02 1,000 mg ONETIME ONE Administration Departure - Departure Time of Disposition: 13:55 Disposition: Home, Self-Care 01 Condition: Good Clinical Impression: Muscle strain - Discharge Information Instructions: Muscle Strain, [id number] Referrals: Marlon Hollingsworth MD [Primary Care Provider] - Forms: ED Department Discharge Additional Instructions: please read discharge instructions on muscle strain Take tylenol 1000 mg every 8 hours as needed for pain Follow up as needed Sepsis Event Note (ED) - Evaluation Sepsis Screening Result: No Definite Risk - Focused Exam Vital Signs: Vital Signs Temp Pulse Resp BP Pulse Ox 04/19/21 12:55 67 18 127/80 97 04/19/21 10:35 37.3 C 76 20 122/70 94 L
--- NOTE | 2021-04-19 14:09 | CR ---
RIGHT SHOULDER INDICATION: Fall. FINDINGS: Three views of the right shoulder were obtained 04/19/21 and compared with 05/29/18 revealing progressive osteoarthritis at the glenohumeral joint with narrowing of the joint space to a moderate degree. There is sclerosis at the undersurface of the acromion which would be compatible with impingement and rotator cuff injury and/or degeneration. However, an acute fracture or dislocation was not identified. Old healed posterolateral right sixth and seventh rib fracture sites are again noted. IMPRESSION: 1. No acute fracture or dislocation. 2. Progressive osteoarthritis at the glenohumeral joint. 3. Impingement. MTDD
--- NOTE | 2021-04-19 14:14 | CR ---
LUMBAR SPINE INDICATION: Fall. FINDINGS: Frontal and lateral views of the lumbosacral spine were obtained 04/19/21 - no comparison. Mild hypertrophic degenerative changes noted in general, more prominent at the L3-4 level anteriorly and laterally off vertebral bodies and also at L4-5. Narrowing of the L3-4 disc space with vacuum disc phenomenon is noted. Also mild narrowing of the L4-5 disc space is present suggesting disc disease at both those levels. Vertebral body heights were well maintained without a definite acute fracture or dislocation identified. There is a slight tilt to the right of the lumbar spine. Degenerative changes are noted at the left sacroiliac joint. There is what appears to be some deformity at the left iliac bone which may be postsurgical but should be correlated clinically and is not fully visualized. IMPRESSION: 1. No acute fracture or dislocation identified. Additional examination may be warranted if symptoms persist and occult fracture site is suspected clinically. 2. Osteoarthritis and degenerative disc disease. [facility]
--- NOTE | 2021-04-19 14:17 | CR ---
THORACIC SPINE INDICATION: Fall. FINDINGS: Frontal and lateral views of the thoracic spine were obtained 04/19/21 and compared with PA and lateral chest x-ray from 03/21/21. A mild dextroconcave scoliosis of the thoracic spine upper middle portion is suggested. There is minimal anterior vertebral body volume loss at two upper middle thoracic vertebral body levels which appear to be similar to the previous examination of the chest. The pedicles appear to be grossly intact. A definite acute fracture or dislocation was not identified. IMPRESSION: No definite acute fracture or dislocation - moderate hypertrophic degenerative changes are noted off vertebral bodies in the mid thoracic spine. If symptoms persist - if occult fracture site is suspected clinically, more advanced imaging may be warranted. DESTINYD
--- NOTE | 2021-04-19 14:27 | CR ---
CERVICAL SPINE INDICATION: Fall. FINDINGS: Three images of the cervical spine were obtained 04/19/21 and compared with 05/08/18. The odontoid appears to be intact. A mild dextroconvex scoliosis of the cervical spine is again noted. Hypertrophic degenerative changes are present at the lateral masses, especially on the left in the mid cervical spine. The cervical spine was not well visualized on the lateral projection and revealed hypertrophic changes and narrow disc spaces at C3-4 and to a lesser extent at C4-5 and then to a greater extent at C5-6. There also is some narrowing of the disc space at C6-7. Anterolisthesis noted at C4-6 and retrolisthesis grade I to II is noted at C6-7. This appearance was present previously and does not appear to be specifically posttraumatic in this case. Prevertebral space appeared similar to the previous study and likely normal. Degenerative changes are also noted at the odontoatlantian joint. IMPRESSION: Hypertrophic degenerative changes and disc disease cervical spine with some deformities, likely degenerative in nature. No definite acute fracture or dislocation. If symptoms persist - if occult fracture site is suspected clinically, more advanced imaging may be warranted. DESTINYD
[2021-04-19 16:22] VITALS: BP 127/80; PULSE 67
== END 2021-04-19 13:05 | disposition home or self-care (01) ==
LOC: FB.ED 10:20
DX: S16.1XXA Strain of muscle, fascia and tendon at neck level, initial encounter (principal); I25.10 Atherosclerotic heart disease of native coronary artery without angina pectoris; E78.00 Pure hypercholesterolemia, unspecified; I11.0 Hypertensive heart disease with heart failure; I50.9 Heart failure, unspecified; E03.9 Hypothyroidism, unspecified; I25.2 Old myocardial infarction; K21.9 Gastro-esophageal reflux disease without esophagitis; M19.90 Unspecified osteoarthritis, unspecified site; E66.9 Obesity, unspecified; Z68.30 Body mass index [BMI] 30.0-30.9, adult; Z95.0 Presence of cardiac pacemaker; Z95.5 Presence of coronary angioplasty implant and graft; Z88.0 Allergy status to penicillin; Z88.2 Allergy status to sulfonamides; Z79.82 Long term (current) use of aspirin; Z79.899 Other long term (current) drug therapy; Z87.891 Personal history of nicotine dependence; W01.0XXA Fall on same level from slipping, tripping and stumbling without subsequent striking against object, initial encounter
CPT/HCPCS: 36415; 72040; 72070; 72100; 73030-RT; 85610; 99283-25; A9270-GY

== ENCOUNTER 2021-08-09 23:56 | Emergency (ER) | payer MEDICARE, BC ==
[2021-08-10] MEDS ORDERED: traMADol 50 MG Tab PO STA (02:13)
[2021-08-10] MEDS ORDERED: Cyclobenzaprine 10 MG Tab PO STA (02:13)
[2021-08-10] MEDS ORDERED: Acetaminophen 500 MG Tab PO STA (02:13)
[2021-08-10 02:27] VITALS: BP 148/82; PULSE 68
== END 2021-08-10 02:39 | disposition home or self-care (01) ==
LOC: FB.ED 23:56
DX: S46.912A Strain of unspecified muscle, fascia and tendon at shoulder and upper arm level, left arm, initial encounter (principal); S09.90XA Unspecified injury of head, initial encounter; I48.91 Unspecified atrial fibrillation; I25.10 Atherosclerotic heart disease of native coronary artery without angina pectoris; E78.00 Pure hypercholesterolemia, unspecified; I11.0 Hypertensive heart disease with heart failure; I50.9 Heart failure, unspecified; E03.9 Hypothyroidism, unspecified; E66.9 Obesity, unspecified; Z68.30 Body mass index [BMI] 30.0-30.9, adult; Z95.0 Presence of cardiac pacemaker; Z79.82 Long term (current) use of aspirin; Z79.01 Long term (current) use of anticoagulants; Z88.0 Allergy status to penicillin; Z88.2 Allergy status to sulfonamides; Z79.899 Other long term (current) drug therapy; W01.198A Fall on same level from slipping, tripping and stumbling with subsequent striking against other object, initial encounter
CPT/HCPCS: 70450; 72100; 73030-LT; 99282; 99284-25; A9270-GY

== ENCOUNTER 2022-12-25 15:24 | Emergency (ER) | payer MEDICARE, BC ==
[2022-12-25 15:50] LABS: BASOPHILS PERCENT AUTO 0.5 % (0.3-3.8); EOSINOPHILS ABSOLUTE AUTO 0.1 x10-3/uL (0.0-0.6); EOSINOPHILS PERCENT AUTO 1.4 % (0.1-6.8); HEMATOCRIT 39.7 % (38.3-50.1); HEMOGLOBIN 13.6 g/dL (12.9-17.7); LYMPHOCYTES ABSOLUTE AUTO 1.8 x10-3/uL (0.5-4.5); LYMPHOCYTES PERCENT AUTO 28.6 % (15.8-45.3); MEAN CORPUSCULAR HEMOGLOBIN 31.4 pg (27.0-33.3); MEAN CORPUSCULAR HGB CONC 34.2 g/dL (28.7-35.3); MEAN CORPUSCULAR VOLUME 91.9 fL (80.8-98.7); MEAN PLATELET VOLUME 6.5 fL (6.7-11.0); MONOCYTES ABSOLUTE AUTO 0.5 x10-3/uL (0.0-1.2); MONOCYTES PERCENT AUTO 8.2 % (5.5-15.2); NEUTROPHILS ABSOLUTE AUTO 3.9 x10-3/uL (1.7-6.9); NEUTROPHILS PERCENT AUTO 61.3 % (40.3-71.8); PLATELET COUNT,PLT 300 x10(3)uL (117-477); RED BLOOD CELL COUNT 4.32 x10(6)uL (3.90-5.90); RED CELL DISTRIBUTION WIDTH 13.3 % (12.4-15.0); WHITE BLOOD CELL COUNT,WBC 6.3 x10-3/uL (3.2-10.1)
[2022-12-25 15:51] LABS: BLOOD UREA NITROGEN,BUN 10 mg/dL (7-18); BUN/CREATININE RATIO 12.5 (9-20); CALCIUM 9.6 mg/dL (8.6-10.2); CARBON DIOXIDE,CO2 27 mmol/L (21-32); CHLORIDE,CL 101 mmol/L (100-110); CREATININE 0.8 mg/dL (0.70-1.30); EST CRCL DRUG DOSING (CG) 83.65 mL/min; ESTIMATED GFR 93 mL/min (>60); GLUCOSE RANDOM 101 mg/dL (80-116); POTASSIUM,K 4.3 mmol/L (3.5-5.3); SODIUM,NA 137 mmol/L (135-145)
[2022-12-25 15:57] LABS: A/G RATIO 1.1; ALANINE AMINOTRANSFERASE,ALT 45 U/L (12-36); ALBUMIN 3.9 g/dL (3.2-4.6); ALKALINE PHOSPHATASE 91 IU/L (56-112); ASPARTATE AMNIOTRANSFERASE,AST 31 IU/L (5-25); BILIRUBIN TOTAL 0.4 mg/dL (0.1-1.3); INR 2.07 (1.00-1.24); PROTEIN TOTAL,TP 7.4 g/dL (6.0-8.0); PROTHROMBIN TIME 20.9 sec (9.0-11.1)
[2022-12-25 16:05] LABS: TROPONIN I 17.7 pg/mL (4.0-60.3)
[2022-12-25 16:43] VITALS: BP 167/93; PULSE 68
== END 2022-12-25 17:00 | disposition home or self-care (01) ==
LOC: FB.ED 15:24
DX: I25.10 Atherosclerotic heart disease of native coronary artery without angina pectoris (principal); I48.92 Unspecified atrial flutter; I48.91 Unspecified atrial fibrillation; I11.0 Hypertensive heart disease with heart failure; I50.9 Heart failure, unspecified; E78.00 Pure hypercholesterolemia, unspecified; I25.2 Old myocardial infarction; E11.51 Type 2 diabetes mellitus with diabetic peripheral angiopathy without gangrene; J45.909 Unspecified asthma, uncomplicated; M19.90 Unspecified osteoarthritis, unspecified site; E03.9 Hypothyroidism, unspecified; E66.9 Obesity, unspecified; Z68.39 Body mass index [BMI] 39.0-39.9, adult; Z87.891 Personal history of nicotine dependence; Z79.01 Long term (current) use of anticoagulants; Z79.899 Other long term (current) drug therapy; Z79.82 Long term (current) use of aspirin; Z88.0 Allergy status to penicillin; Z88.2 Allergy status to sulfonamides
CPT/HCPCS: 36415; 71045; 80053; 83880; 84443; 84484; 85025; 85610; 93005; 93010; 99283; 99285

== ENCOUNTER 2023-11-17 14:01 | Emergency (ER) | payer MEDICARE, BC ==
[2023-11-17] MEDS ORDERED: traMADol 50 MG Tab PO ONE (14:02)
[2023-11-17 14:43] VITALS: BP 164/75; PULSE 68
[2023-11-17 14:48] LABS: BASOPHILS ABSOLUTE AUTO 0.1 x10-3/uL (0.0-0.3); BASOPHILS PERCENT AUTO 0.8 % (0.3-3.8); EOSINOPHILS ABSOLUTE AUTO 0.1 x10-3/uL (0.0-0.6); EOSINOPHILS PERCENT AUTO 1.1 % (0.1-6.8); LYMPHOCYTES ABSOLUTE AUTO 1.9 x10-3/uL (0.5-4.5); LYMPHOCYTES PERCENT AUTO 26.1 % (15.8-45.3); MEAN CORPUSCULAR HEMOGLOBIN 31.1 pg (27.0-33.3); MEAN CORPUSCULAR HGB CONC 33.2 g/dL (28.7-35.3); MEAN CORPUSCULAR VOLUME 93.5 fL (80.8-98.7); MEAN PLATELET VOLUME 6.7 fL (6.7-11.0); MONOCYTES ABSOLUTE AUTO 0.5 x10-3/uL (0.0-1.2); MONOCYTES PERCENT AUTO 7.5 % (5.5-15.2); NEUTROPHILS ABSOLUTE AUTO 4.7 x10-3/uL (1.7-6.9); NEUTROPHILS PERCENT AUTO 64.5 % (40.3-71.8); PLATELET COUNT,PLT 285 x10(3)uL (117-477); RED BLOOD CELL COUNT 4.17 x10(6)uL (3.90-5.90); RED CELL DISTRIBUTION WIDTH 13.2 % (12.4-15.0); WHITE BLOOD CELL COUNT,WBC 7.3 x10-3/uL (3.2-10.1)
[2023-11-17 14:50] LABS: BILIRUBIN,URINE NEGATIVE (NEGATIVE); GLUCOSE,URINE NORMAL (NORMAL); KETONES,URINE NEGATIVE (NEGATIVE); LEUKOCYTE ESTERASE,URINE NEGATIVE (NEGATIVE); NITRITE,URINE NEGATIVE (NEGATIVE); OCCULT BLOOD,URINE NEGATIVE (NEGATIVE); PH,URINE 6.5 (5.0-6.5); PROTEIN,URINE NEGATIVE (NEGATIVE); UROBILINOGEN,URINE NORMAL (NEGATIVE)
[2023-11-17 14:55] LABS: APPEARANCE,URINE CLEAR (CLEAR); BACTERIA,URINE OCCASIONAL (NS); COLOR,URINE YELLOW (YELLOW); SQUAMOUS EPITHELIAL CELLS,UR OCCASIONAL (NS,R,O)
[2023-11-17 14:56] LABS: INR 2.35 (1.00-1.24); PROTHROMBIN TIME 22.8 sec (9.0-11.1)
[2023-11-17 15:00] LABS: POTASSIUM,K 4.4 mmol/L (3.5-5.3)
[2023-11-17 15:06] LABS: BLOOD UREA NITROGEN,BUN 17 mg/dL (7-18); CALCIUM 9.3 mg/dL (8.6-10.2); CARBON DIOXIDE,CO2 28 mmol/L (21-32); CHLORIDE,CL 102 mmol/L (100-110); ESTIMATED GFR 78 mL/min (>60); GLUCOSE RANDOM 105 mg/dL (80-116); SODIUM,NA 139 mmol/L (135-145)
[2023-11-17 15:12] LABS: ALANINE AMINOTRANSFERASE,ALT 39 U/L (12-36); ALBUMIN 3.7 g/dL (3.2-4.6); ALKALINE PHOSPHATASE 78 IU/L (56-112); ASPARTATE AMNIOTRANSFERASE,AST 23 IU/L (5-25); BILIRUBIN TOTAL 0.4 mg/dL (0.1-1.3); MAGNESIUM 2.2 mg/dL (1.8-2.5); PROTEIN TOTAL,TP 7.5 g/dL (6.0-8.0)
[2023-11-17] MEDS: Diphtheria,Pertussis(Acell),Tetanus Vaccine 0.5 ML Syringe IM ONE (15:42)
== END 2023-11-17 17:24 | disposition home or self-care (01) ==
LOC: FB.ED 14:01
DX: S20.212A Contusion of left front wall of thorax, initial encounter (principal); S70.12XA Contusion of left thigh, initial encounter; I11.0 Hypertensive heart disease with heart failure; I50.9 Heart failure, unspecified; I25.2 Old myocardial infarction; I25.10 Atherosclerotic heart disease of native coronary artery without angina pectoris; E78.00 Pure hypercholesterolemia, unspecified; K21.9 Gastro-esophageal reflux disease without esophagitis; E03.9 Hypothyroidism, unspecified; E66.9 Obesity, unspecified; Z95.0 Presence of cardiac pacemaker; Z79.82 Long term (current) use of aspirin; Z79.899 Other long term (current) drug therapy; Z79.01 Long term (current) use of anticoagulants; Z88.0 Allergy status to penicillin; Z88.2 Allergy status to sulfonamides; Z68.37 Body mass index [BMI] 37.0-37.9, adult; Z23 Encounter for immunization; W01.198A Fall on same level from slipping, tripping and stumbling with subsequent striking against other object, initial encounter; Y92.007 Garden or yard of unspecified non-institutional (private) residence as the place of occurrence of the external cause
CPT/HCPCS: 36415; 70450; 71101; 80053; 81001; 83735; 84484; 85025; 85610; 90471; 90715; 93005; 99284; A9270

== ENCOUNTER 2023-11-21 17:13 | Inpatient (IN) | payer MEDICARE, BC ==
[2023-11-21 17:49] LABS: BASOPHILS PERCENT AUTO 0.4 % (0.3-3.8); BLOOD UREA NITROGEN,BUN 12 mg/dL (7-18); BUN/CREATININE RATIO 13.3 (9-20); CARBON DIOXIDE,CO2 27 mmol/L (21-32); CHLORIDE,CL 100 mmol/L (100-110); CREATININE 0.9 mg/dL (0.70-1.30); EOSINOPHILS ABSOLUTE AUTO 0.1 x10-3/uL (0.0-0.6); EOSINOPHILS PERCENT AUTO 1.2 % (0.1-6.8); ESTIMATED GFR 89 mL/min (>60); GLUCOSE RANDOM 126 mg/dL (80-116); HEMOGLOBIN 11.9 g/dL (12.9-17.7); LYMPHOCYTES ABSOLUTE AUTO 1.6 x10-3/uL (0.5-4.5); LYMPHOCYTES PERCENT AUTO 19.7 % (15.8-45.3); MEAN CORPUSCULAR HEMOGLOBIN 31.4 pg (27.0-33.3); MEAN CORPUSCULAR VOLUME 92.5 fL (80.8-98.7); MONOCYTES ABSOLUTE AUTO 0.8 x10-3/uL (0.0-1.2); MONOCYTES PERCENT AUTO 10.4 % (5.5-15.2); NEUTROPHILS ABSOLUTE AUTO 5.5 x10-3/uL (1.7-6.9); NEUTROPHILS PERCENT AUTO 68.3 % (40.3-71.8); PLATELET COUNT,PLT 316 x10(3)uL (117-477); RED BLOOD CELL COUNT 3.79 x10(6)uL (3.90-5.90); RED CELL DISTRIBUTION WIDTH 13.1 % (12.4-15.0); SODIUM,NA 136 mmol/L (135-145)
[2023-11-21 17:54] LABS: INR 1.92 (1.00-1.24); PROTHROMBIN TIME 18.9 sec (9.0-11.1)
[2023-11-21 17:55] LABS: A/G RATIO 0.9; ALANINE AMINOTRANSFERASE,ALT 29 U/L (12-36); ALBUMIN 3.4 g/dL (3.2-4.6); ALKALINE PHOSPHATASE 83 IU/L (56-112); ASPARTATE AMNIOTRANSFERASE,AST 24 IU/L (5-25); BILIRUBIN TOTAL 0.5 mg/dL (0.1-1.3); PROTEIN TOTAL,TP 7.3 g/dL (6.0-8.0)
[2023-11-21 17:56] LABS: PTT,PARTIAL THROMBOPLSTIN TIME 39.4 SECONDS (24.4-33.2)
[2023-11-21 17:59] LABS: LACTIC ACID 1.8 mmol/L (0.4-2.0)
[2023-11-21 18:02] LABS: TROPONIN I 12.4 pg/mL (4.0-60.3)
[2023-11-21] MEDS: Cefepime 1 GM Vial IVPUSH SCH (18:30)
[2023-11-21] MEDS: Sodium Chloride 0.9% 10 ML Syringe FLUSH PRN (18:53)
[2023-11-21] MEDS: Cefepime 2 GM Vial IVPUSH ONE (18:54)
[2023-11-21] MEDS: Iopamidol 755 Mg/ML 100 ML Bottle IV SCH (18:59)
[2023-11-21] MEDS: VANCOmycin 1.5 GM/300 ML 1.5 GM in Premix Bag 1 BAG IV SCH (19:02)
[2023-11-21] MEDS ORDERED: Ondansetron 4 MG/2 ML SDV IV PRN ×2 (20:09→20:35)
[2023-11-21] MEDS ORDERED: Sennosides/Docusate Sodium 50-8.6 MG Tab PO PRN (20:09)
[2023-11-21] MEDS ORDERED: Non-Formulary Medication 1 Each (Calcium Carbonate/Vitamin D3 [Caltrate 600 Plus D3 Tablet PO SCH (21:00)
[2023-11-21] MEDS: traMADol 50 MG Tab PO PRN (21:04)
[2023-11-21] MEDS: Sennosides/Docusate Sodium 50-8.6 MG Tab PO PRN (21:04)
[2023-11-21] MEDS: Mirtazapine 15 MG Tab PO SCH (21:05)
[2023-11-21] MEDS: Rosuvastatin 10 MG Tab PO SCH (21:05)
[2023-11-21] MEDS: Calcium Carbonate 500 MG Tablet PO SCH (21:05)
[2023-11-21] MEDS: Carvedilol 6.25 MG Tab PO SCH (21:06)
[2023-11-22 06:43] LABS: BASOPHILS ABSOLUTE AUTO 0.1 x10-3/uL (0.0-0.3); BASOPHILS PERCENT AUTO 0.7 % (0.3-3.8); EOSINOPHILS ABSOLUTE AUTO 0.2 x10-3/uL (0.0-0.6); EOSINOPHILS PERCENT AUTO 2.1 % (0.1-6.8); HEMATOCRIT 31.6 % (38.3-50.1); HEMOGLOBIN 10.7 g/dL (12.9-17.7); LYMPHOCYTES ABSOLUTE AUTO 1.8 x10-3/uL (0.5-4.5); LYMPHOCYTES PERCENT AUTO 24.2 % (15.8-45.3); MEAN CORPUSCULAR HEMOGLOBIN 31.6 pg (27.0-33.3); MEAN CORPUSCULAR VOLUME 92.8 fL (80.8-98.7); MEAN PLATELET VOLUME 6.8 fL (6.7-11.0); MONOCYTES ABSOLUTE AUTO 0.8 x10-3/uL (0.0-1.2); MONOCYTES PERCENT AUTO 10.8 % (5.5-15.2); NEUTROPHILS ABSOLUTE AUTO 4.7 x10-3/uL (1.7-6.9); NEUTROPHILS PERCENT AUTO 62.2 % (40.3-71.8); PLATELET COUNT,PLT 273 x10(3)uL (117-477); RED CELL DISTRIBUTION WIDTH 13.5 % (12.4-15.0); WHITE BLOOD CELL COUNT,WBC 7.6 x10-3/uL (3.2-10.1)
[2023-11-22 06:49] LABS: INR 1.67 (1.00-1.24); PROTHROMBIN TIME 16.6 sec (9.0-11.1)
[2023-11-22] MEDS: Levothyroxine 125 MCG Tab PO SCH (06:49)
[2023-11-22 06:56] LABS: A/G RATIO 0.8; ALANINE AMINOTRANSFERASE,ALT 24 U/L (12-36); ALBUMIN 2.8 g/dL (3.2-4.6); ALKALINE PHOSPHATASE 67 IU/L (56-112); ASPARTATE AMNIOTRANSFERASE,AST 17 IU/L (5-25); BILIRUBIN TOTAL 0.6 mg/dL (0.1-1.3); BLOOD UREA NITROGEN,BUN 9 mg/dL (7-18); BUN/CREATININE RATIO 11.3 (9-20); CALCIUM 8.4 mg/dL (8.6-10.2); CARBON DIOXIDE,CO2 28 mmol/L (21-32); CHLORIDE,CL 102 mmol/L (100-110); CREATININE 0.8 mg/dL (0.70-1.30); EST CRCL DRUG DOSING (CG) 82.38 mL/min; ESTIMATED GFR 92 mL/min (>60); GLUCOSE RANDOM 95 mg/dL (80-116); POTASSIUM,K 4.2 mmol/L (3.5-5.3); PROTEIN TOTAL,TP 6.2 g/dL (6.0-8.0); SODIUM,NA 136 mmol/L (135-145)
[2023-11-22] MEDS ORDERED: Acetaminophen 325 MG Tab PO PRN (08:29)
[2023-11-22] MEDS ORDERED: buPROPion 150 MG Tab.ER PO SCH (09:00)
[2023-11-22] MEDS ORDERED: Aspirin 81 MG Tab.EC PO SCH (09:00)
[2023-11-22] MEDS ORDERED: Multivitamin Tab PO SCH (09:00)
[2023-11-22] MEDS: Pantoprazole 40 MG Tab.CR PO SCH (09:23)
[2023-11-22] MEDS: Furosemide 20 MG Tab PO SCH (09:23)
[2023-11-22] MEDS: buPROPion 150 MG Tab.ER PO SCH (09:24)
[2023-11-22] MEDS: Cefepime 2 GM Vial IVPUSH SCH (09:28)
[2023-11-22] MEDS: Warfarin 5 MG Tab PO ONE (15:45)
[2023-11-22] MEDS ORDERED: Warfarin 2.5 MG Tab PO SCH (16:00)
[2023-11-22] MEDS ORDERED: Warfarin 5 MG Tab PO SCH (16:00)
[2023-11-22] MEDS: VANCOmycin 1.25 GM/250 ML 1.25 GM in Premix Bag 1 BAG IV SCH (20:09)
[2023-11-22] MEDS: VITAMIN D3 PO SCH (20:22)
[2023-11-22] MEDS: CALCIUM CITRATE PO SCH (20:22)
[2023-11-22] MEDS: IRON PO SCH (20:23)
[2023-11-22] MEDS: [UNRECOGNIZED DRUG - OTHER] PO SCH (20:23)
[2023-11-22] MEDS: Aspirin 81 MG Tab.EC PO SCH (20:24)
[2023-11-23 07:43] LABS: INR 1.53 (1.00-1.24); PROTHROMBIN TIME 15.4 sec (9.0-11.1)
[2023-11-23 07:47] LABS: BASOPHILS PERCENT AUTO 0.6 % (0.3-3.8); EOSINOPHILS ABSOLUTE AUTO 0.2 x10-3/uL (0.0-0.6); EOSINOPHILS PERCENT AUTO 2.7 % (0.1-6.8); HEMATOCRIT 32.1 % (38.3-50.1); HEMOGLOBIN 11.2 g/dL (12.9-17.7); LYMPHOCYTES ABSOLUTE AUTO 1.9 x10-3/uL (0.5-4.5); LYMPHOCYTES PERCENT AUTO 24.6 % (15.8-45.3); MEAN CORPUSCULAR HEMOGLOBIN 32.3 pg (27.0-33.3); MEAN CORPUSCULAR VOLUME 92.4 fL (80.8-98.7); MEAN PLATELET VOLUME 6.8 fL (6.7-11.0); MONOCYTES ABSOLUTE AUTO 0.8 x10-3/uL (0.0-1.2); NEUTROPHILS ABSOLUTE AUTO 4.6 x10-3/uL (1.7-6.9); NEUTROPHILS PERCENT AUTO 61.1 % (40.3-71.8); PLATELET COUNT,PLT 291 x10(3)uL (117-477); RED BLOOD CELL COUNT 3.47 x10(6)uL (3.90-5.90); WHITE BLOOD CELL COUNT,WBC 7.6 x10-3/uL (3.2-10.1)
[2023-11-23 11:37] LABS: CHLORIDE,CL 101 mmol/L (100-110); POTASSIUM,K 4.2 mmol/L (3.5-5.3); SODIUM,NA 137 mmol/L (135-145)
[2023-11-23 11:38] LABS: A/G RATIO 0.7; ALANINE AMINOTRANSFERASE,ALT 25 U/L (12-36); ALBUMIN 2.8 g/dL (3.2-4.6); ALKALINE PHOSPHATASE 73 IU/L (56-112); ASPARTATE AMNIOTRANSFERASE,AST 22 IU/L (5-25); BILIRUBIN TOTAL 0.6 mg/dL (0.1-1.3); BLOOD UREA NITROGEN,BUN 8 mg/dL (7-18); CARBON DIOXIDE,CO2 30 mmol/L (21-32); CREATININE 0.8 mg/dL (0.70-1.30); EST CRCL DRUG DOSING (CG) 82.38 mL/min; ESTIMATED GFR 92 mL/min (>60); GLUCOSE RANDOM 96 mg/dL (80-116); PROTEIN TOTAL,TP 6.7 g/dL (6.0-8.0)
[2023-11-23] MEDS ORDERED: Ampicillin/Sulbactam Na 3 GM in Sodium Chloride 0.9% 100 ML IV SCH (11:45)
[2023-11-23] MEDS: Levothyroxine 125 MCG Tab PO SCH (14:36)
[2023-11-23] MEDS ORDERED: Warfarin 5 MG Tab PO SCH (16:00)
[2023-11-23] MEDS: metroNIDAZOLE 500 MG Tab PO SCH (20:44)
[2023-11-24] MEDS: Warfarin 5 MG Tab PO ONE (00:03)
[2023-11-24] MEDS: cefTRIAXone 2 GM Vial IVPUSH SCH (00:03)
[2023-11-24 06:55] LABS: BASOPHILS PERCENT AUTO 0.6 % (0.3-3.8); EOSINOPHILS ABSOLUTE AUTO 0.2 x10-3/uL (0.0-0.6); EOSINOPHILS PERCENT AUTO 2.6 % (0.1-6.8); HEMATOCRIT 31.7 % (38.3-50.1); HEMOGLOBIN 10.9 g/dL (12.9-17.7); LYMPHOCYTES ABSOLUTE AUTO 1.8 x10-3/uL (0.5-4.5); LYMPHOCYTES PERCENT AUTO 25.2 % (15.8-45.3); MEAN CORPUSCULAR HGB CONC 34.3 g/dL (28.7-35.3); MEAN CORPUSCULAR VOLUME 93.1 fL (80.8-98.7); MEAN PLATELET VOLUME 6.9 fL (6.7-11.0); MONOCYTES ABSOLUTE AUTO 0.8 x10-3/uL (0.0-1.2); MONOCYTES PERCENT AUTO 11.4 % (5.5-15.2); NEUTROPHILS ABSOLUTE AUTO 4.3 x10-3/uL (1.7-6.9); NEUTROPHILS PERCENT AUTO 60.2 % (40.3-71.8); PLATELET COUNT,PLT 301 x10(3)uL (117-477); RED CELL DISTRIBUTION WIDTH 13.1 % (12.4-15.0); WHITE BLOOD CELL COUNT,WBC 7.1 x10-3/uL (3.2-10.1)
[2023-11-24 06:58] LABS: BLOOD UREA NITROGEN,BUN 8 mg/dL (7-18); CALCIUM 8.9 mg/dL (8.6-10.2); CARBON DIOXIDE,CO2 30 mmol/L (21-32); CHLORIDE,CL 103 mmol/L (100-110); CREATININE 0.8 mg/dL (0.70-1.30); EST CRCL DRUG DOSING (CG) 82.38 mL/min; ESTIMATED GFR 92 mL/min (>60); GLUCOSE RANDOM 99 mg/dL (80-116); POTASSIUM,K 4.4 mmol/L (3.5-5.3); SODIUM,NA 138 mmol/L (135-145)
[2023-11-24 06:59] LABS: INR 1.87 (1.00-1.24); PROTHROMBIN TIME 18.5 sec (9.0-11.1)
[2023-11-24] MEDS: Warfarin 2.5 MG Tab PO SCH (16:34)
[2023-11-25 06:41] LABS: BASOPHILS ABSOLUTE AUTO 0.1 x10-3/uL (0.0-0.3); BASOPHILS PERCENT AUTO 0.8 % (0.3-3.8); BLOOD UREA NITROGEN,BUN 8 mg/dL (7-18); CALCIUM 8.8 mg/dL (8.6-10.2); CARBON DIOXIDE,CO2 30 mmol/L (21-32); CHLORIDE,CL 101 mmol/L (100-110); CREATININE 0.8 mg/dL (0.70-1.30); EOSINOPHILS ABSOLUTE AUTO 0.2 x10-3/uL (0.0-0.6); EOSINOPHILS PERCENT AUTO 3.4 % (0.1-6.8); EST CRCL DRUG DOSING (CG) 82.38 mL/min; ESTIMATED GFR 92 mL/min (>60); GLUCOSE RANDOM 95 mg/dL (80-116); HEMATOCRIT 32.6 % (38.3-50.1); LYMPHOCYTES ABSOLUTE AUTO 1.9 x10-3/uL (0.5-4.5); LYMPHOCYTES PERCENT AUTO 29.2 % (15.8-45.3); MEAN CORPUSCULAR HEMOGLOBIN 31.6 pg (27.0-33.3); MEAN CORPUSCULAR HGB CONC 33.9 g/dL (28.7-35.3); MEAN CORPUSCULAR VOLUME 93.1 fL (80.8-98.7); MEAN PLATELET VOLUME 6.7 fL (6.7-11.0); MONOCYTES ABSOLUTE AUTO 0.7 x10-3/uL (0.0-1.2); MONOCYTES PERCENT AUTO 10.3 % (5.5-15.2); NEUTROPHILS ABSOLUTE AUTO 3.7 x10-3/uL (1.7-6.9); NEUTROPHILS PERCENT AUTO 56.3 % (40.3-71.8); PLATELET COUNT,PLT 325 x10(3)uL (117-477); POTASSIUM,K 4.3 mmol/L (3.5-5.3); SODIUM,NA 137 mmol/L (135-145); WHITE BLOOD CELL COUNT,WBC 6.5 x10-3/uL (3.2-10.1)
[2023-11-25 06:43] LABS: INR 2.49 (1.00-1.24)
[2023-11-25] MEDS: Warfarin 5 MG Tab PO ONE (16:00)
[2023-11-26 07:04] LABS: BASOPHILS ABSOLUTE AUTO 0.1 x10-3/uL (0.0-0.3); BASOPHILS PERCENT AUTO 0.8 % (0.3-3.8); EOSINOPHILS ABSOLUTE AUTO 0.2 x10-3/uL (0.0-0.6); EOSINOPHILS PERCENT AUTO 3.1 % (0.1-6.8); HEMATOCRIT 34.1 % (38.3-50.1); HEMOGLOBIN 11.5 g/dL (12.9-17.7); LYMPHOCYTES ABSOLUTE AUTO 1.5 x10-3/uL (0.5-4.5); LYMPHOCYTES PERCENT AUTO 23.1 % (15.8-45.3); MEAN CORPUSCULAR HEMOGLOBIN 31.3 pg (27.0-33.3); MEAN CORPUSCULAR HGB CONC 33.8 g/dL (28.7-35.3); MEAN CORPUSCULAR VOLUME 92.6 fL (80.8-98.7); MEAN PLATELET VOLUME 6.6 fL (6.7-11.0); MONOCYTES ABSOLUTE AUTO 0.6 x10-3/uL (0.0-1.2); MONOCYTES PERCENT AUTO 9.3 % (5.5-15.2); NEUTROPHILS ABSOLUTE AUTO 4.3 x10-3/uL (1.7-6.9); NEUTROPHILS PERCENT AUTO 63.7 % (40.3-71.8); PLATELET COUNT,PLT 374 x10(3)uL (117-477); RED BLOOD CELL COUNT 3.68 x10(6)uL (3.90-5.90); RED CELL DISTRIBUTION WIDTH 13.1 % (12.4-15.0); WHITE BLOOD CELL COUNT,WBC 6.7 x10-3/uL (3.2-10.1)
[2023-11-26 07:08] LABS: BLOOD UREA NITROGEN,BUN 9 mg/dL (7-18); BUN/CREATININE RATIO 12.9 (9-20); CARBON DIOXIDE,CO2 30 mmol/L (21-32); CHLORIDE,CL 102 mmol/L (100-110); CREATININE 0.7 mg/dL (0.70-1.30); EST CRCL DRUG DOSING (CG) 94.15 mL/min; ESTIMATED GFR 96 mL/min (>60); GLUCOSE RANDOM 96 mg/dL (80-116); POTASSIUM,K 4.3 mmol/L (3.5-5.3); SODIUM,NA 138 mmol/L (135-145)
[2023-11-26 07:11] LABS: INR 2.28 (1.00-1.24); PROTHROMBIN TIME 22.2 sec (9.0-11.1)
[2023-11-26] MEDS: Cefdinir 300 MG Cap PO SCH (10:51)
[2023-11-26] MEDS: Doxycycline 100 MG Tab PO SCH (10:52)
[2023-11-26] MEDS: Warfarin 5 MG Tab PO SCH (16:25)
[2023-11-27 06:47] LABS: INR 2.08 (1.00-1.24); PROTHROMBIN TIME 20.4 sec (9.0-11.1)
[2023-11-27] MEDS: Warfarin 2.5 MG, Warfarin 5 MG PO SCH (17:00)
[2023-11-28] MEDS: Sodium Chloride 0.65% Nasal Spray 45 ML Bottle NAS PRN (01:00)
[2023-11-28 06:44] LABS: BASOPHILS ABSOLUTE AUTO 0.1 x10-3/uL (0.0-0.3); BASOPHILS PERCENT AUTO 0.8 % (0.3-3.8); EOSINOPHILS ABSOLUTE AUTO 0.2 x10-3/uL (0.0-0.6); EOSINOPHILS PERCENT AUTO 3.3 % (0.1-6.8); HEMATOCRIT 32.9 % (38.3-50.1); HEMOGLOBIN 11.2 g/dL (12.9-17.7); LYMPHOCYTES ABSOLUTE AUTO 1.7 x10-3/uL (0.5-4.5); MEAN CORPUSCULAR HEMOGLOBIN 31.4 pg (27.0-33.3); MEAN CORPUSCULAR VOLUME 92.4 fL (80.8-98.7); MEAN PLATELET VOLUME 6.3 fL (6.7-11.0); MONOCYTES ABSOLUTE AUTO 0.7 x10-3/uL (0.0-1.2); MONOCYTES PERCENT AUTO 10.1 % (5.5-15.2); NEUTROPHILS ABSOLUTE AUTO 4.2 x10-3/uL (1.7-6.9); NEUTROPHILS PERCENT AUTO 60.8 % (40.3-71.8); PLATELET COUNT,PLT 366 x10(3)uL (117-477); RED BLOOD CELL COUNT 3.56 x10(6)uL (3.90-5.90); RED CELL DISTRIBUTION WIDTH 13.1 % (12.4-15.0); WHITE BLOOD CELL COUNT,WBC 6.9 x10-3/uL (3.2-10.1)
[2023-11-28 06:48] LABS: BLOOD UREA NITROGEN,BUN 9 mg/dL (7-18); BUN/CREATININE RATIO 11.3 (9-20); CARBON DIOXIDE,CO2 31 mmol/L (21-32); CHLORIDE,CL 102 mmol/L (100-110); CREATININE 0.8 mg/dL (0.70-1.30); EST CRCL DRUG DOSING (CG) 82.38 mL/min; ESTIMATED GFR 92 mL/min (>60); GLUCOSE RANDOM 92 mg/dL (80-116); POTASSIUM,K 4.2 mmol/L (3.5-5.3); SODIUM,NA 139 mmol/L (135-145)
[2023-11-28 10:45] VITALS: BP 117/56; PULSE 67
== END 2023-11-28 10:30 | disposition home or self-care (01) | DRG 603 ==
LOC: FB.ED 17:13 → FB.MS 20:09 → UNDOADMIN 20:35 → UNDODISIN 11-28 10:30
PROVIDERS: ADMIT Emergency Medicine; ATTEND Family Medicine
DX: L03.116 Cellulitis of left lower limb (principal); I48.3 Typical atrial flutter; G45.9 Transient cerebral ischemic attack, unspecified; E03.9 Hypothyroidism, unspecified; E66.9 Obesity, unspecified; J45.909 Unspecified asthma, uncomplicated; I21.4 Non-ST elevation (NSTEMI) myocardial infarction; K21.9 Gastro-esophageal reflux disease without esophagitis; I82.409 Acute embolism and thrombosis of unspecified deep veins of unspecified lower extremity; F32.A Depression, unspecified; I48.92 Unspecified atrial flutter; F41.0 Panic disorder [episodic paroxysmal anxiety]; I50.9 Heart failure, unspecified; E78.00 Pure hypercholesterolemia, unspecified; I11.0 Hypertensive heart disease with heart failure; M19.90 Unspecified osteoarthritis, unspecified site; I48.91 Unspecified atrial fibrillation; D64.9 Anemia, unspecified; S70.12XA Contusion of left thigh, initial encounter; Z95.5 Presence of coronary angioplasty implant and graft; S20.212A Contusion of left front wall of thorax, initial encounter; Z79.890 Hormone replacement therapy; I25.10 Atherosclerotic heart disease of native coronary artery without angina pectoris; Z79.2 Long term (current) use of antibiotics; G47.30 Sleep apnea, unspecified; I25.2 Old myocardial infarction; Z95.0 Presence of cardiac pacemaker; Z95.2 Presence of prosthetic heart valve; Y92.007 Garden or yard of unspecified non-institutional (private) residence as the place of occurrence of the external cause; Z88.2 Allergy status to sulfonamides; Z88.0 Allergy status to penicillin; Z79.82 Long term (current) use of aspirin; Z79.01 Long term (current) use of anticoagulants; Z90.49 Acquired absence of other specified parts of digestive tract; Z87.01 Personal history of pneumonia (recurrent); Z68.38 Body mass index [BMI] 38.0-38.9, adult; Z79.899 Other long term (current) drug therapy; Z86.010 Personal history of colon polyps; Z98.890 Other specified postprocedural states; Z96.649 Presence of unspecified artificial hip joint; W01.0XXA Fall on same level from slipping, tripping and stumbling without subsequent striking against object, initial encounter
CPT/HCPCS: 36415; 71045; 73701; 80053; 83605; 83880; 84484; 85025; 85610; 85730; 86140; 87040 ×2; 93005; 93010; 96365; 96375; 99285 ×2; J0692; J3372; J3490; Q9967; 80048; 80202; 84443; 97110-GO; 97161-GP; 97165-GO; 97530-GO; 97530-GP; 97535-GO; 99222; 99232; 99238; A9270-GY; J0696

== ENCOUNTER 2024-08-30 07:20 | Emergency (ER) | payer MEDICARE, BC ==
[2024-08-30 09:29] VITALS: BP 117/60; PULSE 60
== END 2024-08-30 09:00 | disposition home or self-care (01) ==
LOC: FB.ED 07:20
DX: S81.801A Unspecified open wound, right lower leg, initial encounter (principal); I87.2 Venous insufficiency (chronic) (peripheral); C44.722 Squamous cell carcinoma of skin of right lower limb, including hip; I48.91 Unspecified atrial fibrillation; I11.0 Hypertensive heart disease with heart failure; I50.9 Heart failure, unspecified; I25.10 Atherosclerotic heart disease of native coronary artery without angina pectoris; I25.2 Old myocardial infarction; E03.9 Hypothyroidism, unspecified; Z88.2 Allergy status to sulfonamides; Z88.0 Allergy status to penicillin; Z79.82 Long term (current) use of aspirin; Z79.01 Long term (current) use of anticoagulants; Z79.899 Other long term (current) drug therapy; Z95.5 Presence of coronary angioplasty implant and graft; Z95.0 Presence of cardiac pacemaker; Z87.891 Personal history of nicotine dependence; X58.XXXA Exposure to other specified factors, initial encounter; Y93.89 Activity, other specified
CPT/HCPCS: 87070; 87075; 87077; 87186; 87205; 99283

== ENCOUNTER 2024-10-07 20:47 | Emergency (ER) | payer MEDICARE, BC ==
[2024-10-07] MEDS: traMADol 50 MG Tab PO ONE (22:07)
[2024-10-07] MEDS: traMADol 50 MG Tab ONE (22:14)
[2024-10-08 02:05] VITALS: BP 172/96; PULSE 68
== END 2024-10-07 22:50 | disposition home or self-care (01) ==
LOC: FB.ED 20:47
DX: S83.91XA Sprain of unspecified site of right knee, initial encounter (principal); I11.0 Hypertensive heart disease with heart failure; I50.9 Heart failure, unspecified; J45.909 Unspecified asthma, uncomplicated; K21.9 Gastro-esophageal reflux disease without esophagitis; E66.9 Obesity, unspecified; Z68.39 Body mass index [BMI] 39.0-39.9, adult; E03.9 Hypothyroidism, unspecified; Z90.49 Acquired absence of other specified parts of digestive tract; Z79.899 Other long term (current) drug therapy; Z79.890 Hormone replacement therapy; Z88.0 Allergy status to penicillin; Z88.2 Allergy status to sulfonamides; W07.XXXA Fall from chair, initial encounter
CPT/HCPCS: 73562-RT; 99284; A9270-GY

== ENCOUNTER 2024-11-03 01:53 | Emergency (ER) | payer MEDICARE, BC ==
[2024-11-03 02:51] VITALS: BP 149/78; PULSE 76
== END 2024-11-03 02:30 | disposition home or self-care (01) ==
LOC: FB.ED 01:53
DX: Z48.89 Encounter for other specified surgical aftercare (principal); I11.0 Hypertensive heart disease with heart failure; I50.9 Heart failure, unspecified; I48.91 Unspecified atrial fibrillation; I25.2 Old myocardial infarction; I25.10 Atherosclerotic heart disease of native coronary artery without angina pectoris; E03.9 Hypothyroidism, unspecified; Z95.5 Presence of coronary angioplasty implant and graft; Z88.0 Allergy status to penicillin; Z88.8 Allergy status to other drugs, medicaments and biological substances; Z88.2 Allergy status to sulfonamides; Z79.82 Long term (current) use of aspirin; Z79.899 Other long term (current) drug therapy; Z79.01 Long term (current) use of anticoagulants; Z95.0 Presence of cardiac pacemaker; Z86.16 Personal history of COVID-19; Z87.891 Personal history of nicotine dependence
CPT/HCPCS: 99283

== ENCOUNTER 2025-01-02 12:58 | Emergency (ER) | payer MEDICARE, BC ==
[2025-01-02 13:26] VITALS: BP 155/88; PULSE 66
[2025-01-02 13:57] LABS: BASOPHILS ABSOLUTE AUTO 0.0 x10-3/uL (0.0-0.3); BASOPHILS PERCENT AUTO 0.7 % (0.3-3.8); EOSINOPHILS ABSOLUTE AUTO 0.1 x10-3/uL (0.0-0.6); EOSINOPHILS PERCENT AUTO 1.5 % (0.1-6.8); LYMPHOCYTES ABSOLUTE AUTO 1.8 x10-3/uL (0.5-4.5); LYMPHOCYTES PERCENT AUTO 29.1 % (15.8-45.3); MEAN PLATELET VOLUME 7.0 fL (6.7-11.0); MONOCYTES ABSOLUTE AUTO 0.6 x10-3/uL (0.0-1.2); MONOCYTES PERCENT AUTO 8.9 % (5.5-15.2); NEUTROPHILS ABSOLUTE AUTO 3.7 x10-3/uL (1.7-6.9); NEUTROPHILS PERCENT AUTO 59.8 % (40.3-71.8); PLATELET COUNT,PLT 278 x10(3)uL (117-477); RED BLOOD CELL COUNT 4.23 x10(6)uL (3.90-5.90); RED CELL DISTRIBUTION WIDTH 13.2 % (12.4-15.0); WHITE BLOOD CELL COUNT,WBC 6.2 x10-3/uL (3.2-10.1)
[2025-01-02 14:01] LABS: BLOOD UREA NITROGEN,BUN 16 mg/dL (7-18); CARBON DIOXIDE,CO2 28 mmol/L (21-32); CHLORIDE,CL 102 mmol/L (100-110); CREATININE 0.7 mg/dL (0.70-1.30); EST CRCL DRUG DOSING (CG) 92.70 mL/min; ESTIMATED GFR 95 mL/min (>60); GLUCOSE RANDOM 89 mg/dL (80-116); INR 2.13 (1.00-1.24); POTASSIUM,K 4.3 mmol/L (3.5-5.3); SODIUM,NA 139 mmol/L (135-145)
[2025-01-02 14:06] LABS: A/G RATIO 0.9; ALANINE AMINOTRANSFERASE,ALT 29 U/L (12-36); ASPARTATE AMNIOTRANSFERASE,AST 23 IU/L (5-25); BILIRUBIN TOTAL 0.4 mg/dL (0.1-1.3); PROTEIN TOTAL,TP 7.3 g/dL (6.0-8.0)
== END 2025-01-02 15:00 | disposition home or self-care (01) ==
LOC: FB.ED 12:58
DX: I11.0 Hypertensive heart disease with heart failure (principal); I50.9 Heart failure, unspecified; I48.91 Unspecified atrial fibrillation; E78.00 Pure hypercholesterolemia, unspecified; K21.9 Gastro-esophageal reflux disease without esophagitis; Z86.16 Personal history of COVID-19; Z87.891 Personal history of nicotine dependence; Z88.0 Allergy status to penicillin; Z88.2 Allergy status to sulfonamides; Z88.8 Allergy status to other drugs, medicaments and biological substances; Z79.82 Long term (current) use of aspirin; Z79.899 Other long term (current) drug therapy; Z79.01 Long term (current) use of anticoagulants
CPT/HCPCS: 36415; 71045; 80053; 83735; 83880; 84484; 85025; 85610; 86140; 93005; 99285

== ENCOUNTER 2025-03-29 14:29 | Emergency (ER) | payer MEDICARE, BC ==
[2025-03-29 15:05] LABS: BASOPHILS ABSOLUTE AUTO 0.0 x10-3/uL (0.0-0.3); BASOPHILS PERCENT AUTO 0.6 % (0.3-3.8); EOSINOPHILS ABSOLUTE AUTO 0.2 x10-3/uL (0.0-0.6); EOSINOPHILS PERCENT AUTO 2.3 % (0.1-6.8); LYMPHOCYTES ABSOLUTE AUTO 1.7 x10-3/uL (0.5-4.5); LYMPHOCYTES PERCENT AUTO 24.4 % (15.8-45.3); MEAN PLATELET VOLUME 6.6 fL (6.7-11.0); MONOCYTES ABSOLUTE AUTO 0.6 x10-3/uL (0.0-1.2); MONOCYTES PERCENT AUTO 8.1 % (5.5-15.2); NEUTROPHILS ABSOLUTE AUTO 4.4 x10-3/uL (1.7-6.9); NEUTROPHILS PERCENT AUTO 64.6 % (40.3-71.8); PLATELET COUNT,PLT 283 x10(3)uL (117-477); RED BLOOD CELL COUNT 4.29 x10(6)uL (3.90-5.90); RED CELL DISTRIBUTION WIDTH 13.3 % (12.4-15.0); WHITE BLOOD CELL COUNT,WBC 6.9 x10-3/uL (3.2-10.1)
[2025-03-29 15:09] LABS: BLOOD UREA NITROGEN,BUN 13 mg/dL (7-18); CARBON DIOXIDE,CO2 30 mmol/L (21-32); CHLORIDE,CL 101 mmol/L (100-110); CREATININE 0.8 mg/dL (0.70-1.30); EST CRCL DRUG DOSING (CG) 78.56 mL/min; ESTIMATED GFR 92 mL/min (>60); GLUCOSE RANDOM 81 mg/dL (80-116); POTASSIUM,K 4.1 mmol/L (3.5-5.3); SODIUM,NA 137 mmol/L (135-145)
[2025-03-29 15:11] LABS: INR 2.49 (1.00-1.24)
[2025-03-29 15:15] LABS: A/G RATIO 0.9; ALANINE AMINOTRANSFERASE,ALT 35 U/L (12-36); ASPARTATE AMNIOTRANSFERASE,AST 25 IU/L (5-25); BILIRUBIN TOTAL 0.5 mg/dL (0.1-1.3); PROTEIN TOTAL,TP 7.3 g/dL (6.0-8.0)
[2025-03-29 16:51] VITALS: BP 158/81; PULSE 60
== END 2025-03-29 16:55 | disposition home or self-care (01) ==
LOC: FB.ED 14:29
DX: M16.12 Unilateral primary osteoarthritis, left hip (principal); I11.0 Hypertensive heart disease with heart failure; I50.9 Heart failure, unspecified; I25.10 Atherosclerotic heart disease of native coronary artery without angina pectoris; I48.91 Unspecified atrial fibrillation; E66.9 Obesity, unspecified; E03.9 Hypothyroidism, unspecified; K21.9 Gastro-esophageal reflux disease without esophagitis; J45.909 Unspecified asthma, uncomplicated; Z87.891 Personal history of nicotine dependence; Z90.89 Acquired absence of other organs; Z79.82 Long term (current) use of aspirin; Z79.890 Hormone replacement therapy; Z86.16 Personal history of COVID-19; Z95.5 Presence of coronary angioplasty implant and graft; Z79.899 Other long term (current) drug therapy; Z79.01 Long term (current) use of anticoagulants; Z88.0 Allergy status to penicillin; Z88.2 Allergy status to sulfonamides; Z88.1 Allergy status to other antibiotic agents; Z68.39 Body mass index [BMI] 39.0-39.9, adult
CPT/HCPCS: 36415; 73700; 80053; 85025; 85610; 86140; 99284; A9270